=== PATIENT | male | born 1935 | race Caucasian/White ===

== ENCOUNTER → 2016-11-11 | Outpatient (CLI) | payer OTHER ==
[~2016-11-11] MED LIST: ASPEC81 PO; ATOR-26 PO; CLOP1TAB15 PO; ENAL1TAB29 PO; EZET10TA63 PO; FENO200C6 PO; HYDC25 PO; METO25TA3 PO; MULT-513 PO; PRLSRUNK PO
== END | disposition home or self-care (01) ==
LOC: C.PATHSPEC 11:12
PROVIDERS: ATTEND Dentist Endodontics
DX: K05.5 Other periodontal diseases (principal)

== ENCOUNTER → 2017-01-21 | Outpatient (CLI) | payer OTHER ==
[2017-01-21 09:37] LABS: BASO % 0.4 %; BASO ABS # 0.03 K/uL (0-0.2); COMPLETE YES; EOS % 6.8 %; HEMATOCRIT 41.4 % (42-52); IG% 0.3 %; LYMPH % 17.6 %; LYMPH ABS # 1.27 K/uL (1.2-3.4); MEAN CORPUSCULAR HEMOGLOBIN 32.2 pg (25-34); MONO % 21.5 %; NEUT % 53.4 %; PLATELET COUNT 265 K/uL (130-400); WHITE BLOOD COUNT 7.22 K/uL (4.8-10.8)
[2017-01-21 09:51] LABS: ALT/SGPT 29 U/L (12-78); AST/SGOT 21 U/L (15-37); BLOOD UREA NITROGEN 16 mg/dl (7-18); BUN/CREATININE RATIO 13.2 (10-20); CALCIUM 8.8 mg/dl (8.5-10.1); CARBON DIOXIDE 30 mmol/L (21-32); CHLORIDE 95 mmol/L (98-107); CHOLESTEROL 75 mg/dl (0-200); GLUCOSE 87 mg/dl (70-99); POTASSIUM 3.8 mmol/L (3.5-5.1); SODIUM 130 mmol/L (136-145); TRIGLYCERIDES 105 mg/dl (0-150); VERY LOW DENSITY LIPOPROT CALC 21 mg/dl
[2017-01-21 10:01] LABS: ALB/GLOB RATIO 1.2 (0.9-2); ALKALINE PHOSPHATASE 93 U/L (45-117); CHOLESTEROL/HDL RATIO 1.8; HDL CHOLESTEROL 42 mg/dl; LDL CHOLESTEROL CALCULATED 12 mg/dl; THYROID STIMULATING HORMONE 0.993 uIu/ml (0.300-4.500)
== END | disposition home or self-care (01) ==
LOC: C.LAB1850 07:47
PROVIDERS: ATTEND Nurse Practitioner Family
DX: K21.9 Gastro-esophageal reflux disease without esophagitis (principal); E78.00 Pure hypercholesterolemia, unspecified; I10 Essential (primary) hypertension; I25.10 Atherosclerotic heart disease of native coronary artery without angina pectoris; Z85.46 Personal history of malignant neoplasm of prostate

== ENCOUNTER → 2017-04-20 | Outpatient (CLI) | payer OTHER ==
[~2017-04-20] VITALS: Ht 177.8 cm; Wt 94.1 kg
[~2017-04-20] MED LIST changes: +AMLO-110 PO; +ASPI81TA21 PO; +CITA10TA4 PO; +COEN1CAP7 PO; +DTR/5 PO; +HYDR25TA4 PO; +ISOS120T5 PO; +METO50TA7 PO; +NTRGSL/4 UT; +PANT40TA PO; +RANITAB33 PO
[2017-04-20 13:37] VITALS: BP 150/80; PULSE 66; Ht 177.8 cm; Wt 94.1 kg
== END | disposition home or self-care (01) ==
LOC: C.NEUR 13:00
PROVIDERS: ATTEND Physician Assistant Medical
DX: G47.33 Obstructive sleep apnea (adult) (pediatric) (principal); R53.83 Other fatigue; I25.10 Atherosclerotic heart disease of native coronary artery without angina pectoris

== ENCOUNTER 2017-04-21 16:55 | Emergency (ER) | payer OTHER ==
[~2017-04-21] VITALS: Ht 177.8 cm; Wt 94.0 kg
[~2017-04-21 16:55] MED LIST changes: -AMLO-110 PO; -ASPI81TA21 PO; -CITA10TA4 PO; -COEN1CAP7 PO; -DTR/5 PO; -HYDR25TA4 PO; -ISOS120T5 PO; -METO50TA7 PO; -NTRGSL/4 UT; -PANT40TA PO; -RANITAB33 PO
[2017-04-21 17:02] VITALS: TEMP 37; Ht 177.8 cm; Wt 94.0 kg
[2017-04-21] MEDS ORDERED: FAMOTIDINE 20MG/5ML IV PUSH IV STA (18:55)
[2017-04-21] MEDS ORDERED: SODIUM CHLORIDE 0.9% 1000ML 1,000 ML IV STA (18:55)
--- NOTE | 2017-04-21 19:04 | EMERGENCY ROOM VISIT NOTE ---
History Report prepared by Eddi: Annmarie Espinosa Under the Supervision of: Dr. Meir Boateng M.D. First contact with patient: 18:50 Chief Complaint: OTHER COMPLAINT Stated Complaint: PAIN IN CHEST,CARDIAC HX History of Present Illness The patient is a 81 year old male who presents to the Emergency Room with complaints of constant central chest pain beginning about 3 hours ago. The patient states he sneezed several times which started his chest pain. He reports that over the past couple months when he would sneeze he would had episodes of chest pain similar to this. The patient has four [address] He has a history of heart attacks, GERD, and bypass surgery. The patient takes Plavix and an Aspirin daily. He reports his pain doesn't feel like his GERD or previous heart attacks. The patient follows up with Dr. Veronica-Cardiology. He notes shortness of breath but denies any sweating, lightheadedness, urinary symptoms, or nausea. The patient reports his bowel movements have been normal and regular. He notes taking nitroglycerin prior to arrival with no relief. The patient has a history of prostate cancer. Source of History: patient Onset: 3 hours ago Position: chest Timing: constant Modifying Factors (Relieving): other (none) Associated Symptoms: + chest pain, + SOB, No diaphoresis, No nausea, No urinary symptoms Review of Systems See HPI for pertinent positives and negatives. A total of ten systems were reviewed and were otherwise negative. Past Medical & Surgical Medical Problems: (1) GERD (gastroesophageal reflux disease) (2) Heart attack (3) Prostate cancer Family History Patient reports no known family medical history. Social History Smoking Status: Never Smoker Marital Status: Housing Status: lives with significant other Current/Historical Medications Scheduled Amlodipine (Norvasc), 5 MG PO DAILY Aspirin Enteric Coated (Ecotrin Or Generic), 81 MG PO DAILY Atorvastatin (Lipitor), 80 MG PO DAILY Citalopram Hydrobromide (Citalopram Hydrobromide), 1 TAB PO DAILY Clopidogrel (Plavix), 75 MG PO DAILY Coenzyme Q10 (Ubidecarenone) (Coq10), 400 MG PO DAILY Enalapril Maleate (Vasotec), 20 MG PO HS Ezetimibe (Zetia), 10 MG PO DAILY Hydrochlorothiazide (Hctz), 25 MG PO DAILY Isosorbide Mononitrate Ext Rel (Imdur Ext Rel), 120 MG PO QAM Metoprolol Succ (Toprol Xl) (Toprol-Xl), 50 MG PO QPM Metoprolol Succ (Toprol Xl) (Toprol-Xl), 25 MG PO QAM Multivitamins/Minerals (Mvi With Minerals), 1 TAB PO DAILY Nitroglycerin (Nitrostat), 0.4 MG UT PRN Pantoprazole (Protonix), 40 MG PO DAILY Ranitidine Hcl (Zantac), 75 MG PO DAILY Allergies Coded Allergies: No Known Allergies (Unverified , 03/21/11) Physical Exam Vital Signs Date Time Temp Pulse Resp B/P (MAP) Pulse Ox O2 Delivery O2 Flow Rate FiO2 04/21/17 23:11 79 20 157/91 93 Room Air 04/21/17 22:36 66 22 95 04/21/17 22:01 172/84 04/21/17 21:40 67 22 95 04/21/17 21:30 152/82 04/21/17 21:00 158/86 04/21/17 20:40 64 23 97 04/21/17 20:35 67 25 96 04/21/17 20:30 164/88 04/21/17 20:05 75 25 96 04/21/17 20:00 158/81 04/21/17 19:35 64 22 95 04/21/17 19:34 64 04/21/17 19:32 67 27 145/71 95 Room Air 04/21/17 19:08 95 Room Air 04/21/17 17:02 37.0 64 18 122/71 93 Room Air Physical Exam GENERAL: Awake, alert, well-appearing, in no distress HENT: Normocephalic, atraumatic. Oropharynx unremarkable. EYES: Normal conjunctiva. Sclera non-icteric. NECK: Supple. No nuchal rigidity. FROM. No JVD. RESPIRATORY: Clear to auscultation. CARDIAC: Regular rate, normal rhythm. Extremities warm and well perfused. Pulses equal. ABDOMEN: Mild epigastric discomfort, no peritoneal signs. Soft, non-distended. No rebound or guarding. No masses. RECTAL: Deferred. MUSCULOSKELETAL: Chest examination reveals no tenderness. The back is symmetrical on inspection without obvious abnormality. There is no CVA tenderness to palpation. No joint edema. LOWER EXTREMITIES: Calves are equal size bilaterally and non-tender. No edema. No discoloration. NEURO: Normal sensorium. No sensory or motor deficits noted. SKIN: No rash or jaundice noted. Medical Decision & Procedures ER Provider Diagnostic Interpretation: Radiology results as stated below per my review and radiologist interpretation: CHEST ONE VIEW PORTABLE FINDINGS: There are postsurgical changes of midline sternotomy. There is mild elevation right hemidiaphragm. The heart is at the upper limits of normal in size. There is no failure. There is no focal pulmonary consolidation. There are no pleural effusions. There is atheromatous calcification of the aortic knob.[ IMPRESSION: No active disease in the chest. Electronically signed by: Corwin Shrestha M.D. Laboratory Results 04/21/17 19:15 Red Blood Count 4.73, Mean Corpuscular Volume 96.8, Mean Corpuscular Hemoglobin 33.6, Mean Corpuscular Hemoglobin Concent 34.7, Mean Platelet Volume 10.5, Neutrophils (%) (Auto) 64.9, Lymphocytes (%) (Auto) 19.0, Monocytes (%) (Auto) 11.2, Eosinophils (%) (Auto) 4.5, Basophils (%) (Auto) 0.3, Neutrophils # (Auto ) 5.63, Lymphocytes # (Auto) 1.65, Monocytes # (Auto) 0.97, Eosinophils # (Auto ) 0.39, Basophils # (Auto) 0.03 04/21/17 19:15 Test 04/21/17 19:15 04/21/17 19:21 04/21/17 22:05 White Blood Count 8.68 K/uL (4.8-10.8) Red Blood Count 4.73 M/uL (4.7-6.1) Hemoglobin 15.9 g/dL (14.0-18.0) Hematocrit 45.8 % (42-52) Mean Corpuscular Volume 96.8 fL (80-100) Mean Corpuscular Hemoglobin 33.6 pg (25-34) Mean Corpuscular Hemoglobin Concent 34.7 g/dl (32-36) Platelet Count 242 K/uL (130-400) Mean Platelet Volume 10.5 fL (7.4-10.4) Neutrophils (%) (Auto) 64.9 % Lymphocytes (%) (Auto) 19.0 % Monocytes (%) (Auto) 11.2 % Eosinophils (%) (Auto) 4.5 % Basophils (%) (Auto) 0.3 % Neutrophils # (Auto) 5.63 K/uL (1.4-6.5) Lymphocytes # (Auto) 1.65 K/uL (1.2-3.4) Monocytes # (Auto) 0.97 K/uL (0.11-0.59) Eosinophils # (Auto) 0.39 K/uL (0-0.5) Basophils # (Auto) 0.03 K/uL (0-0.2) RDW Standard Deviation 48.2 fL (36.4-46.3) RDW Coefficient of Variation 13.5 % (11.5-14.5) Immature Granulocyte % (Auto) 0.1 % Immature Granulocyte # (Auto) 0.01 K/uL (0.00-0.02) Anion Gap 8.0 mmol/L (3-11) Est Creatinine Clear Calc Drug Dose 54.2 ml/min Estimated GFR () 63.4 Estimated GFR (Non- 54.7 BUN/Creatinine Ratio 16.5 (10-20) Calcium Level 9.3 mg/dl (8.5-10.1) Total Bilirubin 0.6 mg/dl (0.2-1) Direct Bilirubin 0.2 mg/dl (0-0.2) Aspartate Amino Transf (AST/SGOT) 29 U/L (15-37) Alanine Aminotransferase (ALT/SGPT) 38 U/L (12-78) Alkaline Phosphatase 99 U/L (45-117) Total Protein 7.5 gm/dl (6.4-8.2) Albumin 3.9 gm/dl (3.4-5.0) Lipase 259 U/L (73-393) Bedside Lactic Acid Venous 1.65 mmol/L (0.90-1.70) Troponin I < 0.015 ng/ml (0-0.045) Laboratory results reviewed by me Medications Administered Medications (Trade) Dose Ordered Sig/Samantha Route Start Time Stop Time Status Last Admin Dose Admin Famotidine (Pepcid 20mg Iv Push) 20 mg NOW STAT IV 04/21/17 18:55 04/21/17 19:00 DC 04/21/17 19:31 20 MG Sodium Chloride 1,000 ml @ 999 mls/hr Q1H1M STAT IV 04/21/17 18:55 04/21/17 19:55 DC 04/21/17 19:31 999 MLS/HR Ketorolac Tromethamine (Toradol Inj) 15 mg NOW STAT IV 04/21/17 22:40 04/21/17 22:42 DC 04/21/17 23:08 15 MG Miscellaneous Medication (Gi Cocktail) 24 ml NOW STAT PO 04/21/17 22:40 04/21/17 22:42 DC 04/21/17 23:09 24 ML ECG Indication: chest pain Rate (beats per minute): 64 Rhythm: normal sinus Findings: no acute ischemic change, other (normal axis, nonspecific intraventicular block ) Comparison ECG Date: 03/22/2011 ED Course 1853: The patient was evaluated in room A10. A complete history and physical exam was performed. 2335: I updated the patient on his test results. 2346: I reevaluated the patient. Discussed results and discharge instructions: He verbalized understanding and agreement. The patient is ready for discharge. Medical Decision I reviewed the patient's past medical history, medications, and the nursing notes as described above. Differential diagnosis: Etiologies such as cardiac ischemia, aortic dissection, pulmonary embolism, pneumonia, pneumothorax, musculoskeletal, infections, pericarditis, myocarditis , esophageal rupture, gastrointestinal, as well as others were entertained. The patient is an 81-year-old gentleman with a past medical history of CAD status post stents who presents emergency Department with chest pain in the setting of severe sneezing episodes in the setting of environmental allergies per hpi. On arrival the patient is no acute distress, afebrile stable vital signs. Patient has reproducible pain to the epigastrium and sternum suggesting likely muscular etiology versus gastritis/reflux. EKG unremarkable. Troponin negative 2 with delta troponin 6 hours from onset of symptoms. Thus cardiac etiology is unlikely. Labs otherwise unremarkable including WBC within normal limits. Patient reports improvement of his symptoms however then had repeat sneezing episode with return of his pain. Again findings most consistent with muscular strain/costochondritis. Discussed with the patient strategies to minimize sneezing episodes with antihistamine and Flonase. Findings and plan for follow-up reviewed with patient. Patient agreeable and d/c'd per discharge instructions. Medication Reconcilliation Current Medication List: was personally reviewed by vt Blood Pressure Screening Patient's blood pressure: Elevated blood pressure Blood pressure disposition: Elevated BP felt to be situational Impression Primary Impression: Substernal chest pain Scribe Attestation The scribe's documentation has been prepared under my direction and personally reviewed by me in its entirety. I confirm that the note above accurately reflects all work, treatment, procedures, and medical decision making performed by me. Departure Information Dispostion Home / Self-Care Referrals Jorge Owens III, CRNP (PCP) Forms HOME CARE DOCUMENTATION FORM, IMPORTANT VISIT INFORMATION, WORK / SCHOOL INSTRUCTIONS Patient Instructions ED Chest Pain Atypical Unkn Cause, ED Chest Pain Costochondritis, My [facility] Additional Instructions Please follow up with your primary care physician in the next 1-3 days for re- evaluation. The cause of your symptoms is not clear at this time but may be due to muscular strain in the setting of your sneezing. Otherwise, your exam, EKG, chest xray, and lab results did not show signs of an emergent condition at this time. Use your Flonase daily to help prevent sneezing episodes, which may provoke your symptoms. Additional you may use [id number] antihistamines such as Claritin or Zyrtec for additional allergy relief. Return to the emergency department for worsening symptoms as described in the accompanying instructions.
[2017-04-21 19:08] VITALS: O2SAT 95
--- NOTE | 2017-04-21 19:27 | DIAGNOSTIC IMAGING REPORT ---
CHEST ONE VIEW PORTABLE CLINICAL HISTORY: CHEST PAIN COMPARISON STUDY: 02/13/2016 FINDINGS: There are postsurgical changes of midline sternotomy. There is mild elevation right hemidiaphragm. The heart is at the upper limits of normal in size. There is no failure. There is no focal pulmonary consolidation. There are no pleural effusions. There is atheromatous calcification of the aortic knob.[ IMPRESSION: No active disease in the chest. Electronically signed by: Corwin Shrestha M.D. 04/21/2017 7:25 PM Dictated Date/Time: 04/21/2017 7:25 PM
[2017-04-21] MEDS ORDERED: NTRGSL/4 UT (19:28)
[2017-04-21] MEDS ORDERED: COEN1CAP7 PO (19:28)
[2017-04-21] MEDS ORDERED: RANITAB33 PO (19:28)
[2017-04-21] MEDS ORDERED: ASPI81TA21 PO (19:28)
[2017-04-21] MEDS ORDERED: DTR/5 PO (19:28)
[2017-04-21] MEDS ORDERED: ISOS120T5 PO (19:28)
[2017-04-21] MEDS ORDERED: HYDR25TA4 PO (19:28)
[2017-04-21] MEDS ORDERED: PANT40TA PO (19:28)
[2017-04-21] MEDS ORDERED: AMLO-110 PO (19:28)
[2017-04-21] MEDS ORDERED: CITA10TA4 PO (19:28)
[2017-04-21] MEDS ORDERED: METO50TA7 PO ×2 (19:28)
[2017-04-21 19:35] LABS: BASO % 0.3 %; BASO ABS # 0.03 K/uL (0-0.2); EOS % 4.5 %; EOS ABS # 0.39 K/uL (0-0.5); HEMATOCRIT 45.8 % (42-52); HEMOGLOBIN 15.9 g/dL (14.0-18.0); IG# 0.01 K/uL (0.00-0.02); LYMPH ABS # 1.65 K/uL (1.2-3.4); MEAN CELL VOLUME 96.8 fL (80-100); MEAN CORPUSCULAR HEMOGLOBIN 33.6 pg (25-34); MEAN CORPUSCULAR HGB CONC 34.7 g/dl (32-36); MEAN PLATELET VOLUME 10.5 fL (7.4-10.4); MONO % 11.2 %; MONO ABS # 0.97 K/uL (0.11-0.59); NEUT % 64.9 %; NEUT ABS # 5.63 K/uL (1.4-6.5); PLATELET COUNT 242 K/uL (130-400); RED CELL DISTRIBUTION WIDTH CV 13.5 % (11.5-14.5); RED CELL DISTRIBUTION WIDTH SD 48.2 fL (36.4-46.3); WHITE BLOOD COUNT 8.68 K/uL (4.8-10.8)
[2017-04-21 20:10] LABS: ALBUMIN 3.9 gm/dl (3.4-5.0); ALKALINE PHOSPHATASE 99 U/L (45-117); ALT/SGPT 38 U/L (12-78); AST/SGOT 29 U/L (15-37); BLOOD UREA NITROGEN 20 mg/dl (7-18); CALCIUM 9.3 mg/dl (8.5-10.1); CARBON DIOXIDE 27 mmol/L (21-32); CREATININE 1.23 mg/dl (0.60-1.40); GLUCOSE 115 mg/dl (70-99); LIPASE 259 U/L (73-393); POTASSIUM 3.9 mmol/L (3.5-5.1); SODIUM 138 mmol/L (136-145); TOTAL PROTEIN 7.5 gm/dl (6.4-8.2)
[2017-04-21] MEDS ORDERED: KETOROLAC TROMETHAMINE 30 MG/ML VIAL IV STA (22:40)
[2017-04-21] MEDS ORDERED: GI COCKTAIL PO STA (22:40)
[2017-04-21] MEDS ORDERED: LIDOCAINE HCL 2% VISC SOLN 20 ML UDC ONE (23:06)
[2017-04-21] MEDS ORDERED: ALUMINUM/MAGNESIUM SUSP 30 ML UDC ONE (23:06)
[2017-04-21 23:11] VITALS: BP 157/91; PULSE 79; O2SAT 93
== END 2017-04-21 23:35 | disposition home or self-care (01) ==
LOC: C.EDB 16:55 → C.EDA 23:35
DX: R07.2 Precordial pain (principal); K21.9 Gastro-esophageal reflux disease without esophagitis; I50.9 Heart failure, unspecified; Z85.46 Personal history of malignant neoplasm of prostate; Z79.82 Long term (current) use of aspirin; Z79.899 Other long term (current) drug therapy

== ENCOUNTER → 2017-06-15 | Outpatient (CLI) | payer OTHER ==
[~2017-06-15] MED LIST changes: +AMLO-110 PO; -ASPEC81 PO; +ASPI81TA21 PO; +CITA10TA4 PO; +COEN1CAP7 PO; -FENO200C6 PO; -HYDC25 PO; +HYDR25TA4 PO; +ISOS120T5 PO; -METO25TA3 PO; +METO50TA8 PO; +NTRGSL/4 UT; +PANT40TA PO; -PRLSRUNK PO; +RANITAB33 PO
== END | disposition home or self-care (01) ==
LOC: C.LAB1850 13:24
PROVIDERS: ATTEND Urology
DX: C61 Malignant neoplasm of prostate (principal); R33.9 Retention of urine, unspecified; N20.0 Calculus of kidney

== ENCOUNTER → 2017-08-23 | Outpatient (CLI) | payer OTHER ==
[~2017-08-23] MED LIST changes: +ASPI-319 PO; -ASPI81TA21 PO
[2017-08-23 12:56] LABS: BLOOD UREA NITROGEN 26 mg/dl (7-18); CALCIUM 8.9 mg/dl (8.5-10.1); CARBON DIOXIDE 29 mmol/L (21-32); CREATININE 1.37 mg/dl (0.60-1.40); GLUCOSE 76 mg/dl (70-99); POTASSIUM 4.1 mmol/L (3.5-5.1); SODIUM 137 mmol/L (136-145)
== END | disposition home or self-care (01) ==
LOC: C.LAB1850 11:04
PROVIDERS: ATTEND Internal Medicine Cardiovascular Disease
DX: I25.5 Ischemic cardiomyopathy (principal)

== ENCOUNTER → 2017-08-23 | Outpatient (CLI) | payer OTHER ==
--- NOTE | 2017-08-23 11:04 | DIAGNOSTIC IMAGING REPORT ---
(RENAL)RETROPERITON COMP HISTORY: 82 years-old Male C61 Neoplasm of prostate, [id number] Incomplete bladder empt COMPARISON: Acute abdominal series radiographs 02/13/2016 TECHNIQUE: Multiple real-time sonographic images of the kidneys and urinary bladder were obtained assessing grayscale appearance and color flow FINDINGS: The right kidney measures 13.1 x 5.5 x 5.8 cm demonstrates no shadowing renal calculi or hydronephrosis. There are several cysts noted about the right kidney, largest which measures up to 1.1 x 1.3 x 1.1 cm within the interpolar distribution. Left kidney measures 11.8 x 5.7 x 4.7 cm demonstrates no hydronephrosis. Multiple cysts are also noted on the left, largest of which measures up to 1.2 x 1.1 x 1.1 cm within the superior pole. 3 mm calculus of the interpolar left kidney also noted. Left ureteral jet not identified. Mild prominence of the prostate. Urinary bladder is otherwise unremarkable. Post void residual of 28 mL noted. Incidental note is made of mildly heterogeneous coarsened echogenicity of the liver which is nonspecific without focal mass identified. IMPRESSION: 1. 3 mm nonobstructing calculus of the interpolar left kidney. No hydronephrosis. 2. Bilateral renal cysts. 3. Urinary bladder postvoid residual of 28 mL. The above report was generated using voice recognition software. It may contain grammatical, syntax or spelling errors. Electronically signed by: Rio Banegas M.D. 08/23/2017 11:03 AM Dictated Date/Time: 08/23/2017 11:00 AM
== END | disposition home or self-care (01) ==
LOC: C.ULTR 09:55
PROVIDERS: ATTEND Urology
DX: C61 Malignant neoplasm of prostate (principal); R33.9 Retention of urine, unspecified; N20.0 Calculus of kidney; N28.1 Cyst of kidney, acquired

== ENCOUNTER 2021-09-09 08:38 | Inpatient (IN) ==
[2021-09-09] MEDS ORDERED: MECLIZINE HCL 25 MG TAB PO STA (08:53)
--- NOTE | 2021-09-09 08:55 | Emergency Department Note ---
Impression & Plan Acute hyponatremia ADMIT ED Provider Note HPI: The patient is an 86-year-old gentleman with history of coronary artery disease, presents emergency department with a chief complaint of dizziness. Patient states that the symptoms have been ongoing for about the past week, he states his symptoms worsen with certain movements as laying flat and getting up from a seated position or laying down seem to cause him to feel acutely dizzy. Patient states that when he laid down on the MRI table 1 week ago for an MRI of his lumbar spine, he started to feel the sensation after the exam was complete and he got up from laying down. Patient states he has had some nausea, 1 episode of vomiting, denies any chest pain or shortness of breath. Patient also states that on Wednesday he had a Thomas catheter removed secondary to an obstruction of the prostate area from scar tissue, states that he has only had "dribbles" of urine since the catheter was removed. On arrival to the ED the patient does not have any focal deficits, there is no ataxia on [id number] testing bilate rally or on [id number] testing bilaterally, he is otherwise hemodynamically stable and nontoxic-appearing on my initial assessment. ROS: -Neuro: Dizziness/vertigo *10 point review systems was conducted and is otherwise negative unless stated above *Outpatient medications and allergy history reviewed PE: General: Alert, NAD HEENT: Normocephalic, atraumatic Eyes: Extraocular eye movement is intact, no scleral erythema Pulmonary: Clear to auscultation bilaterally, no wheezing Cardio: Regular rate and rhythm GI: Abdomen is soft, nontender : No suprapubic tenderness MSK: No evidence of trauma or malformation of the extremities, no edema Skin: No evidence of rash Neuro: Alert, no focal deficits, equal bilateral face burler strength, symmetrical facial movements are appreciated, no ataxia on [id number] testing bilaterally, no ataxia on [id number] testing bilateral Psychiatric: Cooperative vehicle 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 technician: - An order was placed for continuous cardiac monitoring - Patient was noted to be in sinus rhythm with rate of 60 EKG: Rate: 60 Rhythm: Sinus rhythm Intervals: QRS 138 ms, otherwise within normal limits ST changes: No ST elevation Time: 0856 NIH STROKE SCALE: 1A: Level of consciousness Alert; keenly responsive 0 1B: Ask month and age Both questions right 0 1C: 'Blink eyes' & 'squeeze hands' Performs both tasks 0 2: Horizontal extraocular movements Normal 0 3: Visual car No visual loss 0 4: Facial palsy Normal symmetry 0 5A: Left arm motor drift No drift for 10 seconds 0 5B: Right arm motor drift No drift for 10 seconds 0 6A: Left leg motor drift No drift for 5 seconds 0 6B: Right leg motor drift No drift for 5 seconds 0 7: Limb Ataxia No ataxia 0 8: Sensation Normal; no sensory loss 0 9: Language/aphasia Normal; no aphasia 0 10: Dysarthria Normal 0 11: Extinction/inattention No abnormality 0 TOTAL NIH SCORE =0 Medical Decision Making: Patient presented to the emergency department with symptoms of nausea, states he has had dizziness mostly with positional changes that have been ongoing for the past week. Patient states in general he just does not feel well. On arrival here to the ED he is hemodynamically stable, he is in no acute distress on my initial assessment, he does not have any focal deficits. He has had symptoms for about 1 week, he would not be considered a candidate for any aggressive therapy such as tPA or endovascular intervention for posterior circulation stroke. Early after arrival IV was established, lab work obtained, patient was placed on engine monitor. CT imaging of the head as well as CT imaging of the abdomen and pelvis were ordered. CT imaging of the head does not show any evidence of stroke or intracranial bleeding. CT imaging of the abdomen pelvis without contrast does not show any evidence of urinary tract obstruction, no mention of significant bladder distention. Patient was given meclizine and a 500 cc bolus of normal saline. Lab work did result with evidence of hyponatremia at 119, also hypochloremia. Patient is noted to be on Lasix and he states he has been taking this for the past several days but he normally only uses it "as needed" for swelling in his legs. Suspect this may be the source of his hyponatremia. Patient is still experiencing some dizziness after getting the CT scan. I do have concern given his age and multiple risk factors that posterior circulation stroke should be ruled out, therefore MRI imaging of the brain is ordered. Given his sodium being low, he will require admission, I did discuss this with the on-call midlevel provider for the [facility] hospitalist group and the patient will be admitted for further management. Diagnosis: 1. Acute hyponatremia 2. Dizziness 3. Generalized weakness 4. Hypochloremia 5. Sensation of incomplete voiding of urine Disposition: Admission Hiren Zepeda DO Emergency Medicine Past Med/Surg History Medical History CAD (coronary artery disease) Cardiomyopathy, ischemic Depression GERD (gastroesophageal reflux disease) controlled Hiatal hernia History of adenocarcinoma of prostate History of basal cell carcinoma removed History of squamous cell carcinoma removed Hyperlipidemia Hypertension IVCD (intraventricular conduction defect) follows with Dr. Veronica Myocardial Infarction 1984: CABG 2015: stents Nephrolithiasis Neuropathy of both feet Osteoarthritis Osteoporosis Pulmonary embolism Post-op prostate surgery (1999) Sleep apnea CPAP Spinal stenosis Surgical History H/O cataract extraction bilat History of appendectomy History of colonoscopy History of coronary artery bypass graft x 6 (~1983) 1983 > follows with Dr. Veronica History of esophagogastroduodenoscopy (EGD) History of hernia repair History of lithotripsy (~2012) History of prostatectomy (~1999) hx of cancer> no radiation History of tonsillectomy and adenoidectomy History of tooth extraction Status post arterial stent 4 stents total 2005, 2014 Family History Mother , age 86 of heart issues Myocardial infarction Hypertension Father , age 88 of heart issues Myocardial infarction Prostate cancer Hypertension Brother Myocardial infarction Lung cancer Denies family history of Colon cancer Ovarian cancer Breast cancer Social History Smoking Status: Former smoker Tobacco Type: Cigarettes Age Started Using Tobacco: 18; Age Quit Using Tobacco: 27; packs per day: 0.5; Years Smoked: 9; Second Hand Exposure: No; Hx Alcohol Use: No Hx Substance Use: No Preferred Language: Maltese Communication Ability: Effective Visual Impairment: Limited Hearing Ability: Normal Adjunct Art History Instructor Required: No Beliefs That Will Affect Care: None marital status: Current Living Situation: Spouse current occupational status: retired 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) How many Children do You have: 1 Feels Safe at Home: Yes Childhood Exposure to Second-Hand Smoke: No caffeine: No during the past year weight has: remained stable Dental Care, Regularly: Yes Physical Activity Frequency: Does not Exercise Seatbelt Use: sometimes Sunscreen Use: No Assistive Devices: CPAP and Glasses Allergies Allergies Allergy/AdvReac Type Severity Reaction Status Date / Time meloxicam AdvReac Mild nausea Verified 09/09/21 10:07 Home Meds Home Medications Medication Instructions Recorded Confirmed aspirin 81 mg tablet,delayed 81 mg PO HS 12/17/18 09/09/21 release coQ10 (ubiquinol) 100 mg capsule 200 mg PO HS 12/17/18 09/09/21 multivitamin 1 tab PO HS 12/17/18 09/09/21 denosumab 60 mg/mL subcutaneous 60 mg SUBCUT .Q6M 06/05/21 09/09/21 syringe (Prolia) ezetimibe 10 mg tablet 10 mg PO QAM 07/28/21 09/09/21 spironolactone 25 mg tablet 25 mg PO QAM 07/28/21 09/09/21 (Aldactone) pantoprazole 20 mg tablet,delayed 20 mg PO QAM 08/20/21 09/09/21 release tamsulosin 0.4 mg capsule 0.4 mg PO HS 08/20/21 09/09/21 Previous Rx's Medication Instructions Recorded nitroglycerin 0.4 mg sublingual 0.4 mg SUBLINGUAL UD PRN #30 tab 05/22/20 tablet (Nitrostat) ketoconazole 2 % shampoo 1 applic TOPICAL .COMPLEX #120 ml 10/24/20 furosemide 20 mg tablet 20 mg PO DAILY PRN #30 tab 03/13/21 carvedilol 25 mg tablet 25 mg PO BID #180 tab 05/15/21 atorvastatin 80 mg tablet 80 mg PO QAM #90 tab 07/10/21 sacubitril 97 mg-valsartan 103 mg 1 tab PO BID #180 tab 08/25/21 tablet (Entresto) citalopram 20 mg tablet 20 mg PO HS #90 tab 08/26/21 Results & Data (ED) Vital Signs Vital Signs - 24 hr 09/09/21 08:42 09/09/21 09:08 09/09/21 09:30 Temperature 36.8 C Temperature Source Temporal Artery Scan Pulse Rate 64 59 L 70 Pulse Rate from SpO2 Sensor 59 L Pulse Rhythm Regular Pulse Strength Normal Respiratory Rate 20 22 20 Respiratory Effort / Characteristics Non-Labored Spontaneous Respiratory Depth Normal Respiratory Pattern Regular Blood Pressure 148/84 H Blood Pressure Mean 105 Blood Pressure Position Sitting Pulse Oximetry 98 97 Oxygen Delivery Method Room Air Sepsis Recent Fever Within 48 Hours No Sepsis New/Unexplained Change in Mental Status N/A Sepsis Action Taken by Nursing No Action Required 09/09/21 10:00 Temperature Temperature Source Pulse Rate 63 Pulse Rate from SpO2 Sensor 63 Pulse Rhythm Pulse Strength Respiratory Rate 21 Respiratory Effort / Characteristics Respiratory Depth Respiratory Pattern Blood Pressure 151/82 H Blood Pressure Mean 105 Blood Pressure Position Pulse Oximetry 98 Oxygen Delivery Method Sepsis Recent Fever Within 48 Hours Sepsis New/Unexplained Change in Mental Status Sepsis Action Taken by Nursing Laboratory Data Result diagrams: 09/09/21 09:00 09/09/21 09:00 Lab Results 09/09/21 09/09/21 09/09/21 Range/Units 08:58 09:00 09:00 WBC 7.88 (4.8-10.8) K/uL RBC 3.76 L (4.7-6.1) M/uL Hgb 12.3 L (14.0-18.0) g/dL Hct 34.3 L (42-52) % MCV 91.2 (80-100) fL MCH 32.7 (25-34) pg MCHC 35.9 (32-36) g/dL RDW Std Deviation 41.0 (36.4-46.3) fL RDW Coeff of Pito 12.2 (11.5-14.5) % Plt Count 272 (130-400) K/uL MPV 9.4 (7.4-10.4) fL Immature Gran % (Auto) 0.4 % Neut % (Auto) 67.0 % Lymph % (Auto) 22.5 % [place] % (Auto) 9.0 % Eos % (Auto) 1.0 % Baso % (Auto) 0.1 % Neut # (Auto) 5.28 (1.4-6.5) K/uL Lymph # (Auto) 1.77 (1.2-3.4) K/uL [place] # (Auto) 0.71 H (0.11-0.59) K/uL Eos # (Auto) 0.08 (0-0.5) K/uL Baso # (Auto) 0.01 (0-0.2) K/uL Immature Gran # (Auto) 0.03 H (0.00-0.02) K/uL Acanthocytes (Spur) 1+ PT 11.9 (9.0-12.0) Seconds INR 1.1 (0.9-1.1) APTT 26.3 (21.0-31.0) Seconds PTT Ratio 1.0 Sodium (136-145) mmol/L Potassium (3.5-5.1) mmol/L Chloride (98-107) mmol/L Carbon Dioxide (21-32) mmol/L Anion Gap (3-11) BUN (6-23) mg/dl Creatinine (0.6-1.4) mg/dl Est Cr Clr Drug Dosing ml/min Est GFR ( Amer) ml/min Est GFR (Non-Af Amer) ml/min BUN/Creatinine Ratio (10-20) Glucose (70-99(Fasting)) mg/dl POC Glucose 120 H (70-99) mg/dl Calcium (8.5-10.1) mg/dl Total Bilirubin (0.2-1.0) mg/dl AST (13-39) U/L ALT (7-52) U/L Alkaline Phosphatase (34-104) U/L Troponin I High Sens (0-20) pg/ml Total Protein (6.0-8.3) gm/dl Albumin (3.4-5.0) gm/dl Globulin (2.5-4.0) gm/dl Albumin/Globulin Ratio (0.9-2) 09/09/21 Range/Units 09:00 WBC (4.8-10.8) K/uL RBC (4.7-6.1) M/uL Hgb (14.0-18.0) g/dL Hct (42-52) % MCV (80-100) fL MCH (25-34) pg MCHC (32-36) g/dL RDW Std Deviation (36.4-46.3) fL RDW Coeff of Pito (11.5-14.5) % Plt Count (130-400) K/uL MPV (7.4-10.4) fL Immature Gran % (Auto) % Neut % (Auto) % Lymph % (Auto) % [place] % (Auto) % Eos % (Auto) % Baso % (Auto) % Neut # (Auto) (1.4-6.5) K/uL Lymph # (Auto) (1.2-3.4) K/uL [place] # (Auto) (0.11-0.59) K/uL Eos # (Auto) (0-0.5) K/uL Baso # (Auto) (0-0.2) K/uL Immature Gran # (Auto) (0.00-0.02) K/uL Acanthocytes (Spur) PT (9.0-12.0) Seconds INR (0.9-1.1) APTT (21.0-31.0) Seconds PTT Ratio Sodium 119 L* (136-145) mmol/L Potassium 4.3 (3.5-5.1) mmol/L Chloride 87 L (98-107) mmol/L Carbon Dioxide 23 (21-32) mmol/L Anion Gap 9 (3-11) BUN 18 (6-23) mg/dl Creatinine 1.20 (0.6-1.4) mg/dl Est Cr Clr Drug Dosing 50.6 ml/min Est GFR ( Amer) 63.1 ml/min Est GFR (Non-Af Amer) 54.4 ml/min BUN/Creatinine Ratio 15.0 (10-20) Glucose 112 H (70-99(Fasting)) mg/dl POC Glucose (70-99) mg/dl Calcium 9.3 (8.5-10.1) mg/dl Total Bilirubin 1.0 (0.2-1.0) mg/dl AST 17 (13-39) U/L ALT 17 (7-52) U/L Alkaline Phosphatase 59 (34-104) U/L Troponin I High Sens 8.3 (0-20) pg/ml Total Protein 6.6 (6.0-8.3) gm/dl Albumin 4.2 (3.4-5.0) gm/dl Globulin 2.4 L (2.5-4.0) gm/dl Albumin/Globulin Ratio 1.8 (0.9-2) Administered Medications Discontinued Medications Sodium Chloride (Nss) 500 mls @ 999 mls/hr IV .Q31M CHRIS Stop: 09/09/21 09:30 Last Admin: 09/09/21 09:22 Dose: 999 mls/hr Documented by: [id number] Meclizine HCl (Meclizine Hcl 25 Mg Tab) 25 mg PO NOW STA Stop: 09/09/21 08:54 Last Admin: 09/09/21 09:22 Dose: 25 mg Documented by: [id number] Imaging Data Radiologist's Impression: Chest X-Ray 09/09/21 08:53 XR chest 1V portable CLINICAL HISTORY: dizzy TECHNIQUE: Single frontal radiograph of the chest was obtained. Comparison: Comparison is made to chest radiograph 12/23/2020 FINDINGS: Median sternotomy wires are unchanged. Calcified aortic knob is seen. Lungs are underinflated but clear. No evidence of pleural effusion or pneumothorax. IMPRESSION: No acute chest disease. ACT 112: Negative or not required by law. Electronically signed by: Segundo Vergara M.D. 09/09/2021 9:[address] 09/09/21 08:53 CT head/brain wo con CLINICAL HISTORY: dizzy Technique: Contiguous axial CT images of the head were acquired from the base of the skull to the vertex without intravenous contrast administration. Images were viewed in brain, subdural and bone windows. Automated dose lowering techniques and/or adjustment according to patient size were utilized for this exam. Comparison: Comparison is made to CT head 12/17/2018 Findings: Areas of decreased attenuation are present in the periventricular and subcortical white matter bilaterally consistent with small vessel ischemic disease. Generalized cerebral atrophy with commensurate enlargement of the ventricles, sulci, and cisterns is also present. There is no acute intracranial hemorrhage or evidence of acute territorial infarction. No shift of the midline structures, mass effect, or extra-axial abnormalities are shown. Atherosclerotic calcifications are present in the intracranial segments of the internal carotid arteries. Imaged portions of the paranasal sinuses and mastoid air cells are clear. The orbits appear normal. There are no acute fractures of the calvaria or scalp swelling. Impression: No acute intracranial hemorrhage, no evidence of acute territorial infarction or other acute intracranial disease process. ACT 112: Negative or not required by law. Electronically signed by: Segundo Vergara M.D. 09/09/2021 9:55 AM Abdomen/Pelvis CT 09/09/21 08:59 CT abd pelvis wo con CLINICAL HISTORY: urinary straining, eval for obstruction TECHNIQUE: Helical axial images of the abdomen and pelvis were obtained. Automated dose lowering techniques and/or adjustment according to patient size were utilized for this exam. This exam was performed without intravenous contrast. CT DOSE: 1349.63 mGy.cm COMPARISON: Comparison is made to CT abdomen pelvis 07/28/2021 FINDINGS: Lower chest: Bibasilar atelectasis versus scarring is seen. Postsurgical changes of cardiac bypass surgery noted. Partial visualization of gynecomastia. Liver: We will hypodensities are seen in the liver compatible with cysts. Additional subcentimeter hypodensities are too small to characterize. Gallbladder and biliary tree: Cholelithiasis is seen without evidence of cholecystitis. No intra- or extrahepatic biliary ductal dilation. Pancreas: Unremarkable, no focal lesions. Spleen: Splenule is incidentally noted. Adrenals: Unremarkable. Kidneys and ureters: Multiple cysts are seen. In addition, there are hyperdensities in the kidneys, similar in appearance to prior exam, image may represent proteinaceous or hemorrhagic cyst. Bladder: There is a tiny focus of air in the bladder, correlation with recent instrumentation is recommended. Reproductive organs: Patient is status post prostatectomy. Bowel: Diverticulosis is seen without evidence of diverticulitis. Lymph nodes Retroperitoneal: Unremarkable. Mesenteric: Subcentimeter lymph nodes are noted. Pelvic: Unremarkable. Peritoneum: Redemonstration of mesenteric stranding is seen. Vessels: There is a tiny infrarenal aortic aneurysm measuring 24 mm in diameter. Aortic calcifications are seen. Abdominal wall: Calcifications are noted in the right iliac is musculature, unchanged from prior exam. Bones: Degenerative changes in the visualized spine. Sclerotic healing changes are seen in the right rib. IMPRESSION: 1. No evidence of hydronephrosis or obstruction. Patient status post prostatectomy. There is a tiny focus of air in the bladder, correlation for recent instrumentation is recommended. 2. Innumerable hepatic and renal cysts. 3. Continued mesenteric stranding. ACT 112: Negative or not required by law. Electronically signed by: Segundo Vergara M.D. 09/09/2021 10:10 AM Discharge Plan Visit Data Chief Complaint: Dizziness Stated Complaint: DIZZINESS, NAUSEA, WEAKNESS ED Provider: Hiren Zepeda Discharge Problem: Acute hyponatremia Forms Stand Alone Forms: My [facility] [employer] Prescriptions Prescriptions: No Action atorvastatin 80 mg tablet 80 mg PO QAM Qty: 90 RF: 3 Entresto 97-103 mg tablet 1 tab PO BID Qty: 180 RF: 3 citalopram 20 mg tablet 20 mg PO HS Qty: 90 RF: 3 nitroglycerin [Nitrostat] 0.4 mg tablet, sublingual 0.4 mg sublingual UD PRN (Reason: chest pain) Qty: 30 RF: 2 ketoconazole 2 % shampoo 1 applic topical .COMPLEX Qty: 120 RF: 2 carvedilol 25 mg tablet 25 mg PO BID Qty: 180 RF: 3 furosemide 20 mg tablet 20 mg PO DAILY PRN (Reason: edema, weight gain, SOB) Qty: 30 RF: 11 multivitamin Tablet 1 tab PO HS RF: 0 aspirin 81 mg Tablet,Delayed Release (Dr/Ec) 81 mg PO HS RF: 0 coQ10 (ubiquinol) 100 mg Capsule 200 mg PO HS RF: 0 Prolia 60 mg/mL syringe 60 mg SUBCUT .Q6M RF: 0 spironolactone [Aldactone] 25 mg tablet 25 mg PO QAM RF: 0 ezetimibe 10 mg tablet 10 mg PO QAM RF: 0 pantoprazole 20 mg tablet,delayed release (DR/EC) 20 mg PO QAM RF: 0 tamsulosin 0.4 mg capsule 0.4 mg PO HS RF: 0 Referrals Referrals: oJrge Owens III, CRNP [Primary Care Provider] -
[2021-09-09] MEDS ORDERED: SODIUM CHLORIDE 0.9% 500 ML IV SCH (09:00)
[2021-09-09 09:18] LABS: Hematocrit (blood only) 34.3 % (42-52); Hemoglobin 12.3 g/dL (14.0-18.0); Mean Corpuscular Hemoglobin 32.7 pg (25-34); Mean Corpuscular Hgb Conc 35.9 g/dL (32-36); Mean Corpuscular Volume 91.2 fL (80-100); Mean Platelet Volume 9.4 fL (7.4-10.4); Platelet Count 272 K/uL (130-400); RDW Coefficient of Variation 12.2 % (11.5-14.5); Red Blood Count 3.76 M/uL (4.7-6.1); White Blood Count 7.88 K/uL (4.8-10.8)
[2021-09-09 09:31] LABS: INR 1.1 (0.9-1.1); Partial Thromboplastin Time 26.3 Seconds (21.0-31.0); Prothrombin Time 11.9 Seconds (9.0-12.0)
--- NOTE | 2021-09-09 09:44 | XRay Report ---
XR chest 1V portable CLINICAL HISTORY: dizzy TECHNIQUE: Single frontal radiograph of the chest was obtained. Comparison: Comparison is made to chest radiograph 12/23/2020 FINDINGS: Median sternotomy wires are unchanged. Calcified aortic knob is seen. Lungs are underinflated but javier ar. No evidence of pleural effusion or pneumothorax. IMPRESSION: No acute chest disease. ACT 112: Negative or not required by law. Electronically signed by: Segundo Vergara M.D. 09/09/2021 9:42 AM
[2021-09-09 09:46] LABS: Acanthocytes 1+; Basophils # (auto) 0.01 K/uL (0-0.2); Basophils % (auto) 0.1 %; Eosinophils # (auto) 0.08 K/uL (0-0.5); Immature Granulocytes # (auto) 0.03 K/uL (0.00-0.02); Immature Granulocytes % (auto) 0.4 %; Lymphocytes # (auto) 1.77 K/uL (1.2-3.4); Lymphocytes % (auto) 22.5 %; Monocytes # (auto) 0.71 K/uL (0.11-0.59); Neutrophils # (auto) 5.28 K/uL (1.4-6.5)
[2021-09-09 09:52] LABS: Troponin I High Sensitivity 8.3 pg/ml (0-20)
--- NOTE | 2021-09-09 09:57 | CT Scan Report ---
CT head/brain wo con CLINICAL HISTORY: dizzy Technique: Contiguous axial CT images of the head were acquired from the base of the skull to the jahaira xavier without intravenous contrast administration. Images were viewed in brain, subdural and bone [facility]. Automated dose lowering techniques and/or adjustment according to patient size were utilized for this exam. Comparison: Comparison is made to CT head 12/17/2018 Findings: Areas of decreased attenuation are present in the periventricular and subcortical white matter bilate rally consistent with small vessel ischemic disease. Generalized cerebral atrophy with commensurate e nlargement of the ventricles, sulci, and cisterns is also present. There is no acute intracranial hem orrhage or evidence of acute territorial infarction. No shift of the midline structures, mass effect, or extra-axial abnormalities are shown. Atherosclerotic calcifications are present in the intracran ial segments of the internal carotid arteries. Imaged portions of the paranasal sinuses and mastoid air cells are clear. The orbits appear normal. There are no acute fractures of the calvaria or scalp swelling. Impression: No acute intracranial hemorrhage, no evidence of acute territorial infarction or other acute intracra nial disease process. ACT 112: Negative or not required by law. Electronically signed by: Segundo Vergara M.D. 09/09/2021 9:55 AM
[2021-09-09 10:12] LABS: Albumin Globulin Ratio 1.8 (0.9-2); Albumin Level 4.2 gm/dl (3.4-5.0); Calcium 9.3 mg/dl (8.5-10.1); Creatinine Clr Calc Pharmacy 50.6 ml/min; Est GFR (African American) 63.1 ml/min; Est GFR (Non-African American) 54.4 ml/min; Globulin 2.4 gm/dl (2.5-4.0); Potassium 4.3 mmol/L (3.5-5.1); Total Protein 6.6 gm/dl (6.0-8.3)
--- NOTE | 2021-09-09 10:12 | CT Scan Report ---
CT abd pelvis wo con CLINICAL HISTORY: urinary straining, eval for obstruction TECHNIQUE: Helical axial images of the abdomen and pelvis were obtained. Automated dose lowering tech niques and/or adjustment according to patient size were utilized for this exam. This exam was perfor med without intravenous contrast. CT DOSE: 1349.63 mGy.cm COMPARISON: Comparison is made to CT abdomen pelvis 07/28/2021 FINDINGS: Lower chest: Bibasilar atelectasis versus scarring is seen. Postsurgical changes of cardiac bypass s urgery noted. Partial visualization of gynecomastia. Liver: We will hypodensities are seen in the liver compatible with cysts. Additional subcentimeter hy podensities are too small to characterize. Gallbladder and biliary tree: Cholelithiasis is seen without evidence of cholecystitis. No intra- or extrahepatic biliary ductal dilation. Pancreas: Unremarkable, no focal lesions. Spleen: Splenule is incidentally noted. Adrenals: Unremarkable. Kidneys and ureters: Multiple cysts are seen. In addition, there are hyperdensities in the kidneys, s imilar in appearance to prior exam, image may represent proteinaceous or hemorrhagic cyst. Bladder: There is a tiny focus of air in the bladder, correlation with recent instrumentation is loan mmended. Reproductive organs: Patient is status post prostatectomy. Bowel: Diverticulosis is seen without evidence of diverticulitis. Lymph nodes Retroperitoneal: Unremarkable. Mesenteric: Subcentimeter lymph nodes are noted. Pelvic: Unremarkable. Peritoneum: Redemonstration of mesenteric stranding is seen. Vessels: There is a tiny infrarenal aortic aneurysm measuring 24 mm in diameter. Aortic calcification s are seen. Abdominal wall: Calcifications are noted in the right iliac is musculature, unchanged from prior exam . Bones: Degenerative changes in the visualized spine. Sclerotic healing changes are seen in the right rib. IMPRESSION: 1. No evidence of hydronephrosis or obstruction. Patient status post prostatectomy. There is a tiny focus of air in the bladder, correlation for recent instrumentation is recommended. 2. Innumerable hepatic and renal cysts. 3. Continued mesenteric stranding. ACT 112: Negative or not required by law. Electronically signed by: Segundo Vergara M.D. 09/09/2021 10:10 AM
[2021-09-09 11:01] LABS: Appearance Urine Clear (Clear); Bacteria Urine Automated 1+ (Negative); Bilirubin Urine Negative (Negative); Blood Urine Trace (Negative); Cast Urine Automated 0 /lpf (0-5); Color Urine Yellow; Epithelial Cell Urine Auto 0-5 /lpf (0-5); Glucose Urine UA Negative (Negative); Ketones Urine Negative (Negative); Leukocyte Esterase Urine 1+ (Negative); Nitrite Urine Negative (Negative); Protein Urine Negative (Negative); RBC Urine Automated 0-4 /hpf (0-4); Urobilinogen Urine Negative (Negative); pH Urine 6.5 (4.5-7.5)
--- NOTE | 2021-09-09 11:10 | History & Physical Report ---
Date of Service September 09, 2021 Assessment & Plan (1) Dizziness: Plan: DDX: CVA vs. BPPV vs. Hyponatremia - or combination of the above - this is not associated with hearing loss or change in hearing so doubt meiners disease with the hyponatremia as well - MRI with and without contrast to eval for mets/ischemia- noted old lacunar infarcts and small vessel disease - without other focal deficits, no visual field cuts, no visual skew, and without nystagmus - (+) dixHalpike maneuver with room spinning and nausea making BPPV likely- meclizine PRN (2) Acute hyponatremia: Plan: Unkown onset but likely occurring over last 2 weeks as he had normal NA level on 08/21 - Multiple etiologies with decrease solute intake, increased free water intake and continuing use of diuretics - goal NA correction would be 8mmol/24 hours (127) - Glucose mildly elevated at 120 - lipid panel in am - Serum OSMO 252 and Urine OSMO 293 - consistent with water intake > than solute intake - Provide 0.9% Saline at 115ml/hour - liberal salt diet - Free water restriction to 1.2L/day - Hold Lasix/spironolactone/Entresto - can likely restart Entresto in AM. - BMP q4 hours (3) Coronary artery disease: Plan: History of CABG x6 in 1983 with cath in 2014 had 2 BOB and cath in 2015 reported as significant disease and medically manage - He was on ASA and Plavix following the BOB and recently his Plavix was stopped - No anginal complaints at this time (4) Benign essential hypertension: Plan: Appears decently controlled with BP ranging from 120-150s - Continue Carvedilol - Hold Lasix, Spironalactone with his hyponatremia (5) Hypercholesterolemia: Plan: Continue his ezetimibe 10mg Continue his Atorvastatin 80mg (6) Cardiomyopathy, ischemic: Plan: ICM with HFrEF (mild 40-45%) - no an acute exacerbation stable as above - Hold entresto - likely be able to restart within next day or so (7) Urinary incontinence: Plan: Continue Tasulosin History of Present Illness Primary Care Provider: 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 Patient comes to the EMD today for complaints of dizziness ongoing for ~ 2 weeks. It starts when he sits up or stands ups or lies down. This is associated with room spinning and nausea with minimal vomiting. He also induces feeling cold sweats at that time. This apparently started after he received his MRI for his lumbar spine secondary to concerns of possible metastatic prostate cancer. This dizziness has caused him to lose his appetite as he has has not been eating much. This is not associated with any abdominal pain. In the EMD the patient had routine labs performed, CXR, head CT abd/pelvis CT and ECG. His sodium level was noted to be at 119. Patient also endorses that he is drinking 8-10 16oz bottle of water following re moval of his Barker catheter per instructions. He continues with his diuretics at home as well. His CT scan of his head was negative for acute process including sinuses and mastoids. CT scan of abdomen and pelvis without acute process. Will admit patient for what appears to be BPV with hyponatremia secondary to decrease solute intake and mild hypovolemic component. Will obtain MRI with and without contrast to evaluate for CVA/metastatic disease. He will be placed in PCU until NA level > 121. COVID test on admission is: Allergies Allergy/AdvReac Type Severity Reaction Status Date / Time meloxicam AdvReac Mild nausea Verified 09/09/21 10:07 Home Medications Medication Instructions Recorded Confirmed Type aspirin 81 mg tablet,delayed 81 mg PO HS 12/17/18 09/09/21 History release coQ10 (ubiquinol) 100 mg capsule 200 mg PO HS 12/17/18 09/09/21 History multivitamin 1 tab PO HS 12/17/18 09/09/21 History nitroglycerin 0.4 mg sublingual 0.4 mg SUBLINGUAL UD PRN #30 tab 05/22/20 09/09/21 Rx tablet (Nitrostat) ketoconazole 2 % shampoo 1 applic TOPICAL .COMPLEX #120 ml 10/24/20 09/09/21 Rx furosemide 20 mg tablet 20 mg PO DAILY PRN #30 tab 03/13/21 09/09/21 Rx carvedilol 25 mg tablet 25 mg PO BID #180 tab 05/15/21 09/09/21 Rx denosumab 60 mg/mL subcutaneous 60 mg SUBCUT .Q6M 06/05/21 09/09/21 History syringe (Prolia) atorvastatin 80 mg tablet 80 mg PO QAM #90 tab 07/10/21 09/09/21 Rx ezetimibe 10 mg tablet 10 mg PO QAM 07/28/21 09/09/21 History spironolactone 25 mg tablet 25 mg PO QAM 07/28/21 09/09/21 History (Aldactone) pantoprazole 20 mg tablet,delayed 20 mg PO QAM 08/20/21 09/09/21 History release tamsulosin 0.4 mg capsule 0.4 mg PO HS 08/20/21 09/09/21 History sacubitril 97 mg-valsartan 103 mg 1 tab PO BID #180 tab 08/25/21 09/09/21 Rx tablet (Entresto) citalopram 20 mg tablet 20 mg PO HS #90 tab 08/26/21 09/09/21 Rx Past Med/Surg History Medical History CAD (coronary artery disease) Cardiomyopathy, ischemic Depression GERD (gastroesophageal reflux disease) controlled Hiatal hernia History of adenocarcinoma of prostate History of basal cell carcinoma removed History of squamous cell carcinoma removed Hyperlipidemia Hypertension IVCD (intraventricular conduction defect) follows with Dr. Veronica Myocardial Infarction 1984: CABG 2015: stents Nephrolithiasis Neuropathy of both feet Osteoarthritis Osteoporosis Pulmonary embolism Post-op prostate surgery (1999) Sleep apnea CPAP Spinal stenosis Surgical History H/O cataract extraction bilat History of appendectomy History of colonoscopy History of coronary artery bypass graft x 6 (~1983) 1983 > follows with Dr. Veronica History of esophagogastroduodenoscopy (EGD) History of hernia repair History of lithotripsy (~2012) History of prostatectomy (~1999) hx of cancer> no radiation History of tonsillectomy and adenoidectomy History of tooth extraction Status post arterial stent 4 stents total 2005, 2014 Family History Mother , age 86 of heart issues Myocardial infarction Hypertension Father , age 88 of heart issues Myocardial infarction Prostate cancer Hypertension Brother Myocardial infarction Lung cancer Denies family history of Colon cancer Ovarian cancer Breast cancer Social History Smoking Status: Never smoker Tobacco Type: Cigarettes Age Started Using Tobacco: 18; Age Quit Using Tobacco: 27; packs per day: 0.5; Years Smoked: 9; Second Hand Exposure: No; Hx Alcohol Use: No Hx Substance Use: No Preferred Language: Japanese Communication Ability: Effective Visual Impairment: Limited Hearing Ability: Normal Manager Of International Required: No Beliefs That Will Affect Care: None marital status: Current Living Situation: Spouse current occupational status: retired 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) How many Children do You have: 1 Other Information That Helps Us Care for You: No Feels Safe at Home: Yes Safety Concerns: Feels Safe At This Time Childhood Exposure to Second-Hand Smoke: No caffeine: No during the past year weight has: remained stable Dental Care, Regularly: Yes Physical Activity Frequency: Does not Exercise Seatbelt Use: sometimes Sunscreen Use: No Assistive Devices: None Assistive Devices Comment: has cane/walker available Review of Systems Review of Systems: REVIEW OF SYSTEMS: Constitutional: (+) dizziness with room spinning, No fever, sweats or chills Eyes: No diplopia, no worsening or blurred vision ENT: normal hearing, no trouble swallowing Respiratory: No cough, sputum, dyspnea at rest or on exertion Cardiovascular: No chest pain, tightness or palpitations Abdomen: (+) nausea/vomiting, No pain, diarrhea or constipation Musculoskeletal: No joint pain, calf pain, swelling Neurologic: No weakness, numbness/tingling, or balance problems Psychiatric: No anxiety or depression Skin: No rash or itch Physical Exam Physical Exam: PHYSICAL EXAM: General: awake, alert, no apparent distress Head: Normocephalic, atraumatic ENT: PERRLA, EOMI, without nystagmus or visual skew, no visual field cuts, no pharyngeal exudate, mucous membranes moist Neuro: AAO x 3, speech clear and appropriate, strength intact bilaterally 5/5, sensation intact and equal all extremities and dermatomes, no pronator drift - Vertigiouness symptoms with lying patient flat, turning head rapidly to side and back to baseline- with nausea and room spinning- as above no nystagmus Chest: equal rise and fall of the chest, no accessory muscle use, no heaves or thrills, Clear to auscultation, on room air, Cardiac: Regular rate and rhythm, telemetry reviewed, skin warm dry, cap refill <3 seconds, peripheral pulses +2 no JVD, no murmur, no edema GI: NABS x 4 quadrants, soft, nontender to palpation, no rebound, guarding or tenderness : Spontaneously voiding, no pain, no CVA tenderness, Extremities: Normal inspection, no peripheral edema or erythema, calfs nontender to palpation Psych: Normal mood and affect Skin: no rash or erythema Results & Data Results & Data ([facility]) Vital Signs (Past 12 Hours) Vital Signs Temp Pulse Resp BP Pulse Ox 09/09/21 10:00 63 21 151/82 H 98 09/09/21 09:30 70 20 09/09/21 09:08 59 L 22 97 09/09/21 08:42 36.8 C 64 20 148/84 H 98 Laboratory Results Abnormal lab results 09/09/21 09/09/21 09/09/21 Range/Units 08:58 09:00 09:00 RBC 3.76 L (4.7-6.1) M/uL Hgb 12.3 L (14.0-18.0) g/dL Hct 34.3 L (42-52) % [place] # (Auto) 0.71 H (0.11-0.59) K/uL Immature Gran # (Auto) 0.03 H (0.00-0.02) K/uL Sodium 119 L* (136-145) mmol/L Chloride 87 L (98-107) mmol/L Glucose 112 H (70-99(Fasting)) mg/dl POC Glucose 120 H (70-99) mg/dl Globulin 2.4 L (2.5-4.0) gm/dl Diagnostic Findings Chest X-Ray 09/09/21 08:53 XR chest 1V portable CLINICAL HISTORY: dizzy TECHNIQUE: Single frontal radiograph of the chest was obtained. Comparison: Comparison is made to chest radiograph 12/23/2020 FINDINGS: Median sternotomy wires are unchanged. Calcified aortic knob is seen. Lungs are underinflated but clear. No evidence of pleural effusion or pneumothorax. IMPRESSION: No acute chest disease. ACT 112: Negative or not required by law. Electronically signed by: Segundo Vergara M.D. 09/09/2021 9:[address] 09/09/21 08:53 CT head/brain wo con CLINICAL HISTORY: dizzy Technique: Contiguous axial CT images of the head were acquired from the base of the skull to the vertex without intravenous contrast administration. Images were viewed in brain, subdural and bone windows. Automated dose lowering techniques and/or adjustment according to patient size were utilized for this exam. Comparison: Comparison is made to CT head 12/17/2018 Findings: Areas of decreased attenuation are present in the periventricular and subcortical white matter bilaterally consistent with small vessel ischemic disease. Generalized cerebral atrophy with commensurate enlargement of the ventricles, sulci, and cisterns is also present. There is no acute intracranial hemorrhage or evidence of acute territorial infarction. No shift of the midline structures, mass effect, or extra-axial abnormalities are shown. Atherosclerotic calcifications are present in the intracranial segments of the internal carotid arteries. Imaged portions of the paranasal sinuses and mastoid air cells are clear. The orbits appear normal. There are no acute fractures of the calvaria or scalp swelling. Impression: No acute intracranial hemorrhage, no evidence of acute territorial infarction or other acute intracranial disease process. ACT 112: Negative or not required by law. Electronically signed by: Segundo Vergara M.D. 09/09/2021 9:55 AM Abdomen/Pelvis CT 09/09/21 08:59 CT abd pelvis wo con CLINICAL HISTORY: urinary straining, eval for obstruction TECHNIQUE: Helical axial images of the abdomen and pelvis were obtained. Automated dose lowering techniques and/or adjustment according to patient size were utilized for this exam. This exam was performed without intravenous contrast. CT DOSE: 1349.63 mGy.cm COMPARISON: Comparison is made to CT abdomen pelvis 07/28/2021 FINDINGS: Lower chest: Bibasilar atelectasis versus scarring is seen. Postsurgical changes of cardiac bypass surgery noted. Partial visualization of gynecomastia. Liver: We will hypodensities are seen in the liver compatible with cysts. Additional subcentimeter hypodensities are too small to characterize. Gallbladder and biliary tree: Cholelithiasis is seen without evidence of cholecystitis. No intra- or extrahepatic biliary ductal dilation. Pancreas: Unremarkable, no focal lesions. Spleen: Splenule is incidentally noted. Adrenals: Unremarkable. Kidneys and ureters: Multiple cysts are seen. In addition, there are hyperdensities in the kidneys, similar in appearance to prior exam, image may represent proteinaceous or hemorrhagic cyst. Bladder: There is a tiny focus of air in the bladder, correlation with recent instrumentation is recommended. Reproductive organs: Patient is status post prostatectomy. Bowel: Diverticulosis is seen without evidence of diverticulitis. Lymph nodes Retroperitoneal: Unremarkable. Mesenteric: Subcentimeter lymph nodes are noted. Pelvic: Unremarkable. Peritoneum: Redemonstration of mesenteric stranding is seen. Vessels: There is a tiny infrarenal aortic aneurysm measuring 24 mm in diameter. Aortic calcifications are seen. Abdominal wall: Calcifications are noted in the right iliac is musculature, unchanged from prior exam. Bones: Degenerative changes in the visualized spine. Sclerotic healing changes are seen in the right rib. IMPRESSION: 1. No evidence of hydronephrosis or obstruction. Patient status post prostatectomy. There is a tiny focus of air in the bladder, correlation for recent instrumentation is recommended. 2. Innumerable hepatic and renal cysts. 3. Continued mesenteric stranding. ACT 112: Negative or not required by law. Electronically signed by: Segundo Vergara M.D. 09/09/2021 10:10 AM MRI OF THE BRAIN WITHOUT AND WITH IV CONTRAST CLINICAL HISTORY: dizziness, hx of cancer COMPARISON STUDY: Head CT September 09, 2021. Head CT December 17, 2018. TECHNIQUE: Utilizing a 1.5 Gena magnet and dedicated coil, multiplanar, multiecho imaging of the brain was performed pre and postcontrast administration. IV administration of 9.5 mL of Gadavist contrast was uneventful. Thin cut T1 post contrast imaging was performed. FINDINGS: There are no foci of restricted diffusion to suggest acute infarct. No acute intracranial hemorrhage, midline shift or mass effect is present. Ventricular system is unremarkable. Basal cisterns are patent. There are no extra-axial collections. Flow-voids for the major intracranial vessels are present. There is no intracranial mass or pathologic enhancement. White matter T2 hyperintense foci suggest small vessel disease. Old lacunar infarcts within left basal ganglia and centrum semiovale ovale are present. Calvarial signal is normal. No evidence for sinusitis. No mastoid fluid. No mass or abnormal enhancement is identified within the internal auditory canals. IMPRESSION: 1. No acute intracranial findings. 2. No evidence for metastatic disease. 3. White matter T2 hyperintense foci consistent with small vessel disease and several old lacunar infarcts. Medications Administered Home Medications aspirin 81 mg tablet,delayed release 81 mg PO HS 12/17/18 [History Confirmed 09/09/21] coQ10 (ubiquinol) 100 mg capsule 200 mg PO HS 12/17/18 [History Confirmed 09/09/21] multivitamin 1 tab PO HS 12/17/18 [History Confirmed 09/09/21] nitroglycerin 0.4 mg sublingual tablet (Nitrostat) 0.4 mg SUBLINGUAL UD PRN #30 tab 05/22/20 [Rx Confirmed 09/09/21] ketoconazole 2 % shampoo 1 applic TOPICAL .COMPLEX #120 ml 10/24/20 [Rx Confirmed 09/09/21] furosemide 20 mg tablet 20 mg PO DAILY PRN #30 tab 03/13/21 [Rx Confirmed 09/09/21] carvedilol 25 mg tablet 25 mg PO BID #180 tab 05/15/21 [Rx Confirmed 09/09/21] denosumab 60 mg/mL subcutaneous syringe (Prolia) 60 mg SUBCUT .Q6M 06/05/21 [History Confirmed 09/09/21] atorvastatin 80 mg tablet 80 mg PO QAM #90 tab 07/10/21 [Rx Confirmed 09/09/21] ezetimibe 10 mg tablet 10 mg PO QAM 07/28/21 [History Confirmed 09/09/21] spironolactone 25 mg tablet (Aldactone) 25 mg PO QAM 07/28/21 [History Confirmed 09/09/21] pantoprazole 20 mg tablet,delayed release 20 mg PO QAM 08/20/21 [History Confirmed 09/09/21] tamsulosin 0.4 mg capsule 0.4 mg PO HS 08/20/21 [History Confirmed 09/09/21] sacubitril 97 mg-valsartan 103 mg tablet (Entresto) 1 tab PO BID #180 tab 08/25/21 [Rx Confirmed 09/09/21] citalopram 20 mg tablet 20 mg PO HS #90 tab 08/26/21 [Rx Confirmed 09/09/21] Discontinued Medications Sodium Chloride (Nss) 500 mls @ 999 mls/hr IV .Q31M CHRIS Stop: 09/09/21 09:30 Last Infusion: 09/09/21 09:53 Dose: 0 mls/hr Documented by: [id number] Admin: 09/09/21 09:22 Dose: 999 mls/hr Documented by: [id number] Meclizine HCl (Meclizine Hcl 25 Mg Tab) 25 mg PO NOW STA Stop: 09/09/21 08:54 Last Admin: 09/09/21 09:22 Dose: 25 mg Documented by: [id number] ECG Additional Comments: Normal sinus rhythm Non-specific intra-ventricular conduction block Cannot rule out Anterior infarct , age undetermined T wave abnormality, consider inferior ischemia Abnormal ECG When compared with ECG of 21-APR-2017 19:03, Minimal criteria for Anterior infarct are now Present Code Status & VTE Plan Code Status CODE: FULL VTE: SCDs, Heparin 5000 units sub q q12 VTE Prophylaxis Plan VTE Prophylaxis will be ordered: Yes Supervising Physician Co-Signing Physician Notes I personally saw and examined the patient. I verified all villa points and agree with IMANI Lockwood with the following exceptions and/or additions: 86 year old male admission for dizziness - both light headedness but also occasional vertigo like sensation. Started after getting up from MRI. O/E HS1+2, no murmurs, Chest CTAB, abdo SNT, no focal neurological motor or sensory deficit, CN 2-> 12 intact, krys-hallpike not repeated but notably positive on PA exam above. A/P Dizziness and hyponatremia - MRI brain negative for CVA. Will correct hyponatremia and reassess dizziness after this. Meclizine PRN for vertigo-like sensation. Continue NSS overnight but if Na not increasing will switch to 3% saline. Agree with suspected increased free water intake (in addition lasix likely causing higher urine osm and Na). Continue to measure sodiums q4-6 hours. PG Care Time/CCT Total # of Minutes Spent Total Time Spent with Patient: Total time spent is greater than 50% in coordination of care (as documented) at patient's floor/unit and/or counseling patient: Coding Level of Care Code 57864 Initial Inpt Care Lvl 3 Diagnoses Dizziness R42 Acute hyponatremia E87.1 Coronary artery disease I25.810 Associated angina: without angina Coronary Disease-Associated Artery/Lesion type: bypass graft, autologous vein Benign essential hypertension I10 Hypercholesterolemia E78.00 Cardiomyopathy, ischemic I25.5 Urinary incontinence R32 (1) Coronary artery disease Associated angina: without angina Coronary Disease-Associated Artery/Lesion type: bypass graft, autologous vein Qualified Code(s): I25.810 - Atherosclerosis of coronary artery bypass graft(s) without angina pectoris
[2021-09-09] MEDS ORDERED: ACETAMINOPHEN 325 MG TAB PO PRN (11:36)
[2021-09-09] MEDS ORDERED: NITROGLYCERIN SL 0.4 MG/TAB TAB SL PRN (11:36)
[2021-09-09] MEDS ORDERED: ONDANSETRON INJ 2 MG/ML 2 ML VIAL IV PRN (11:36)
[2021-09-09] MEDS ORDERED: MECLIZINE 12.5 MG TAB PO PRN (11:36)
[2021-09-09] MEDS ORDERED: GADOBUTROL 65ML VIAL IV ONE (12:47)
--- NOTE | 2021-09-09 13:08 | Magnetic Resonance Report ---
MRI OF THE BRAIN WITHOUT AND WITH IV CONTRAST CLINICAL HISTORY: dizziness, hx of cancer COMPARISON STUDY: Head CT September 09, 2021. Head CT December 17, 2018. TECHNIQUE: Utilizing a 1.5 Gena magnet and dedicated coil, multiplanar, multiecho imaging of the br ain was performed pre and postcontrast administration. IV administration of 9.5 mL of Gadavist contr ast was uneventful. Thin cut T1 post contrast imaging was performed. FINDINGS: There are no foci of restricted diffusion to suggest acute infarct. No acute intracranial h emorrhage, midline shift or mass effect is present. Ventricular system is unremarkable. Basal cistern s are patent. There are no extra-axial collections. Flow-voids for the major intracranial vessels are present. There is no intracranial mass or pathologic enhancement. White matter T2 hyperintense foci suggest small vessel disease. Old lacunar infarcts within left basal ganglia and centrum semiovale ov jovita are present. Calvarial signal is normal. No evidence for sinusitis. No mastoid fluid. No mass or abnormal enhancement is identified within the internal auditory canals. IMPRESSION: 1. No acute intracranial findings. 2. No evidence for metastatic disease. 3. White matter T2 hyperintense foci consistent with small vessel disease and several old lacunar inf arcts. ACT 112: Negative or not required by law. Electronically signed by: Umang Smith M.D. 09/09/2021 1:07 PM
[2021-09-09] MEDS: SODIUM CHLORIDE 0.9% 1000ML 1,000 ML IV SCH (13:18)
--- NOTE | 2021-09-09 15:18 | Electrocardiogram Report ---
Test Reason : Blood Pressure : / mmHG Vent. Rate : 060 BPM Atrial Rate : 061 BPM P-R Int : 000 ms QRS Dur : 138 ms QT Int : 420 ms P-R-T Axes : 066 049 249 degrees QTc Int : 420 ms Normal sinus rhythm Non-specific intra-ventricular conduction block Possible Anterior infarct , age undetermined Diffuse Nonspecific ST and T wave abnormality Abnormal ECG When compared with ECG of 21-APR-2017 19:03, Criteria for Anterior infarct now present Confirmed by Kel Mackey ([id number]) on 09/09/2021 3:17:59 PM Referred By: REFERRED SELF Confirmed By:Kel Mackey
[2021-09-09 15:23] LABS: Potassium 4.2 mmol/L (3.5-5.1)
[2021-09-09 15:24] LABS: BUN Creatinine Ratio 14.8 (10-20); Calcium 8.8 mg/dl (8.5-10.1); Creatinine Clr Calc Pharmacy 56.2 ml/min; Est GFR (African American) 71.6 ml/min; Est GFR (Non-African American) 61.8 ml/min
[2021-09-09 18:50] LABS: BUN Creatinine Ratio 15.7 (10-20); Calcium 8.8 mg/dl (8.5-10.1); Creatinine Clr Calc Pharmacy 56.2 ml/min; Est GFR (African American) 71.6 ml/min; Est GFR (Non-African American) 61.8 ml/min; Potassium 4.2 mmol/L (3.5-5.1)
[2021-09-09] MEDS: CITALOPRAM 20 MG TAB PO SCH (21:15)
[2021-09-09] MEDS: TAMSULOSIN HCL 0.4 MG CAP PO SCH (21:15)
[2021-09-09] MEDS: ASPIRIN 81 MG ECTAB PO SCH (21:15)
[2021-09-09] MEDS: HEPARIN SOD 5,000 UNIT/0.5 ML VIAL SQ SCH (21:16)
[2021-09-09] MEDS: carvediloL 25 MG TAB PO SCH (21:22)
[2021-09-09] MEDS: MECLIZINE 12.5 MG TAB PO PRN (21:30)
[2021-09-10] MEDS: SODIUM CHLORIDE 0.9% 1000ML 1,000 ML IV SCH (00:36)
[2021-09-10 00:59] LABS: BUN Creatinine Ratio 15.1 (10-20); Calcium 8.6 mg/dl (8.5-10.1); Creatinine Clr Calc Pharmacy 48.2 ml/min; Est GFR (African American) 59.5 ml/min; Est GFR (Non-African American) 51.3 ml/min; Potassium 4.2 mmol/L (3.5-5.1)
[2021-09-10] MEDS ORDERED: Nursing to Pharmacy Communication SCH (01:15)
[2021-09-10 07:43] LABS: Basophils # (auto) 0.01 K/uL (0-0.2); Basophils % (auto) 0.2 %; Eosinophils # (auto) 0.08 K/uL (0-0.5); Eosinophils % (auto) 1.3 %; Hematocrit (blood only) 29.7 % (42-52); Hemoglobin 10.5 g/dL (14.0-18.0); Immature Granulocytes # (auto) 0.02 K/uL (0.00-0.02); Immature Granulocytes % (auto) 0.3 %; Lymphocytes # (auto) 1.03 K/uL (1.2-3.4); Lymphocytes % (auto) 17.1 %; Mean Corpuscular Hemoglobin 33.3 pg (25-34); Mean Corpuscular Hgb Conc 35.4 g/dL (32-36); Mean Corpuscular Volume 94.3 fL (80-100); Mean Platelet Volume 9.3 fL (7.4-10.4); Monocytes # (auto) 1.42 K/uL (0.11-0.59); Monocytes % (auto) 23.5 %; Neutrophils # (auto) 3.48 K/uL (1.4-6.5); Neutrophils % (auto) 57.6 %; Platelet Count 212 K/uL (130-400); RDW Coefficient of Variation 12.2 % (11.5-14.5); RDW Standard Deviation 41.6 fL (36.4-46.3); Red Blood Count 3.15 M/uL (4.7-6.1); White Blood Count 6.04 K/uL (4.8-10.8)
[2021-09-10 08:17] LABS: BUN Creatinine Ratio 16.4 (10-20); Calcium 8.5 mg/dl (8.5-10.1); Creatinine Clr Calc Pharmacy 55.1 ml/min; Est GFR (African American) 70.1 ml/min; Est GFR (Non-African American) 60.5 ml/min; Magnesium 1.3 mg/dl (1.7-2.4); Potassium 4.3 mmol/L (3.5-5.1)
[2021-09-10] MEDS: PANTOprazole 40 MG TAB PO SCH (09:02)
[2021-09-10] MEDS: MECLIZINE 12.5 MG TAB PO PRN (09:02)
[2021-09-10] MEDS: EZETIMIBE 10 MG TABLET PO SCH (09:02)
[2021-09-10] MEDS: ATORVASTATIN 40 MG TAB PO SCH (09:02)
[2021-09-10] MEDS: carvediloL 25 MG TAB PO SCH ×2 (09:03→20:18)
[2021-09-10] MEDS: HEPARIN SOD 5,000 UNIT/0.5 ML VIAL SQ SCH ×2 (09:03→20:24)
[2021-09-10] MEDS: MAGNESIUM SULFATE / D5W 1 GM/100 ML BAG IV SCH ×2 (09:44→11:44)
[2021-09-10] MEDS: SODIUM CHLORIDE 3 % 500 ML IV SCH (10:48)
--- NOTE | 2021-09-10 11:09 | Hospitalist Progress Note ---
Date of Service September 10, 2021 Assessment & Plan (1) Dizziness: Plan: DDX: CVA vs. BPPV vs. 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 and small vessel disease - without other focal deficits, no visual field cuts, no visual skew, and without nystagmus - (+) dixHalpike maneuver with room spinning and nausea making BPPV likely- meclizine PRN - will need to reassess following resolution of hyponatremia (2) Acute hyponatremia: Plan: Unkown onset but likely occurring over last 2 weeks as he had normal NA level on 08/21 - Multiple etiologies with decrease solute intake, increased free water intake and continuing use of diuretics - goal NA correction would be 8mmol/24 hours (127), given we are below this goal with NSS switch to 3% saline @ 15ml/hr, can discontinue once Na reaches 125. - Glucose mildly elevated at 120 - Serum OSMO 252 and Urine OSMO 293 - consistent with water intake > than solute intake - Suspect urine Na high from Lasix use - liberal salt diet - Free water restriction to 1L/day - Hold Lasix/spironolactone/Entresto - BMP q4 hours (3) Asymptomatic bacteriuria: Plan: Probable enterococcus growing on urine culture - will elect not to treat currently as patient having no signs or symptoms of UTI. 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 No further dizziness but also hasn't been out of bed. Discussed urine culture positive but patient (other than his chronic prostate symptoms) is having no acute urinary symptoms. Given recent instrumentation will repeat UA and culture. Updated his over the phone. Review of Systems Review of Systems: All systems reviewed & are unremarkable except as noted in Subjective Physical Exam Constitutional: WD/WN, vitals as above Eyes: PERRL, conjunctivae normal, anicteric sclerae Neck: trachea midline, no thyromegaly Respiratory: normal respiratory effort, lungs clear to auscultation Cardiovascular: RRR, no murmur, no edema Gastrointestinal (Abdomen): normal bowel sounds, soft, nontender, no hepatosplenomegaly Skin: no rashes, warm and dry Neurologic: moves all extremities and awake; not confused Psychiatric: A+Ox3, euthymic affect Genitourinary: no CVA tenderness Results & Data Results & Data ([facility]) Vital Signs (Past 12 Hours) Vital Signs Temp Pulse Resp BP Pulse Ox 09/10/21 08:00 36.7 C 56 L 20 110/58 L 96 09/10/21 04:08 36.6 C 56 L 17 116/63 96 09/09/21 23:25 36.6 C 61 20 141/69 H 95 PG Care Time/CCT Total # of Minutes Spent Total Time Spent with Patient: Total time spent is greater than 50% in coordination of care (as documented) at patient's floor/unit and/or counseling patient: Coding Level of Care Code 98889 Subseq Hosp Care Lvl 3 Diagnoses Dizziness R42 Acute hyponatremia E87.1 Coronary artery disease I25.810 Associated angina: without angina Coronary Disease-Associated Artery/Lesion type: bypass graft, autologous vein Benign essential hypertension I10 Hypercholesterolemia E78.00 Cardiomyopathy, ischemic I25.5 Urinary incontinence R32 Asymptomatic bacteriuria R82.71 (1) Coronary artery disease Associated angina: without angina Coronary Disease-Associated Artery/Lesion type: bypass graft, autologous vein Qualified Code(s): I25.810 - Atherosclerosis of coronary artery bypass graft(s) without angina pectoris
[2021-09-10 11:30] LABS: BUN Creatinine Ratio 17.8 (10-20); Calcium 8.6 mg/dl (8.5-10.1); Creatinine Clr Calc Pharmacy 56.7 ml/min; Est GFR (African American) 72.5 ml/min; Est GFR (Non-African American) 62.5 ml/min; Potassium 4.4 mmol/L (3.5-5.1)
[2021-09-10 16:16] LABS: BUN Creatinine Ratio 15.2 (10-20); Calcium 8.6 mg/dl (8.5-10.1); Creatinine Clr Calc Pharmacy 48.5 ml/min; Est GFR (Non-African American) 51.8 ml/min; Potassium 4.4 mmol/L (3.5-5.1)
[2021-09-10 20:00] LABS: BUN Creatinine Ratio 16.5 (10-20); Calcium 8.6 mg/dl (8.5-10.1); Creatinine Clr Calc Pharmacy 43.6 ml/min; Est GFR (African American) 52.8 ml/min; Est GFR (Non-African American) 45.6 ml/min; Potassium 4.8 mmol/L (3.5-5.1)
[2021-09-10] MEDS: CITALOPRAM 20 MG TAB PO SCH (20:18)
[2021-09-10] MEDS: TAMSULOSIN HCL 0.4 MG CAP PO SCH (20:23)
[2021-09-10] MEDS: ASPIRIN 81 MG ECTAB PO SCH (20:23)
[2021-09-10 21:45] LABS: Appearance Urine Clear (Clear); Bacteria Urine Automated Negative (Negative); Bilirubin Urine Negative (Negative); Blood Urine Negative (Negative); Cast Urine Automated 0 /lpf (0-5); Color Urine Yellow; Epithelial Cell Urine Auto 0-5 /lpf (0-5); Glucose Urine UA Negative (Negative); Ketones Urine Negative (Negative); Leukocyte Esterase Urine 1+ (Negative); Nitrite Urine Negative (Negative); Protein Urine Negative (Negative); RBC Urine Automated 0-4 /hpf (0-4); Specific Gravity Urine 1.011 (1.000-1.030); Urobilinogen Urine Negative (Negative)
[2021-09-10 23:43] LABS: BUN Creatinine Ratio 17.6 (10-20); Calcium 8.4 mg/dl (8.5-10.1); Creatinine Clr Calc Pharmacy 46.3 ml/min; Est GFR (African American) 56.7 ml/min; Potassium 4.6 mmol/L (3.5-5.1)
[2021-09-11 03:51] LABS: Basophils # (auto) 0.01 K/uL (0-0.2); Basophils % (auto) 0.2 %; Eosinophils # (auto) 0.12 K/uL (0-0.5); Eosinophils % (auto) 1.8 %; Hematocrit (blood only) 29.6 % (42-52); Hemoglobin 10.7 g/dL (14.0-18.0); Immature Granulocytes # (auto) 0.02 K/uL (0.00-0.02); Immature Granulocytes % (auto) 0.3 %; Lymphocytes % (auto) 18.5 %; Mean Corpuscular Hemoglobin 34.9 pg (25-34); Mean Corpuscular Hgb Conc 36.1 g/dL (32-36); Mean Corpuscular Volume 96.4 fL (80-100); Mean Platelet Volume 9.4 fL (7.4-10.4); Neutrophils # (auto) 3.85 K/uL (1.4-6.5); Neutrophils % (auto) 59.2 %; Platelet Count 208 K/uL (130-400); RDW Coefficient of Variation 12.4 % (11.5-14.5); RDW Standard Deviation 43.6 fL (36.4-46.3); Red Blood Count 3.07 M/uL (4.7-6.1)
[2021-09-11 04:05] LABS: BUN Creatinine Ratio 18.1 (10-20); Calcium 8.6 mg/dl (8.5-10.1); Creatinine Clr Calc Pharmacy 47.8 ml/min; Est GFR (African American) 58.9 ml/min; Est GFR (Non-African American) 50.8 ml/min; Magnesium 1.5 mg/dl (1.7-2.4); Potassium 4.5 mmol/L (3.5-5.1)
[2021-09-11] MEDS: MAGNESIUM SULFATE / D5W 1 GM/100 ML BAG IV SCH ×3 (08:00→11:45)
[2021-09-11] MEDS: SODIUM CHLORIDE 3 % 500 ML IV SCH (08:02)
[2021-09-11] MEDS: ATORVASTATIN 40 MG TAB PO SCH (08:08)
[2021-09-11] MEDS: EZETIMIBE 10 MG TABLET PO SCH (08:08)
[2021-09-11] MEDS: PANTOprazole 40 MG TAB PO SCH (08:08)
[2021-09-11] MEDS: HEPARIN SOD 5,000 UNIT/0.5 ML VIAL SQ SCH ×2 (08:09→20:17)
[2021-09-11] MEDS: carvediloL 25 MG TAB PO SCH ×2 (08:34→20:16)
[2021-09-11 08:35] LABS: Anion Gap 5 (3-11); BUN Creatinine Ratio 19.3 (10-20); Blood Urea Nitrogen 22 mg/dl (6-23); Calcium 8.7 mg/dl (8.5-10.1); Carbon Dioxide 24 mmol/L (21-32); Chloride 96 mmol/L (98-107); Creatinine Clr Calc Pharmacy 52.5 ml/min; Est GFR (African American) 67.1 ml/min; Est GFR (Non-African American) 57.9 ml/min; Glucose 82 mg/dl (70-99(Fasting)); Sodium 125 mmol/L (136-145)
--- NOTE | 2021-09-11 12:02 | Hospitalist Progress Note ---
Date of Service September 11, 2021 Assessment & Plan (1) Acute hyponatremia: Plan: Unkown onset but likely occurring over last 2 weeks as he had normal NA level on 08/21 of 132. - Multiple etiologies with decrease solute intake, increased free water intake, and continuing use of diuretics - goal NA correction would be 8mmol/24 hours (127), given we are below this goal with NSS switch to 3% saline @ 15ml/hr, can discontinue once Na reaches 125. - Serum OSMO 252 and Urine OSMO 293 - consistent with water intake > than solute intake - Free water restriction to 1 L/day - Hold Lasix/spironolactone/Entresto - BMP q4 hours while on hypertonic saline (2) Dizziness: Plan: DDX: CVA vs. BPPV vs. Hyponatremia - or combination of the above. 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 (4) Coronary artery disease: Plan: History of CABG x6 in 1984 with cath in 2014 had 2 BOB and cath in 2016 reported as significant disease and medically manage. - He was on ASA and Plavix following the BOB and recently his Plavix was stopped - No anginal complaints at this time (5) Benign essential hypertension: Plan: Appears decently controlled with BP ranging from 120-150s - Continue carvedilol - Hold Lasix, spironolactone with his hyponatremia (6) Hypercholesterolemia: Plan: Continue his ezetimibe 10mg Continue his Atorvastatin 80mg (7) Cardiomyopathy, ischemic: Plan: ICM with HFrEF (mild 40-45%) - no an acute exacerbation stable as above - Hold Entresto (8) Urinary incontinence: Plan: Continue Tasulosin Plan: VTE Prophylaxis - heparin 5000 units SQ BID Diet - T2DM, fluid restrict 1L Admission and Anticipated Discharge Date Admission Date: September 09, 2021 Subjective Feels fairly well today. Reports no fevers/chills, chest pain, shortness of breath, abdominal pain, nausea, or vomiting. Physical Exam Constitutional: WD/WN, vitals as above Eyes: EOM intact bilaterally; no conjunctival abnormality ENMT: external ear and nose normal, oropharynx normal Neck: trachea midline, no thyromegaly normal visual inspection Respiratory: normal respiratory effort, lungs clear to auscultation no respiratory distress Cardiovascular: RRR, no murmur, no edema Gastrointestinal (Abdomen): Inspection/Auscultation: abdomen normal to inspection; abdomen not distended Musculoskeletal: no cyanosis or clubbing, extremities motor strength 5/5 Skin: no rashes, warm and dry Neurologic: moves all extremities and awake Psychiatric: Orientation: alert, oriented to person and cooperative Results & Data Results & Data ([facility]) Vital Signs (Past 12 Hours) Vital Signs Temp Pulse Pulse Resp BP Pulse Ox 09/11/21 11:16 36.9 C 55 L 18 99/44 L 96 09/11/21 08:33 66 102/66 09/11/21 07:34 36.7 C 56 L 19 120/64 95 09/11/21 07:10 58 L 09/11/21 04:03 36.6 C 55 L 18 104/55 L 95 PG Care Time/CCT Total # of Minutes Spent Total Time Spent with Patient: Total time spent is greater than 50% in coordination of care (as documented) at patient's floor/unit and/or counseling patient: Coding Level of Care Code 78645 Subseq Hosp Care Lvl 3 Diagnoses Dizziness R42 Acute hyponatremia E87.1 Asymptomatic bacteriuria R82.71 Coronary artery disease I25.810 Coronary Disease-Associated Artery/Lesion type: bypass graft, autologous vein Associated angina: without angina Benign essential hypertension I10 Hypercholesterolemia E78.00 Cardiomyopathy, ischemic I25.5 Urinary incontinence R32 (1) Coronary artery disease Coronary Disease-Associated Artery/Lesion type: bypass graft, autologous vein Associated angina: without angina Qualified Code(s): I25.810 - Atherosclerosis of coronary artery bypass graft(s) without angina pectoris
[2021-09-11 12:53] LABS: BUN Creatinine Ratio 18.3 (10-20); Calcium 8.9 mg/dl (8.5-10.1); Creatinine Clr Calc Pharmacy 45.7 ml/min; Est GFR (African American) 56.7 ml/min; Potassium 4.6 mmol/L (3.5-5.1)
[2021-09-11 18:17] LABS: Calcium 8.8 mg/dl (8.5-10.1); Est GFR (African American) 52.8 ml/min; Est GFR (Non-African American) 45.6 ml/min; Potassium 4.6 mmol/L (3.5-5.1)
[2021-09-11] MEDS: TAMSULOSIN HCL 0.4 MG CAP PO SCH (20:16)
[2021-09-11] MEDS: ASPIRIN 81 MG ECTAB PO SCH (20:16)
[2021-09-12 01:47] LABS: BUN Creatinine Ratio 19.6 (10-20); Calcium 8.4 mg/dl (8.5-10.1); Creatinine Clr Calc Pharmacy 41.8 ml/min; Potassium 4.7 mmol/L (3.5-5.1)
[2021-09-12 06:40] LABS: Hematocrit (blood only) 30.8 % (42-52); Hemoglobin 10.5 g/dL (14.0-18.0); Mean Corpuscular Hemoglobin 32.8 pg (25-34); Mean Corpuscular Hgb Conc 34.1 g/dL (32-36); Mean Corpuscular Volume 96.3 fL (80-100); Mean Platelet Volume 9.3 fL (7.4-10.4); Platelet Count 219 K/uL (130-400); RDW Coefficient of Variation 12.8 % (11.5-14.5); RDW Standard Deviation 44.9 fL (36.4-46.3)
[2021-09-12 07:10] LABS: BUN Creatinine Ratio 22.1 (10-20); Calcium 8.6 mg/dl (8.5-10.1); Creatinine Clr Calc Pharmacy 49.3 ml/min; Est GFR (African American) 61.8 ml/min; Est GFR (Non-African American) 53.4 ml/min; Potassium 4.6 mmol/L (3.5-5.1)
[2021-09-12] MEDS: HEPARIN SOD 5,000 UNIT/0.5 ML VIAL SQ SCH (08:16)
[2021-09-12] MEDS: carvediloL 25 MG TAB PO SCH (08:16)
[2021-09-12] MEDS: ATORVASTATIN 40 MG TAB PO SCH (08:16)
[2021-09-12] MEDS: PANTOprazole 40 MG TAB PO SCH (08:17)
[2021-09-12] MEDS: EZETIMIBE 10 MG TABLET PO SCH (08:17)
[2021-09-12] MEDS ORDERED: FUROSEMIDE 20 MG TAB PO PRN (09:31)
[2021-09-12] MEDS ORDERED: SPIRONOLACTONE 25 MG TAB PO SCH (09:45)
[2021-09-12 14:55] LABS: BUN Creatinine Ratio 20.3 (10-20); Calcium 8.8 mg/dl (8.5-10.1); Creatinine Clr Calc Pharmacy 46.9 ml/min; Est GFR (African American) 58.3 ml/min; Est GFR (Non-African American) 50.3 ml/min
--- NOTE | 2021-09-12 16:17 | Discharge Summary ---
Date of Service September 12, 2021 Admission HPI Per Admitting Provider 86 YOM with medical history of: ICM, CAD with Bypass 1983 and AK in 2015, IVCD, HTN, HLD, HFrEF, Urinary retention (barker removed last ~ 1.5 weeks ago), prostate cancer- with prostatectomy, lower back pain. Patient comes to the EMD today for complaints of dizziness ongoing for ~ 2 weeks. It starts when he sits up or stands ups or lies down. This is associated with room spinning and nausea with minimal vomiting. He also induces feeling cold sweats at that time. This apparently started after he received his MRI for his lumbar spine secondary to concerns of possible metastatic prostate cancer. This dizziness has caused him to lose his appetite as he has has not been eating much. This is not associated with any abdominal pain. In the EMD the patient had routine labs performed, CXR, head CT abd/pelvis CT and ECG. His sodium level was noted to be at 119. Patient also endorses that he is drinking 8-10 16oz bottle of water following removal of his Barker catheter per instructions. He continues with his diuretics at home as well. His CT scan of his head was negative for acute process including sinuses and mastoids. CT scan of abdomen and pelvis without acute process. Will admit patient for what appears to be BPV with hyponatremia secondary to decrease solute intake and mild hypovolemic component. Will obtain MRI with and without contrast to evaluate for CVA/metastatic disease. He will be placed in PCU until NA level > 121. COVID test on admission is: Principal Diagnosis Hyponatremia Discharge Exam PHYSICAL EXAM: General: awake, alert, no apparent distress Head: Normocephalic, atraumatic ENT: PERRLA, EOMI, without nystagmus or visual skew, no visual field cuts, no pharyngeal exudate, mucous membranes moist Neuro: AAO x 3, speech clear and appropriate, strength intact bilaterally 5/5, sensation intact and equal all extremities and dermatomes, no pronator drift - Vertigiouness symptoms with lying patient flat, turning head rapidly to side and back to baseline- with nausea and room spinning- as above no nystagmus Chest: equal rise and fall of the chest, no accessory muscle use, no heaves or thrills, Clear to auscultation, on room air, Cardiac: Regular rate and rhythm, telemetry reviewed, skin warm dry, cap refill <3 seconds, peripheral pulses +2 no JVD, no murmur, no edema GI: NABS x 4 quadrants, soft, nontender to palpation, no rebound, guarding or tenderness : Spontaneously voiding, no pain, no CVA tenderness, Extremities: Normal inspection, no peripheral edema or erythema, calfs nontender to palpation Psych: Normal mood and affect Skin: no rash or erythema Constitutional WD/WN, vitals as above Eyes PERRL, conjunctivae normal, anicteric sclerae EOM intact bilaterally; no conjunctival abnormality ENMT external ear and nose normal, oropharynx normal Neck trachea midline, no thyromegaly normal visual inspection Respiratory normal respiratory effort, lungs clear to auscultation no respiratory distress Cardiovascular RRR, no murmur, no edema Gastrointestinal (Abdomen) normal bowel sounds, soft, nontender, no hepatosplenomegaly Inspection/Auscultation: abdomen normal to inspection; abdomen not distended Musculoskeletal no cyanosis or clubbing, extremities motor strength 5/5 Skin no rashes, warm and dry Neurologic moves all extremities and awake; not confused Psychiatric A+Ox3, euthymic affect Orientation: alert, oriented to person and cooperative Genitourinary no CVA tenderness Discharge Data Allergies Allergy/AdvReac Type Severity Reaction Status Date / Time meloxicam AdvReac Mild nausea Verified 09/09/21 10:07 Consultations 09/09/21 10:23 ED Decision to Admit Stat Ordered Studies 09/09/21 08:53 CT head/brain wo con Stat 09/09/21 08:59 CT abd pelvis wo con Stat 09/09/21 10:40 MR brain wo/w con Stat Hospital Course (1) Acute hyponatremia: Unkown onset but likely occurring over last 2 weeks as he had normal NA level on 08/21 of 132. - Multiple etiologies with decrease solute intake, increased free water intake, and continuing use of diuretics possible SIADH secondary to SSRI Lasix was discontinued, citalopram was discontinued Current sodium is 129 Patient was advised to follow-up with underwriting specialist in 1 week to recheck his sodium level also to inform him that Lasix was discontinued. I have left a message for his cardiology awaiting pain to call me back (2) Dizziness: DDX: CVA vs. BPPV vs. Hyponatremia - or combination of the above. 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 (4) Coronary artery disease: History of CABG x6 in 1983 with cath in 2014 had 2 BOB and cath in 2016 reported as significant disease and medically manage. - He was on ASA and Plavix following the BOB and recently his Plavix was stopped - No anginal complaints at this time (5) Benign essential hypertension: Appears decently controlled with BP ranging from 120-150s - Continue carvedilol -Spironolactone was held during this admission, was resumed. Discharged Patient was taking Lasix prior to admission 20 mg daily that was discontinued upon discharge, Entresto was discontinued upon admission was resumed upon discharge (6) Hypercholesterolemia: Continue his ezetimibe 10mg Continue his Atorvastatin 80mg (7) Cardiomyopathy, ischemic: ICM with HFrEF (mild 40-45%) - no an acute exacerbation stable as above - Hold Entresto (8) Urinary incontinence: Continue Tasulosin VTE Prophylaxis - heparin 5000 units SQ BID Diet - T2DM, fluid restrict 1L Total Time Total Time Spent Total Time Spent (In Minutes): 45 Discharge Plan Discharge Items Patient Disposition: Hospice - Home Reason For Visit: HYPONATREMIA,DIZZINESS Discharge Diagnosis: hyponatremia Condition on Discharge: Fair Health Concerns: Please check your Sodium level with primary doctor in one week. Please let your primary care doctor Knows that we stopped medication that you take for depression. Please let your underwriting specialist knows that we stopped Lasix Activity: Resume your previous activity Lifting: Gradually increase as tolerated Bathing: No limitations Sexual Activity: When tolerated Exercise/Sports: Gradually increase as tolerated Driving/Machine Use: No limitations Weightbearing: Full weightbearing Non-emergency contact: Primary Care Provider Call non-emergency contact if: you have any medication questions Follow-up/Referrals: Kel Mackey MD [Physician] - (1 week) Raulito Veronica MD [Physician] - (Lasix has stopped because of hyponatremia , not sure hyponatremia was because Lasix or SSRI ) Jorge Owens III, IMANI [Primary Care Provider] - (1-2 weeks) Diet: Heart Healthy Addtl Attending Provider Instructions: Please follow with your underwriting specialist as you instructed Pending Studies at Discharge: Yes Studies:: Sodium level in one chyna valencia Stand-Alone Forms: My [facility] Medications and DC Order Prescriptions: Continued atorvastatin 80 mg tablet 80 mg PO QAM Qty: 90 RF: 3 Entresto 97-103 mg tablet 1 tab PO BID Qty: 180 RF: 3 nitroglycerin [Nitrostat] 0.4 mg tablet, sublingual 0.4 mg sublingual UD PRN (Reason: chest pain) Qty: 30 RF: 2 ketoconazole 2 % shampoo 1 applic topical .COMPLEX Qty: 120 RF: 2 carvedilol 25 mg tablet 25 mg PO BID Qty: 180 RF: 3 multivitamin Tablet 1 tab PO HS RF: 0 aspirin 81 mg Tablet,Delayed Release (Dr/Ec) 81 mg PO HS RF: 0 coQ10 (ubiquinol) 100 mg Capsule 200 mg PO HS RF: 0 Prolia 60 mg/mL syringe 60 mg SUBCUT .Q6M RF: 0 spironolactone [Aldactone] 25 mg tablet 25 mg PO QAM RF: 0 ezetimibe 10 mg tablet 10 mg PO QAM RF: 0 pantoprazole 20 mg tablet,delayed release (DR/EC) 20 mg PO QAM RF: 0 tamsulosin 0.4 mg capsule 0.4 mg PO HS RF: 0 Discontinued citalopram 20 mg tablet 20 mg PO HS Qty: 90 RF: 3 furosemide 20 mg tablet 20 mg PO DAILY PRN (Reason: edema, weight gain, SOB) Qty: 30 RF: 11 Discharge Orders: Discharge Order (Routine); Ordered 09/12/21 Ordered By: Pablo Bell/Other Patient Handouts: Hyponatremia Dc Admission Data Admit Date/Time: 09/09/21 10:48 Attending Provider: Pablo Craig Admit Provider: Rj Don Primary Care Provider: Jorge Owens III Other Providers: Jorje Botello Other Interventions: Discharge Summary Assessment (RN) Last Done: 09/12/21 15:48 Coding Level of Care Code D/C DAY MANAGEMENT >30 MINS Diagnoses Acute hyponatremia E87.1 Dizziness R42 Asymptomatic bacteriuria R82.71 Coronary artery disease I25.810 Coronary Disease-Associated Artery/Lesion type: bypass graft, autologous vein Associated angina: without angina Benign essential hypertension I10 Hypercholesterolemia E78.00 Cardiomyopathy, ischemic I25.5 Urinary incontinence R32
[2021-09-12] MEDS ORDERED: VALSARTAN/SACUBITRIL 103/97MG TAB PO SCH (21:00)
== END 2021-09-12 17:32 | disposition hospice, home (50) | DRG 641 ==
LOC: ED 08:38 → EDINP 10:48 → SUATTDRO 10:48 → EDINP 11:30 → 2E 16:53

== ENCOUNTER 2021-11-28 08:44 | Observation (INO) ==
--- NOTE | 2021-11-28 09:09 | Emergency Department Note ---
History of Present Illness General Chief complaint: Abdominal Pain Stated complaint: ABDOMINAL PAIN Time Seen by Provider: 11/28/21 08:52 History of Present Illness Maximum Pain Intensity: 3 86-year-old male presents to the ED with a chief complaint of stomach pain. The patient states that he has had chronic bladder incontinence since having some polyps removed from his bladder several months ago. He states that he is unable to urinate normally. He states that his penis is continuously dripping urine into a diaper. He saturates this about every 4 hours or so. The patient states that overnight he developed some pain in the left lower quadrant and left flank that felt like a kidney stone. He states that he saw Dr. Eaton last week and was told he needs to follow-up with a box sealing machine catcher. He denies having any pain at the moment but feels that his bladder is not emptying. No nausea or vomiting. No fevers. Home Medications Medication Instructions Recorded Confirmed Type aspirin 81 mg tablet,delayed 81 mg PO HS 12/17/18 11/28/21 History release coQ10 (ubiquinol) 100 mg capsule 200 mg PO HS 12/17/18 11/28/21 History multivitamin 1 tab PO HS 12/17/18 11/28/21 History nitroglycerin 0.4 mg sublingual 0.4 mg sublingual UD PRN chest 05/22/20 11/28/21 Rx tablet (Nitrostat) pain #30 tabs denosumab 60 mg/mL subcutaneous 60 mg subcut .Q6M 06/05/21 11/28/21 History syringe (Prolia) atorvastatin 80 mg tablet 80 mg PO QAM #90 tabs 07/10/21 11/28/21 Rx ezetimibe 10 mg tablet 10 mg PO QAM 07/28/21 11/28/21 History pantoprazole 20 mg tablet,delayed 20 mg PO QAM 08/20/21 11/28/21 History release carvedilol 12.5 mg tablet 12.5 mg PO BID #90 tabs 09/19/21 11/28/21 Rx tamsulosin 0.4 mg capsule 0.4 mg PO HS #30 caps 11/05/21 11/28/21 Rx levomefolate Ca 3 mg-B6 35 1 cap PO BID #60 caps 11/19/21 11/28/21 Rx mg-meB12 2 mg-algal oil 90.314 mg capsule (Metanx (algal oil)) levomefolate calcium 1 tab PO 11/20/21 11/20/21 History vibegron 75 mg tablet (Gemtesa) 75 mg PO DAILY 11/20/21 11/28/21 History spironolactone 25 mg tablet 25 mg PO QAM #90 tabs 11/26/21 11/28/21 Rx (Aldactone) ketoconazole 2 % shampoo 1 applic topical WK 11/28/21 11/28/21 History sacubitril 97 mg-valsartan 103 mg 1 tab PO BID 11/28/21 11/28/21 History tablet (Entresto) Allergies Allergy/AdvReac Type Severity Reaction Status Date / Time meloxicam AdvReac Mild nausea Verified 11/20/21 14:18 Past Med/Surg History Medical History CAD (coronary artery disease) Cardiomyopathy, ischemic Depression GERD (gastroesophageal reflux disease) controlled Hiatal hernia History of adenocarcinoma of prostate History of basal cell carcinoma removed History of squamous cell carcinoma removed Hyperlipidemia Hypertension IVCD (intraventricular conduction defect) follows with Dr. Veronica Myocardial Infarction 1984: CABG 2015: stents Nephrolithiasis Neuropathy of both feet Osteoarthritis Osteoporosis Pulmonary embolism Post-op prostate surgery (1999) Sleep apnea CPAP Spinal stenosis Surgical History H/O cataract extraction bilat History of appendectomy History of colonoscopy History of coronary artery bypass graft x 6 (~1983) 1983 > follows with Dr. Veronica History of esophagogastroduodenoscopy (EGD) History of hernia repair History of lithotripsy (~2012) History of prostatectomy (~1999) hx of cancer> no radiation History of tonsillectomy and adenoidectomy History of tooth extraction Status post arterial stent 4 stents total 2005, 2014 Family History Mother , age 86 of heart issues Myocardial infarction Hypertension Father , age 88 of heart issues Myocardial infarction Prostate cancer Hypertension Brother Myocardial infarction Lung cancer Denies family history of Colon cancer Ovarian cancer Breast cancer Social History Smoking Status: Former smoker Tobacco Type: Cigarettes Age Started Using Tobacco: 18; Age Quit Using Tobacco: 27; packs per day: 0.5; Years Smoked: 9; Second Hand Exposure: No; Hx Alcohol Use: No Hx Substance Use: No Preferred Language: Montenegrin Communication Ability: Effective Visual Impairment: Limited Hearing Ability: Normal 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 Beliefs That Will Affect Care: None marital status: Current Living Situation: Spouse current occupational status: retired 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) How many Children do You have: 1 Feels Safe at Home: Yes Childhood Exposure to Second-Hand Smoke: No caffeine: No during the past year weight has: remained stable Dental Care, Regularly: Yes Physical Activity Frequency: Does not Exercise Seatbelt Use: sometimes Sunscreen Use: No Assistive Devices: None Review of Systems A total of 10 systems reviewed and were otherwise negative Physical Exam Vital Signs Vital Signs - 24 hr 11/28/21 08:47 11/28/21 10:30 11/28/21 10:34 Temperature 36.3 C L Temperature Source Temporal Artery Scan Pulse Rate 84 72 Pulse Rate [Finger] 80 Pulse Rhythm [Finger] Regular Pulse Strength [Finger] Normal Respiratory Rate 20 18 18 Respiratory Effort / Characteristics Non-Labored Non-Labored Spontaneous Respiratory Depth Normal Normal Respiratory Pattern Regular Blood Pressure 134/85 Blood Pressure [Right Arm] 122/65 Blood Pressure Mean 101 Blood Pressure Mean [Right Arm] 84 Blood Pressure Position [Right Arm] Lying Pulse Oximetry 97 98 96 Oxygen Delivery Method Room Air Room Air Room Air Sepsis Recent Fever Within 48 Hours No Sepsis New/Unexplained Change in Mental Status N/A Sepsis Action Taken by Nursing No Action Required CONSTITUTIONAL/VITAL SIGNS: Reviewed / noted above. GENERAL: Non-toxic in appearance. INTEGUMENTARY: Warm, dry, and [place]. HEAD: Normocephalic. EYES: without scleral icterus or trauma. ENT/OROPHARYNX: clear and moist. LYMPHADENOPATHY/NECK: Is supple without lymphadenopathy or meningismus. RESPIRATORY: Clear to auscultation bilaterally. No increased work of breathing. CARDIOVASCULAR: Regular rate and rhythm. GI/ABDOMEN: Soft and tender over the bladder. Bladder appears to be distended. Bladder scan shows greater than 1 L. EXTREMITIES: Warm and well perfused. BACK: No CVA tenderness. NEUROLOGICAL: Intact without focal deficits. PSYCHIATRIC: normal affect. MUSCULOSKELETAL: Normally developed with good muscle tone. TRIAGE NURSING DOCUMENTATION REVIEWED. Medical Decision Making Differential Diagnosis Differential considered: pancreatitis, hepatitis, acute cholecystitis, AAA, UTI, pyelonephritis, kidney stones, appendicitis, diverticulitis, shingles, bowel obstruction, mesenteric ischemia, intussusception,hernia, testicular torsion, urinary retention. Medical Records Attestation: I reviewed the patient's medical records. Home Medications Current Medication List: was personally reviewed by me Laboratory Data Attestation: I reviewed the patient's lab results. Result diagrams: 11/28/21 09:12 11/28/21 09:12 Lab Results 11/28/21 11/28/21 Range/Units 09:12 09:12 WBC 8.03 (4.8-10.8) K/ul RBC 3.53 L (4.63-6.08) M/uL Hgb 11.4 L (14.0-18.0) g/dl Hct 35.0 L (40.1-51.0) % MCV 99.2 (80.0-100.0) fL MCH 32.3 (25.0-34.0) pg MCHC 32.6 (32.0-36.0) g/dL RDW Std Deviation 46.9 H (36.4-46.3) fL RDW Coeff of Pito 13.1 (11.5-14.5) % Plt Count 235 (130-400) K/uL MPV 10.5 (9.4-12.4) fL Immature Gran % (Auto) 0.5 % Neut % (Auto) 74.0 % Lymph % (Auto) 10.6 % [place] % (Auto) 13.3 % Eos % (Auto) 1.2 % Baso % (Auto) 0.4 % Neut # (Auto) 5.94 (1.4-6.5) K/uL Lymph # (Auto) 0.85 L (1.2-3.4) K/uL [place] # (Auto) 1.07 H (0.24-0.82) K/uL Eos # (Auto) 0.10 (0-0.50) K/uL Baso # (Auto) 0.03 (0-0.2) K/uL Immature Gran # (Auto) 0.04 H (0.00-0.02) K/uL Sodium 135 L (136-145) mmol/L Potassium 4.5 (3.5-5.1) mmol/L Chloride 103 (98-107) mmol/L Carbon Dioxide 24 (21-32) mmol/L Anion Gap 8 (3-11) BUN 40 H (6-23) mg/dl Creatinine 2.17 H (0.6-1.4) mg/dl Est Cr Clr Drug Dosing 27.7 ml/min Est GFR ( Amer) 30.8 ml/min Est GFR (Non-Af Amer) 26.6 ml/min BUN/Creatinine Ratio 18.4 (10-20) Glucose 116 H (70-99(Fasting)) mg/dl Calcium 9.6 (8.5-10.1) mg/dl Total Bilirubin 0.8 (0.2-1.0) mg/dl AST 16 (13-39) U/L ALT 15 (7-52) U/L Alkaline Phosphatase 64 (34-104) U/L Total Protein 6.7 (6.0-8.3) gm/dl Albumin 4.0 (3.4-5.0) gm/dl Globulin 2.7 (2.5-4.0) gm/dl Albumin/Globulin Ratio 1.5 (0.9-2) Lipase 38 (11-82) U/L Imaging Data Radiologist's Impression: Abdomen/Pelvis CT 11/28/21 09:03 CT SCAN OF THE ABDOMEN AND PELVIS WITHOUT IV CONTRAST CLINICAL HISTORY: Left-sided abdominal pain. Urinary retention. COMPARISON STUDY: Abdominal CT dated 09/09/2021. TECHNIQUE: CT scan of the abdomen and pelvis is performed from the lung bases to the proximal femora. Images are reviewed in the axial, sagittal, and coronal planes. IV contrast was not administered for this examination. A dose lowering technique was utilized adhering to the principles of ALARA. The examination is degraded by motion artifact. CT DOSE: 483.31 mGy.cm FINDINGS: Lung bases: The patient is status post midline sternotomy. The heart is enlarged and without pericardial effusion. The coronary arteries are densely calcified. Gynecomastia is noted. There is a small hiatal hernia. Emphysematous change is suggested at the lung bases. There is bibasilar scarring/atelectasis. Scattered calcified granulomas are observed. There is no airspace consolidation typical for pneumonia or pleural effusion. Liver: The unenhanced liver is normal in size, contour, and attenuation. There is no intrahepatic biliary ductal dilatation. There are scattered calcified hepatic granulomas. Hepatic cysts measure up to 2.6 cm. Additional subcentimeter hepatic hypodensities also likely represent cysts but are too small for definitive characterization. Gallbladder: There are calcified gallstones with no CT evidence of acute cholecystitis. Spleen: Normal in size and attenuation. Pancreas: The unenhanced pancreas is moderately atrophic and grossly unremarkable. Adrenal glands: Unremarkable. Kidneys: The unenhanced kidneys demonstrate mild cortical atrophy. There is moderate bilateral hydroureteronephrosis. The ureters are dilated to the level of the distended bladder with no obstructing calculus seen. There are least 2 punctate nonobstructing right renal calculi. Tiny nonobstructing left renal calculi measure up to 4 mm. Simple and complex bilateral renal cysts measure up to 3.3 cm. These are similar to previous. A circumaortic left renal vein is incidentally noted. Abdominal vasculature: There is advanced atherosclerotic calcification and mild ectasia of the abdominal aorta. Bowel: There is mild colonic diverticulosis without CT evidence of acute div erticulitis. No bowel obstruction is seen. There is moderate colonic fecal retention. The appendix is not identified and reported surgically absent. Peritoneum: There is no intraperitoneal free air or abdominal ascites. There is a small fat-containing umbilical hernia. Lymphadenopathy: None. Pelvic viscera: The bladder is markedly distended. No significant bladder wall thickening is identified A surgical clip is again seen adjacent to the base of the bladder. The prostate gland is diminutive and heterogeneous. Findings suggest previous left inguinal herniorrhaphy. Skeletal structures: The skeletal structures are osteopenic there is moderate lumbosacral spondylosis.. No lytic or blastic lesions are seen. IMPRESSION: 1. Marked bladder distention suggests bladder outlet obstruction. 2. There is moderate bilateral hydroureteronephrosis, likely related to the marked bladder distention. 3. Bilateral nephrolithiasis. No ureteral stone is seen. 4. Cholelithiasis. 5. Cardiomegaly and suspect emphysema. 6. Additional findings as above. ACT 112: Negative or not required by law. Electronically signed by: James Gee M.D. 11/28/2021 10:32 AM MDM Narrative 86-year-old male presents to the ED with a chief complaint of abdominal discomfort. He reports that he is unable to urinate normally. He states that only small amounts of drops come out when he attempts to urinate. He states that he has a continuous flow of frequent drops of urine coming out saturating a depends every 4 hours or so. Exam, the patient has a significantly distended bladder with a bladder scan showing greater than 1 L of urine. The patient's BUN is 40 and the creatinine is 2.17. This is up from 1.3 at baseline. CBC and chemistry panel was otherwise unremarkable. The patient's CT scan shows significant bladder distention with moderate bilateral hydroureteronephrosis likely related to the bladder outlet obstruction. Nursing staff here attempted to place a Thomas catheter including coud catheter and were unable to place catheter. I spoke with urology who will see the patient for catheter placement in the ED. I also spoke with the hospitalist about admitting the patient for his acute kidney injury that is likely related to his bladder outlet obstruction. Impression & Plan Urinary retention, Acute kidney injury, Hydroureteronephrosis Discharge Plan Visit Data Chief Complaint: Abdominal Pain Stated Complaint: ABDOMINAL PAIN ED Provider: Antonino Franz Discharge Problem: Urinary retention, Acute kidney injury, Hydroureteronephrosis Patient Disposition: Being Evaluated by Hospitalist Forms Stand Alone Forms: My [facility] [place] [employer] Prescriptions Prescriptions: No Action atorvastatin 80 mg tablet 80 mg PO QAM Qty: 90 3RF tamsulosin 0.4 mg capsule 0.4 mg PO HS Qty: 30 2RF spironolactone [Aldactone] 25 mg tablet 25 mg PO QAM Qty: 90 3RF [id number] oil [Metanx (algal oil)] 3 mg-35 mg-2 mg -90.314 mg capsule 1 cap PO BID Qty: 60 5RF nitroglycerin [Nitrostat] 0.4 mg tablet, sublingual 0.4 mg sublingual UD PRN (Reason: chest pain) Qty: 30 2RF Gemtesa 75 mg tablet 75 mg PO DAILY levomefolate calcium 1 tab PO carvedilol 12.5 mg tablet 12.5 mg PO BID Qty: 90 3RF Rx Instructions: must administer with a meal/food multivitamin Tablet 1 tab PO HS aspirin 81 mg Tablet,Delayed Release (Dr/Ec) 81 mg PO HS coQ10 (ubiquinol) 100 mg Capsule 200 mg PO HS Prolia 60 mg/mL syringe 60 mg SUBCUT .Q6M Rx Instructions: 60 mg subcut q 6 months ezetimibe 10 mg tablet 10 mg PO QAM Rx Instructions: TAKE 1 TABLET BY MOUTH DAILY ketoconazole 2 % shampoo 1 applic topical WK Rx Instructions: Wash scalp 2-3 times weekly. Let sit for 3-5 minutes prior to rinsing.; Entresto 97-103 mg tablet 1 tab PO BID Rx Instructions: 1/2 tab in AM, 1 whole tab in evening PO; pantoprazole 20 mg tablet,delayed release (DR/EC) 20 mg PO QAM Referrals Referrals: Jorge Owens III, CRNP [Primary Care Provider] -
[2021-11-28 09:29] LABS: Basophils # (auto) 0.03 K/uL (0-0.2); Basophils % (auto) 0.4 %; Eosinophils % (auto) 1.2 %; Hemoglobin 11.4 g/dl (14.0-18.0); Immature Granulocytes # (auto) 0.04 K/uL (0.00-0.02); Immature Granulocytes % (auto) 0.5 %; Lymphocytes # (auto) 0.85 K/uL (1.2-3.4); Lymphocytes % (auto) 10.6 %; Mean Corpuscular Hemoglobin 32.3 pg (25.0-34.0); Mean Corpuscular Hgb Conc 32.6 g/dL (32.0-36.0); Mean Corpuscular Volume 99.2 fL (80.0-100.0); Mean Platelet Volume 10.5 fL (9.4-12.4); Monocytes # (auto) 1.07 K/uL (0.24-0.82); Monocytes % (auto) 13.3 %; Neutrophils # (auto) 5.94 K/uL (1.4-6.5); Platelet Count 235 K/uL (130-400); RDW Coefficient of Variation 13.1 % (11.5-14.5); RDW Standard Deviation 46.9 fL (36.4-46.3); Red Blood Count 3.53 M/uL (4.63-6.08); White Blood Count 8.03 K/ul (4.8-10.8)
[2021-11-28 09:53] LABS: Albumin Globulin Ratio 1.5 (0.9-2); BUN Creatinine Ratio 18.4 (10-20); Bilirubin,Total 0.8 mg/dl (0.2-1.0); Calcium 9.6 mg/dl (8.5-10.1); Creatinine Clr Calc Pharmacy 27.7 ml/min; Est GFR (African American) 30.8 ml/min; Est GFR (Non-African American) 26.6 ml/min; Globulin 2.7 gm/dl (2.5-4.0); Potassium 4.5 mmol/L (3.5-5.1); Total Protein 6.7 gm/dl (6.0-8.3)
--- NOTE | 2021-11-28 10:33 | CT Scan Report ---
CT SCAN OF THE ABDOMEN AND PELVIS WITHOUT IV CONTRAST CLINICAL HISTORY: Left-sided abdominal pain. Urinary retention. COMPARISON STUDY: Abdominal CT dated 09/09/2021. TECHNIQUE: CT scan of the abdomen and pelvis is performed from the lung bases to the proximal femora. Images are reviewed in the axial, sagittal, and coronal planes. IV contrast was not administered for this examination. A dose lowering technique was utilized adhering to the principles of ALARA. The ex amination is degraded by motion artifact. CT DOSE: 483.31 mGy.cm FINDINGS: Lung bases: The patient is status post midline sternotomy. The heart is enlarged and without pericard ial effusion. The coronary arteries are densely calcified. Gynecomastia is noted. There is a small hi atal hernia. Emphysematous change is suggested at the lung bases. There is bibasilar scarring/atelect asis. Scattered calcified granulomas are observed. There is no airspace consolidation typical for pne umonia or pleural effusion. Liver: The unenhanced liver is normal in size, contour, and attenuation. There is no intrahepatic tyler iary ductal dilatation. There are scattered calcified hepatic granulomas. Hepatic cysts measure up to 2.6 cm. Additional subcentimeter hepatic hypodensities also likely represent cysts but are too small for definitive characterization. Gallbladder: There are calcified gallstones with no CT evidence of acute cholecystitis. Spleen: Normal in size and attenuation. Pancreas: The unenhanced pancreas is moderately atrophic and grossly unremarkable. Adrenal glands: Unremarkable. Kidneys: The unenhanced kidneys demonstrate mild cortical atrophy. There is moderate bilateral hydrou reteronephrosis. The ureters are dilated to the level of the distended bladder with no obstructing ca lculus seen. There are least 2 punctate nonobstructing right renal calculi. Tiny nonobstructing left renal calculi measure up to 4 mm. Simple and complex bilateral renal cysts measure up to 3.3 cm. Thes e are similar to previous. A circumaortic left renal vein is incidentally noted. Abdominal vasculature: There is advanced atherosclerotic calcification and mild ectasia of the abdomi nal aorta. Bowel: There is mild colonic diverticulosis without CT evidence of acute diverticulitis. No bowel obs truction is seen. There is moderate colonic fecal retention. The appendix is not identified and repo rted surgically absent. Peritoneum: There is no intraperitoneal free air or abdominal ascites. There is a small fat-containin g umbilical hernia. Lymphadenopathy: None. Pelvic viscera: The bladder is markedly distended. No significant bladder wall thickening is identifi ed A surgical clip is again seen adjacent to the base of the bladder. The prostate gland is diminutiv e and heterogeneous. Findings suggest previous left inguinal herniorrhaphy. Skeletal structures: The skeletal structures are osteopenic there is moderate lumbosacral spondylosis .. No lytic or blastic lesions are seen. IMPRESSION: 1. Marked bladder distention suggests bladder outlet obstruction. 2. There is moderate bilateral hydroureteronephrosis, likely related to the marked bladder distention . 3. Bilateral nephrolithiasis. No ureteral stone is seen. 4. Cholelithiasis. 5. Cardiomegaly and suspect emphysema. 6. Additional findings as above. ACT 112: Negative or not required by law. Electronically signed by: James Gee M.D. 11/28/2021 10:32 AM
--- NOTE | 2021-11-28 11:28 | History & Physical Report ---
Date of Service November 28, 2021 Assessment & Plan (1) Urinary retention: Plan: - Ongoing issue for patient since polyps were several months ago, he has been seen by urology, most recently 9 days ago on 11/19. Treatment options are limited due to recent hyponatremia, dizziness. Vibegron recently started, no relief. - BUN 40, creatinine 2.7, CT evidence of bladder distention and hydronephrosis secondary to outlet obstruction. - Urology consulted, appreciate their recommendations. Urology to place catheter, several attempts were made in ED, however unsuccessful. - Continue Flomax, hold vibegron. - Monitor I&Os. (2) Coronary artery disease: Plan: - s/p CABG x6 in 1983, stents in 2014. - No CP/anginal equivalent at preset, did have CP earlier this week which resolved with SL nitro. - Continue carvedilol, atorvastatin, ASA, nutro SL prn. (3) Heart failure with mid-range ejection fraction: Plan: - EF in 2020 40-45%; b/l LE edema present today, reportedly unchanged for some time as patient was taken off Lasix 2 months ago due to severe hyponatremia. Otherwise no evidence of volume overload. - Holding Entresto and spironolactone for now due to CESAR. - Continue carvedilol, 12.5 mg BID. (4) Cardiomyopathy, ischemic: (5) Gastro-esophageal reflux disease without esophagitis: Plan: - Continue Protonix 20 g daily. (6) Obstructive sleep apnea: Plan: - CPAP at night. (7) Osteoporosis: Plan: - Schedule start Prolia injections every 6 months, has not started. (8) Idiopathic polyneuropathy: Plan: - With associated lightheadedness and dizziness, has extensive work-up for this and all cardiology neurology is ruled out. Patient still experiencing seems like orthostatic hypotension. Medication adjustments have been made, carvedilol dose recently decreased. - Recently started on vitamin B supplementation with no improvement. Plan - Admit to med telemetry. - SCDs for now, defer on chemoppx due to difficult urinary cath, CESAR. Consider starting heparin tomorrow. - Full Code. History of Present Illness Chief Complaint: left flank, abdominal pain x1 day with several days of difficulty urinating Primary Care Provider: Jorge Owens, III, IMANI Jacques Lacey is an 86-year-old male with CAD s/p CABG x6 in 1983, ischemic cardiomyopathy, echo in 2020 with EF 40-45%, hypertension, orthostatic hypotension, hyperlipidemia, KIKE, spinal stenosis, idiopathic neuropathy, depression, GERD who presents from home today with left flank/abdominal pain since last evening. Patient has a longstanding history of urinary retention with leakage, which has been worse over the past week. Last evening, he developed left-sided flank and lower abdominal pain. He is otherwise felt well, without fever/chills, diarrhea, constipation, nausea, vomiting. He had an episode of chest pain earlier this week for which he did nitroglycerin with all eviation of it, otherwise no change in chronic's BENEDICT with activities, denies orthopnea or PND, cough, palpitations, chest pain at present. No pain with urination or blood in urine. Upon ED presentation, vital signs wnl, stable. Labs significant for BUN 40, creatinine 2.7 (baseline 1.21.3), sodium of 135, Hgb 11.4 which is about patient's baseline. CT A/P shows Bladder distention suggestive of bladder outlet obstruction, moderate bilateral hydroureteronephrosis likely due to bladder distention, bilateral nephrolithiasis without obstructing stone seen. Also noted is cholelithiasis, cardiomegaly, suspected emphysema. Allergies Allergy/AdvReac Type Severity Reaction Status Date / Time meloxicam AdvReac Mild nausea Verified 11/20/21 14:18 Home Medications Medication Instructions Recorded Confirmed Type aspirin 81 mg tablet,delayed 81 mg PO HS 12/17/18 11/28/21 History release coQ10 (ubiquinol) 100 mg capsule 200 mg PO HS 12/17/18 11/28/21 History multivitamin 1 tab PO HS 12/17/18 11/28/21 History nitroglycerin 0.4 mg sublingual 0.4 mg sublingual UD PRN chest 05/22/20 11/28/21 Rx tablet (Nitrostat) pain #30 tabs denosumab 60 mg/mL subcutaneous 60 mg subcut .Q6M 06/05/21 11/28/21 History syringe (Prolia) atorvastatin 80 mg tablet 80 mg PO QAM #90 tabs 07/10/21 11/28/21 Rx ezetimibe 10 mg tablet 10 mg PO QAM 07/28/21 11/28/21 History pantoprazole 20 mg tablet,delayed 20 mg PO QAM 08/20/21 11/28/21 History release carvedilol 12.5 mg tablet 12.5 mg PO BID #90 tabs 09/19/21 11/28/21 Rx tamsulosin 0.4 mg capsule 0.4 mg PO HS #30 caps 11/05/21 11/28/21 Rx levomefolate Ca 3 mg-B6 35 1 cap PO BID #60 caps 11/19/21 11/28/21 Rx mg-meB12 2 mg-algal oil 90.314 mg capsule (Metanx (algal oil)) levomefolate calcium 1 tab PO 11/20/21 11/20/21 History vibegron 75 mg tablet (Gemtesa) 75 mg PO DAILY 11/20/21 11/28/21 History spironolactone 25 mg tablet 25 mg PO QAM #90 tabs 11/26/21 11/28/21 Rx (Aldactone) ketoconazole 2 % shampoo 1 applic topical WK 11/28/21 11/28/21 History sacubitril 97 mg-valsartan 103 mg 1 tab PO BID 11/28/21 11/28/21 History tablet (Entresto) Past Med/Surg History Medical History CAD (coronary artery disease) Cardiomyopathy, ischemic Depression GERD (gastroesophageal reflux disease) controlled Hiatal hernia History of adenocarcinoma of prostate History of basal cell carcinoma removed History of squamous cell carcinoma removed Hyperlipidemia Hypertension IVCD (intraventricular conduction defect) follows with Dr. Veronica Myocardial Infarction 1984: CABG 2015: stents Nephrolithiasis Neuropathy of both feet Osteoarthritis Osteoporosis Pulmonary embolism Post-op prostate surgery (1999) Sleep apnea CPAP Spinal stenosis Surgical History H/O cataract extraction bilat History of appendectomy History of colonoscopy History of coronary artery bypass graft x 6 (~1983) 1983 > follows with Dr. Veronica History of esophagogastroduodenoscopy (EGD) History of hernia repair History of lithotripsy (~2012) History of prostatectomy (~1999) hx of cancer> no radiation History of tonsillectomy and adenoidectomy History of tooth extraction Status post arterial stent 4 stents total 2005, 2014 Family History Mother , age 86 of heart issues Myocardial infarction Hypertension Father , age 88 of heart issues Myocardial infarction Prostate cancer Hypertension Brother Myocardial infarction Lung cancer Denies family history of Colon cancer Ovarian cancer Breast cancer Social History Smoking Status: Former smoker Tobacco Type: Cigarettes Age Started Using Tobacco: 18; Age Quit Using Tobacco: 27; packs per day: 0.5; Years Smoked: 9; Second Hand Exposure: No; Hx Alcohol Use: No Hx Substance Use: No Preferred Language: Ivorian Communication Ability: Effective Visual Impairment: Limited Hearing Ability: Normal Fiberline Supervisor Required: No Beliefs That Will Affect Care: None marital status: Current Living Situation: Spouse current occupational status: retired 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) How many Children do You have: 1 Feels Safe at Home: Yes Childhood Exposure to Second-Hand Smoke: No caffeine: No during the past year weight has: remained stable Dental Care, Regularly: Yes Physical Activity Frequency: Does not Exercise Seatbelt Use: sometimes Sunscreen Use: No Assistive Devices: None Review of Systems Review of Systems: Constitutional: No fever/chills, weakness, fatigue, myalgias, anorexia, night sweats Eyes: No diplopia, no worsening or blurred vision ENT: normal hearing, no trouble swallowing Respiratory: No cough, sputum, or change in baseline BENEDICT Cardiovascular: No chest pain, tightness or palpitations Abdomen: No pain, nausea, vomiting, diarrhea or constipation : urinary retention with leakage; Denies dysuria, hematuria Musculoskeletal: b/l leg swelling x weeks with 5lb weight gain over past month; no joint pain, calf pain Neurologic: No weakness, numbness/tingling, or balance problems Psychiatric: No anxiety or depression Skin: No rash or itch Physical Exam Physical Exam: General: awake, alert, no apparent distress Head: Normocephalic, atraumatic ENT: PERRL, EOMI, no pharyngeal exudate, mucous membranes moist Chest: Clear to auscultation, on room air, no adventitious breath sounds Cardiac: Regular rate and rhythm, no murmur, no JVD, normal peripheral pulses, good capillary refill Abdominal: TTP in LUQ, b/l LQ/suprapubic region without rebound or guarding; NABS x 4 quadrants Extremities: b/l foot edema, equal, without pain, decreased sensation at pt's baseline; calfs nontender to palpation Psych: Normal mood and affect Neuro: AAO x 3, strength intact bilaterally and rated 5/5, no motor deficits, speech is clear, no peripheral sensory deficits Skin: no rash or erythema Results & Data Results & Data ([facility]) Vital Signs (Past 12 Hours) Vital Signs Temp Pulse Pulse Resp BP BP Pulse Ox 11/28/21 10:34 80 18 122/65 96 11/28/21 10:30 72 18 98 11/28/21 08:47 36.3 C L 84 20 134/85 97 O2 Del Method 11/28/21 10:34 Room Air 11/28/21 10:30 Room Air 11/28/21 08:47 Room Air Laboratory Results Abnormal lab results 11/28/21 11/28/21 Range/Units 09:12 09:12 RBC 3.53 L (4.63-6.08) M/uL Hgb 11.4 L (14.0-18.0) g/dl Hct 35.0 L (40.1-51.0) % RDW Std Deviation 46.9 H (36.4-46.3) fL Lymph # (Auto) 0.85 L (1.2-3.4) K/uL Bledsoe # (Auto) 1.07 H (0.24-0.82) K/uL Immature Gran # (Auto) 0.04 H (0.00-0.02) K/uL Sodium 135 L (136-145) mmol/L BUN 40 H (6-23) mg/dl Creatinine 2.17 H (0.6-1.4) mg/dl Glucose 116 H (70-99(Fasting)) mg/dl Diagnostic Findings Abdomen/Pelvis CT 11/28/21 09:03 CT SCAN OF THE ABDOMEN AND PELVIS WITHOUT IV CONTRAST CLINICAL HISTORY: Left-sided abdominal pain. Urinary retention. COMPARISON STUDY: Abdominal CT dated 09/09/2021. TECHNIQUE: CT scan of the abdomen and pelvis is performed from the lung bases to the proximal femora. Images are reviewed in the axial, sagittal, and coronal planes. IV contrast was not administered for this examination. A dose lowering technique was utilized adhering to the principles of ALARA. The examination is degraded by motion artifact. CT DOSE: 483.31 mGy.cm FINDINGS: Lung bases: The patient is status post midline sternotomy. The heart is enlarged and without pericardial effusion. The coronary arteries are densely calcified. Gynecomastia is noted. There is a small hiatal hernia. Emphysematous change is suggested at the lung bases. There is bibasilar scarring/atelectasis. Scattered calcified granulomas are observed. There is no airspace consolidation typical for pneumonia or pleural effusion. Liver: The unenhanced liver is normal in size, contour, and attenuation. There is no intrahepatic biliary ductal dilatation. There are scattered calcified hepatic granulomas. Hepatic cysts measure up to 2.6 cm. Additional subcentimeter hepatic hypodensities also likely represent cysts but are too small for definitive characterization. Gallbladder: There are calcified gallstones with no CT evidence of acute cholecystitis. Spleen: Normal in size and attenuation. Pancreas: The unenhanced pancreas is moderately atrophic and grossly unremarkable. Adrenal glands: Unremarkable. Kidneys: The unenhanced kidneys demonstrate mild cortical atrophy. There is moderate bilateral hydroureteronephrosis. The ureters are dilated to the level of the distended bladder with no obstructing calculus seen. There are least 2 punctate nonobstructing right renal calculi. Tiny nonobstructing left renal calculi measure up to 4 mm. Simple and complex bilateral renal cysts measure up to 3.3 cm. These are similar to previous. A circumaortic left renal vein is incidentally noted. Abdominal vasculature: There is advanced atherosclerotic calcification and mild ectasia of the abdominal aorta. Bowel: There is mild colonic diverticulosis without CT evidence of acute diverticulitis. No bowel obstruction is seen. There is moderate colonic fecal retention. The appendix is not identified and reported surgically absent. Peritoneum: There is no intraperitoneal free air or abdominal ascites. There is a small fat-containing umbilical hernia. Lymphadenopathy: None. Pelvic viscera: The bladder is markedly distended. No significant bladder wall thickening is identified A surgical clip is again seen adjacent to the base of the bladder. The prostate gland is diminutive and heterogeneous. Findings suggest previous left inguinal herniorrhaphy. Skeletal structures: The skeletal structures are osteopenic there is moderate lumbosacral spondylosis.. No lytic or blastic lesions are seen. IMPRESSION: 1. Marked bladder distention suggests bladder outlet obstruction. 2. There is moderate bilateral hydroureteronephrosis, likely related to the marked bladder distention. 3. Bilateral nephrolithiasis. No ureteral stone is seen. 4. Cholelithiasis. 5. Cardiomegaly and suspect emphysema. 6. Additional findings as above. ACT 112: Negative or not required by law. Electronically signed by: James Gee M.D. 11/28/2021 10:32 AM Code Status & VTE Plan Code Status Full Code. Supervising Physician Co-Signing Physician Notes Patient seen and examined, chart reviewed, case discussed with Rachel Mcclure PA-C and I agree with the assessment and plan as above except as otherwise noted Labs and images reviewed Sawyer is an 86-year-old male with a history of urinary retention, hyponatremia, prostate cancer, KIKE, CAD with history of CABG x6 and heart failure with mildly reduced EF, hypertension, hyperlipidemia, GERD, idiopathic polyneuropathy, lumbosacral radiculopathy who presents to the emergency department for stomach pain. Patient has had chronic bladder incontinence since polyp removal several months ago with an inability to void normally. Has had continuous dribbling saturating a diaper every 4 hours. Last night on top of this he developed left lower quadrant and left flank pain similar to prior kidney stones. Seen at bedside. Lungs are clear to auscultation, trace pitting edema lower extremities bilaterally. Patient is being seen by urology, and is pending catheterization placement. Bladder outlet obstruction with suspected postrenal CESAR History suspicious for overflow incontinence CTA/P: Marked bladder distention distant with bladder outlet obstruction, bilateral hydroureteronephrosis, bilateral nephrolithiasis without ureteral stone, cholelithiasis, cardiomegaly with suspected emphysema in lower lung car - On admission cr is 2.17 which is acutely elevated from patient's baseline which appears to be approximately 1.31.43. No leukocytosis Hemoglobin 11.4, prior baseline 10.512.7 Sodium on admission 135 No hyperbilirubinemia or transaminitis -Urology consulted. PA to attempt cath, cath attempted in ER unsuccessful. Vibegron 75mg WARRANTY ADMINISTRATOR held Can continue Flomax 0.4 mg p.o. nightly Strict JACKELIN's Heart failure with midrange EF NYHA class IIIII On admission patient is not acutely volume overloaded and does not show evidence of pulmonary edema, however has had some leg swelling 5 pound weight gain. Will obtain chest x-ray, follow ins and outs and placed on telemetry given CESAR with underlying severe cardiac disease and upward trend in volume status. Will defer Lasix given post renal CESAR pending catheterization and follow output TTE 04/26/2021: EF 40-45%. Severe hypokinesis to akinesis of basal to mid inferior wall and basal inferolateral wall. Septal motion consistent with bundle branch block. Mildly dilated RV with moderately reduced systolic function. No change from 10/29/2020 study Hold spironolactone, hold Entresto with CESAR Lasix as needed Continue carvedilol, recently dose decreased 2 weeks ago for lightheadedness IVCD history of IVCD with left bundle branch block, if EF were ever to worsen is considered for biventricular device Continue aspirin p.o. nightly patient is high cardiac risk Continue atorvastatin 80 mg every morning Continue carvedilol 12.5 mg p.o. twice daily, hold for hypotension Entresto held for CESAR Spironolactone held for CESAR Bladder outlet obstruction, bladder incontinence History concerning for overflow incontinence Hyperlipidemia Statin as noted Continue ezetimibe 10 mg p.o. every morning Osteoporosis Pending denosumab, has not received yet May take calcium vitamin D supplement as outpatient no acute management History of dizziness with presyncope, idiopathic polyneuropathy Multiple medication adjustments, most recently has had carvedilol dose reduced Recently started on Metanx, continue PG Care Time/CCT Total # of Minutes Spent Total Time Spent with Patient: Total time spent is greater than 50% in coordination of care (as documented) at patient's floor/unit and/or counseling patient: Coding Level of Care Code 18345 Initial Inpt Care Lvl 2 Diagnoses Urinary retention R33.9 Coronary artery disease I25.810 Associated angina: without angina Coronary Disease-Associated Artery/Lesion type: bypass graft, autologous vein Heart failure with mid-range ejection fraction I50.9 Cardiomyopathy, ischemic I25.5 Gastro-esophageal reflux disease without esophagitis K21.9 Obstructive sleep apnea G47.33 Osteoporosis M81.0 Idiopathic polyneuropathy G60.9 (1) Coronary artery disease Associated angina: without angina Coronary Disease-Associated Artery/Lesion type: bypass graft, autologous vein Qualified Code(s): I25.810 - Atherosclerosis of coronary artery bypass graft(s) without angina pectoris
--- NOTE | 2021-11-28 12:55 | Urology Consultation ---
Date of Consultation November 28, 2021 Assessment & Plan (1) Urinary retention: (2) Prostate cancer: (3) Urethral stricture: Plan 86-year-old male with a history of prostate cancer who also has a history of a bulbar urethral stricture and bladder neck contraction. He presented to the hospital and urinary retention in the emergency department was unable to place a catheter. Procedure: Procedure was deemed emergent and therefore I obtained verbal consent for a possible urethral dilation and possible cystoscopy with barker catheter placement. The patient provided verbal consent. I prepped and draped the patient in sterile fashion. I attempted to advance a 5 Congolese open-ended catheter to gain access into the bladder through his presumed stricture but I met resistance. At that point, I elected to perform a cystoscopy at the bedside. I advanced a flexible cystoscope through the urethra and ran into a very dense, narrow stricture in the bulbar urethra that was likely 5-6 Congolese. I attempted to advance a Super Stiff wire through this under visualization but was unsuccessful. I then advanced a 5 Congolese open-ended catheter through the scope and parked this at the stricture. I then was able to pass a wire through the 5 Congolese and patient confirmed that he felt the wire in his bladder. I backed the cystoscope out over the wire and went back into the urethra alongside it and confirmed that the wire was not coiling in the urethra. I removed the cystoscope. I then advanced a 5 Congolese open-ended catheter over the wire and removed the wire. I got return of urine which confirmed that I was in the bladder. I then advanced the wire back into the bladder and removed the 5 Congolese. I then sequentially dilated using S dilators from 8-20 Congolese without difficulty. I then advanced a 16 Congolese ho-chunk tip catheter over the wire into the bladder. There was return of urine. I removed the Super Stiff wire and inflated the balloon with 10 cc of sterile water and set the catheter to gravity drainage. Patient tolerated the procedure well. Recommendations: Maintain Barker catheter. Recommend patient be discharged with this and we will set him up an outpatient follow-up for possible void trial and discussion of management moving forward with Dr. Eaton. Recommend one-time dose of antibiotic to cover for instrumentation. Recommend obtaining urine culture catheter prior to antibiotic Trend labs. If catheter draining and patient improving tomorrow, stable for discharge home from a urologic perspective Urology will schedule outpatient follow-up Urology to sign off History of Present Illness Reason for Consultation: Difficult Barker placement History of Present Illness 86-year-old male with a history of prostate cancer status post prostatectomy. He follows with my partner Dr. Eaton and most recently underwent a cystoscopy, TURBT, incision of bladder neck stricture and urethral dilation on 08/25/2021. He had a bulbar urethral stricture as well as a bladder neck contracture that were dilated and incised respectively. Pathology from TURBT was negative. He came back to the emergency department today with difficulty urinating in the ED was unable to place a Barker catheter. He was afebrile with stable vitals. I reviewed his labs which shows a white blood cell count of 8.03, hemoglobin 11.4, creatinine of 2.17 (most recent value was 1.41). I dependently reviewed a CT scan of the abdomen pelvis which showed an incredibly distended bladder and bilateral hydroureteronephrosis, likely due to bladder di stention. Patient reports that he has not been voiding well for several months and has been incontinent into a diaper. Allergies Allergy/AdvReac Type Severity Reaction Status Date / Time meloxicam AdvReac Mild nausea Verified 11/20/21 14:18 Home Medications Medication Instructions Recorded Confirmed Type aspirin 81 mg tablet,delayed 81 mg PO HS 12/17/18 11/28/21 History release coQ10 (ubiquinol) 100 mg capsule 200 mg PO HS 12/17/18 11/28/21 History multivitamin 1 tab PO HS 12/17/18 11/28/21 History nitroglycerin 0.4 mg sublingual 0.4 mg sublingual UD PRN chest 05/22/20 11/28/21 Rx tablet (Nitrostat) pain #30 tabs denosumab 60 mg/mL subcutaneous 60 mg subcut .Q6M 06/05/21 11/28/21 History syringe (Prolia) atorvastatin 80 mg tablet 80 mg PO QAM #90 tabs 07/10/21 11/28/21 Rx ezetimibe 10 mg tablet 10 mg PO QAM 07/28/21 11/28/21 History pantoprazole 20 mg tablet,delayed 20 mg PO QAM 08/20/21 11/28/21 History release carvedilol 12.5 mg tablet 12.5 mg PO BID #90 tabs 09/19/21 11/28/21 Rx tamsulosin 0.4 mg capsule 0.4 mg PO HS #30 caps 11/05/21 11/28/21 Rx levomefolate Ca 3 mg-B6 35 1 cap PO BID #60 caps 11/19/21 11/28/21 Rx mg-meB12 2 mg-algal oil 90.314 mg capsule (Metanx (algal oil)) levomefolate calcium 1 tab PO 11/20/21 11/20/21 History vibegron 75 mg tablet (Gemtesa) 75 mg PO DAILY 11/20/21 11/28/21 History spironolactone 25 mg tablet 25 mg PO QAM #90 tabs 11/26/21 11/28/21 Rx (Aldactone) ketoconazole 2 % shampoo 1 applic topical WK 11/28/21 11/28/21 History sacubitril 97 mg-valsartan 103 mg 1 tab PO BID 11/28/21 11/28/21 History tablet (Entresto) Patient History Medical History CAD (coronary artery disease) Cardiomyopathy, ischemic Depression GERD (gastroesophageal reflux disease) controlled Hiatal hernia History of adenocarcinoma of prostate History of basal cell carcinoma removed History of squamous cell carcinoma removed Hyperlipidemia Hypertension IVCD (intraventricular conduction defect) follows with Dr. Veronica Myocardial Infarction 1984: CABG 2015: stents Nephrolithiasis Neuropathy of both feet Osteoarthritis Osteoporosis Pulmonary embolism Post-op prostate surgery (1999) Sleep apnea CPAP Spinal stenosis Surgical History H/O cataract extraction bilat History of appendectomy History of colonoscopy History of coronary artery bypass graft x 6 (~1983) 1983 > follows with Dr. Veronica History of esophagogastroduodenoscopy (EGD) History of hernia repair History of lithotripsy (~2012) History of prostatectomy (~1999) hx of cancer> no radiation History of tonsillectomy and adenoidectomy History of tooth extraction Status post arterial stent 4 stents total 2005, 2014 Family History Mother , age 86 of heart issues Myocardial infarction Hypertension Father , age 88 of heart issues Myocardial infarction Prostate cancer Hypertension Brother Myocardial infarction Lung cancer Denies family history of Colon cancer Ovarian cancer Breast cancer Social History Smoking Status: Former smoker Tobacco Type: Cigarettes Age Started Using Tobacco: 18; Age Quit Using Tobacco: 27; packs per day: 0.5; Years Smoked: 9; Second Hand Exposure: No; Hx Alcohol Use: No Hx Substance Use: No Preferred Language: Occitan Communication Ability: Effective Visual Impairment: Limited Hearing Ability: Normal 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 General Required: No Beliefs That Will Affect Care: None marital status: Current Living Situation: Spouse current occupational status: retired 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) How many Children do You have: 1 Feels Safe at Home: Yes Childhood Exposure to Second-Hand Smoke: No caffeine: No during the past year weight has: remained stable Dental Care, Regularly: Yes Physical Activity Frequency: Does not Exercise Seatbelt Use: sometimes Sunscreen Use: No Assistive Devices: None Review of Systems Review of Systems: 14 point review of systems negative outside of what is listed above in HPI Physical Exam Physical Exam: General: Alert and oriented, no acute distress HEENT: Normocephalic, mucous membranes moist Pulmonary: Nonlabored respirations Abdomen: Nondistended : Circumcised phallus with orthotopic meatus. Extremities: Moves all 4 spontaneously Neuro: No gross deficits Skin: Warm, dry, no rashes noted Results & Data ([facility]) Vital Signs (Past 12 Hours) Vital Signs Temp Pulse Pulse Resp BP BP Pulse Ox 11/28/21 12:01 81 18 142/77 H 98 11/28/21 10:34 80 18 122/65 96 11/28/21 10:30 72 18 98 11/28/21 08:47 36.3 C L 84 20 134/85 97 O2 Del Method 11/28/21 12:01 Room Air 11/28/21 10:34 Room Air 11/28/21 10:30 Room Air 11/28/21 08:47 Room Air PG Care Time/CCT Total # of Minutes Spent Total Time Spent with Patient: Total time spent is greater than 50% in coordination of care (as documented) at patient's floor/unit and/or counseling patient: C[place] [address] Inpt Consult Level 5 Patient Type Established Diagnoses Urinary retention R33.9 Prostate cancer C61 Urethral stricture N35.919
[2021-11-28 12:59] LABS: Appearance Urine Clear (Clear); Bacteria Urine Automated Negative (Negative); Bilirubin Urine Negative (Negative); Blood Urine 3+ (Negative); Cast Urine Automated 0 /lpf (0-5); Color Urine Yellow; Epithelial Cell Urine Auto 20-30 /lpf (0-5); Glucose Urine UA Negative (Negative); Ketones Urine Negative (Negative); Leukocyte Esterase Urine Trace (Negative); Nitrite Urine Negative (Negative); Protein Urine Negative (Negative); Urobilinogen Urine Negative (Negative)
--- NOTE | 2021-11-28 13:09 | XRay Report ---
XR chest 1V portable CLINICAL HISTORY: SOB and weight gain, hx of HF TECHNIQUE: Single frontal radiograph of the chest was obtained. Comparison: Comparison is made to chest radiograph 09/09/2021 FINDINGS: Median sternotomy wires are seen. Calcified aortic knob is seen. There is elevation of the right aleksandr diaphragm. No evidence of pleural effusion or pneumothorax. IMPRESSION: No acute chest disease. ACT 112: Negative or not required by law. Electronically signed by: Segundo Vergara M.D. 11/28/2021 1:08 PM
[2021-11-28] MEDS ORDERED: POLYETHYLENE (MIRALAX) 17 GM PACK PO PRN (16:02)
[2021-11-28] MEDS ORDERED: ACETAMINOPHEN 325 MG TAB PO PRN (16:02)
[2021-11-28] MEDS ORDERED: NITROGLYCERIN SL 0.4 MG/TAB TAB SL PRN (16:02)
[2021-11-28] MEDS ORDERED: ONDANSETRON INJ 2 MG/ML 2 ML VIAL IV PRN (16:02)
[2021-11-28 16:05] LABS: Appearance Urine Clear (Clear); Bacteria Urine Automated Negative (Negative); Bilirubin Urine Negative (Negative); Blood Urine 3+ (Negative); Color Urine Yellow; Epithelial Cell Urine Auto >30 /lpf (0-5); Glucose Urine UA Negative (Negative); Ketones Urine Negative (Negative); Leukocyte Esterase Urine 1+ (Negative); Nitrite Urine Negative (Negative); Protein Urine 1+ (Negative); RBC Urine Automated >30 /hpf (0-4); Specific Gravity Urine 1.007 (1.000-1.030); Urobilinogen Urine Negative (Negative); pH Urine 5.5 (4.5-7.5)
[2021-11-28] MEDS ORDERED: cefTRIAXone SODIUM 2,000 MG in DEXTROSE 5% 50 ML IV ONE (16:30)
[2021-11-28] MEDS: carvediloL 12.5 MG TAB PO SCH (17:56)
[2021-11-28] MEDS ORDERED: TAMSULOSIN HCL 0.4 MG CAP PO SCH (21:00)
[2021-11-28] MEDS ORDERED: ASPIRIN 81 MG ECTAB PO SCH (21:00)
[2021-11-28] MEDS ORDERED: NON-FORMULARY MEDICATION (Levomefol-B6-Meb12-Algal Oil [Metanx (Algal Oil)] 3 mg-35 mg-2 m PO SCH (21:00)
[2021-11-29 06:45] LABS: Basophils # (auto) 0.02 K/uL (0-0.2); Basophils % (auto) 0.3 %; Eosinophils # (auto) 0.21 K/uL (0-0.50); Eosinophils % (auto) 3.5 %; Hematocrit (blood only) 28.9 % (40.1-51.0); Hemoglobin 9.6 g/dl (14.0-18.0); Immature Granulocytes # (auto) 0.02 K/uL (0.00-0.02); Immature Granulocytes % (auto) 0.3 %; Lymphocytes # (auto) 1.24 K/uL (1.2-3.4); Lymphocytes % (auto) 20.8 %; Mean Corpuscular Hemoglobin 32.3 pg (25.0-34.0); Mean Corpuscular Hgb Conc 33.2 g/dL (32.0-36.0); Mean Corpuscular Volume 97.3 fL (80.0-100.0); Mean Platelet Volume 10.5 fL (9.4-12.4); Monocytes % (auto) 15.1 %; Neutrophils # (auto) 3.58 K/uL (1.4-6.5); Platelet Count 184 K/uL (130-400); RDW Coefficient of Variation 12.8 % (11.5-14.5); RDW Standard Deviation 45.8 fL (36.4-46.3); Red Blood Count 2.97 M/uL (4.63-6.08); White Blood Count 5.97 K/ul (4.8-10.8)
[2021-11-29 07:10] LABS: BUN Creatinine Ratio 19.8 (10-20); Calcium 8.8 mg/dl (8.5-10.1); Creatinine Clr Calc Pharmacy 34.8 ml/min; Est GFR (African American) 40.8 ml/min; Est GFR (Non-African American) 35.2 ml/min
[2021-11-29] MEDS: carvediloL 12.5 MG TAB PO SCH (08:32)
[2021-11-29] MEDS: MAGNESIUM SULFATE / D5W 1 GM/100 ML BAG IV SCH ×3 (08:37→12:20)
[2021-11-29] MEDS ORDERED: EZETIMIBE 10 MG TABLET PO SCH (09:00)
[2021-11-29] MEDS ORDERED: ATORVASTATIN 40 MG TAB PO SCH (09:00)
[2021-11-29] MEDS ORDERED: PANTOprazole 40 MG TAB PO SCH (09:00)
--- NOTE | 2021-11-29 10:45 | Discharge Summary ---
Date of Service November 29, 2021 Admission HPI Per Admitting Provider Sawyer Rahman is an 86-year-old male with CAD s/p CABG x6 in 1983, ischemic cardiomyopathy, echo in 2020 with EF 40-45%, hypertension, orthostatic hypotension, hyperlipidemia, KIKE, spinal stenosis, idiopathic neuropathy, depression, GERD who presents from home today with left flank/abdominal pain since last evening. Patient has a longstanding history of urinary retention with leakage, which has been worse over the past week. Last evening, he developed left-sided flank and lower abdominal pain. He is otherwise felt well, without fever/chills, diarrhea, constipation, nausea, vomiting. He had an episode of chest pain earlier this week for which he did nitroglycerin with alleviation of it, otherwise no change in chronic's BENEDICT with activities, denies orthopnea or PND, cough, palpitations, chest pain at present. No pain with urination or blood in urine. Upon ED presentation, vital signs wnl, stable. Labs significant for BUN 40, creatinine 2.7 (baseline 1.21.3), sodium of 135, Hgb 11.4 which is about p atient's baseline. CT A/P shows Bladder distention suggestive of bladder outlet obstruction, moderate bilateral hydroureteronephrosis likely due to bladder distention, bilateral nephrolithiasis without obstructing stone seen. Also noted is cholelithiasis, cardiomegaly, suspected emphysema. Principal Diagnosis 1. CESAR due to obstructive uropathy 2. Urinary retention d/t urethral stricture 3. Hypomagnesemia Discharge Exam GENERAL: 86 yo Well-developed, well-nourished elderly WM. NAD. LUNGS: Clear to auscultation bilaterally. No accessory muscle use. No W/R/R. CARDIOVASCULAR: Regular rate and rhythm. No M/G/R. No JVD. ABDOMEN: Soft, non-tender and non-distended. BS normoactive x 4 quad. : barker catheter in place, urine clear yellow EXTREMITIES: No edema. Non-tender. Peripheral pulses +2/4. NEUROLOGIC: A&O x3. Nonfocal PSYCHIATRIC: Cooperative. Appropriate mood and affect. SKIN: Warm, dry, intact. No rashes or lesions. Discharge Data Allergies Allergy/AdvReac Type Severity Reaction Status Date / Time meloxicam AdvReac Mild nausea Verified 11/20/21 14:18 Consultations 11/28/21 11:33 ED Decision to Admit Stat 11/28/21 16:02 Consult Urology Routine Ordered Studies Abdomen/Pelvis CT 11/28/21 09:03 CT SCAN OF THE ABDOMEN AND PELVIS WITHOUT IV CONTRAST CLINICAL HISTORY: Left-sided abdominal pain. Urinary retention. COMPARISON STUDY: Abdominal CT dated 09/09/2021. TECHNIQUE: CT scan of the abdomen and pelvis is performed from the lung bases to the proximal femora. Images are reviewed in the axial, sagittal, and coronal planes. IV contrast was not administered for this examination. A dose lowering technique was utilized adhering to the principles of ALARA. The examination is degraded by motion artifact. CT DOSE: 483.31 mGy.cm FINDINGS: Lung bases: The patient is status post midline sternotomy. The heart is enlarged and without pericardial effusion. The coronary arteries are densely calcified. Gynecomastia is noted. There is a small hiatal hernia. Emphysematous change is suggested at the lung bases. There is bibasilar scarring/atelectasis. Scattered calcified granulomas are observed. There is no airspace consolidation typical for pneumonia or pleural effusion. Liver: The unenhanced liver is normal in size, contour, and attenuation. There is no intrahepatic biliary ductal dilatation. There are scattered calcified hepatic granulomas. Hepatic cysts measure up to 2.6 cm. Additional subcentimeter hepatic hypodensities also likely represent cysts but are too small for definitive characterization. Gallbladder: There are calcified gallstones with no CT evidence of acute cholecystitis. Spleen: Normal in size and attenuation. Pancreas: The unenhanced pancreas is moderately atrophic and grossly unremarkable. Adrenal glands: Unremarkable. Kidneys: The unenhanced kidneys demonstrate mild cortical atrophy. There is moderate bilateral hydroureteronephrosis. The ureters are dilated to the level of the distended bladder with no obstructing calculus seen. There are least 2 punctate nonobstructing right renal calculi. Tiny nonobstructing left renal calculi measure up to 4 mm. Simple and complex bilateral renal cysts measure up to 3.3 cm. These are similar to previous. A circumaortic left renal vein is incidentally noted. Abdominal vasculature: There is advanced atherosclerotic calcification and mild ectasia of the abdominal aorta. Bowel: There is mild colonic diverticulosis without CT evidence of acute diverticulitis. No bowel obstruction is seen. There is moderate colonic fecal retention. The appendix is not identified and reported surgically absent. Peritoneum: There is no intraperitoneal free air or abdominal ascites. There is a small fat-containing umbilical hernia. Lymphadenopathy: None. Pelvic viscera: The bladder is markedly distended. No significant bladder wall thickening is identified A surgical clip is again seen adjacent to the base of the bladder. The prostate gland is diminutive and heterogeneous. Findings suggest previous left inguinal herniorrhaphy. Skeletal structures: The skeletal structures are osteopenic there is moderate lumbosacral spondylosis.. No lytic or blastic lesions are seen. IMPRESSION: 1. Marked bladder distention suggests bladder outlet obstruction. 2. There is moderate bilateral hydroureteronephrosis, likely related to the marked bladder distention. 3. Bilateral nephrolithiasis. No ureteral stone is seen. 4. Cholelithiasis. 5. Cardiomegaly and suspect emphysema. 6. Additional findings as above. ACT 112: Negative or not required by law. Electronically signed by: James Gee M.D. 11/28/2021 10:32 AM Chest X-Ray 11/28/21 12:21 XR chest 1V portable CLINICAL HISTORY: SOB and weight gain, hx of HF TECHNIQUE: Single frontal radiograph of the chest was obtained. Comparison: Comparison is made to chest radiograph 09/09/2021 FINDINGS: Median sternotomy wires are seen. Calcified aortic knob is seen. There is elevation of the right hemidiaphragm. No evidence of pleural effusion or pneumothorax. IMPRESSION: No acute chest disease. ACT 112: Negative or not required by law. Electronically signed by: Segundo Vergara M.D. 11/28/2021 1:08 PM Hospital Course (1) Urinary retention: Urinary retention with CESAR d/t obstruction - Ongoing issue for patient since polyps were several months ago, he has been seen by urology, most recently 9 days ago on 11/19. Treatment options are limited due to recent hyponatremia, dizziness. Vibegron recently started, no relief. - BUN 40, creatinine 2.17, CT evidence of bladder distention and hydronephrosis secondary to outlet obstruction. - Urology consulted, appreciate their recommendations. Urology placed catheter. One dose of IV Rocephin given. - Continued Flomax, vibegron stopped. - Urology notes pt stable from their standpoint for discharge. Will contact him to schedule f/u. - Transition pt to leg back prior to discharge. - Creatinine greatly improved since placement of catheter down to 1.72- anticipate this will continue to improve (2) Hypomagnesemia: - Markedly low at 1.0 - Replacement ordered with Mag Riders 1g q1h x3 - Repeat mag level @ 1300, if WNL no further replacement, if still low additional replacement to be ordered - Will start on daily supplementation as outpatient (3) Coronary artery disease: CAD and ischemic cardiomyopathy - s/p CABG x6 in 1983, stents in 2014. - No CP/anginal equivalent at preset, did have CP earlier this week which resolved with SL nitro. - Continue carvedilol, atorvastatin, ASA, nitro SL prn. (4) Heart failure with mid-range ejection fraction: - EF in 2020 40-45%; b/l LE edema present today, reportedly unchanged for some t anupama as patient was taken off Lasix 2 months ago due to severe hyponatremia. Otherwise no evidence of volume overload. - Holding Entresto and spironolactone for now due to CESAR. - Continue carvedilol 12.5 mg BID. (5) Gastro-esophageal reflux disease without esophagitis: - Continue Protonix 20 g daily. (6) Obstructive sleep apnea: - CPAP at night. (7) Osteoporosis: - Schedule start Prolia injections every 6 months, has not started. (8) Idiopathic polyneuropathy: - With associated lightheadedness and dizziness, has extensive work-up for this and all cardiology neurology is ruled out. Patient still experiencing seems like orthostatic hypotension. Medication adjustments have been made, carvedilol dose recently decreased. - Recently started on vitamin B supplementation with no improvement. Plan Patient is medically stable for discharge today after magnesium replacement completed. Advise f/u with urology as instructed (their office will contact pt to schedule). Also advise f/u with pcp in 7-10 days. Plan has been d/w Dr. Broussard who has also seen and evaluated this pt and agrees with aforementioned. Total Time Total Time Spent Total Time Spent (In Minutes): >30 minutes Discharge Plan Discharge Items Patient Disposition: Home - Self-Care Reason For Visit: CESAR 2/2 OUTLET OBSTRUCTION Discharge Diagnosis: decreased kidney function due to urine retention Activity: Resume your previous activity Non-emergency contact: Primary Care Provider and Urologist Call non-emergency contact if: you have any medication questions Follow-up/Referrals: Jorge Owens III, CRNP [Primary Care Provider] - 12/02/21 9:20 am Diet: Regular and Heart Healthy Addtl Attending Provider Instructions: You were hospitalized due to urinary flow blockage which caused your kidneys to not work properly. With placement of a catheter, your kidney function improved. Urology has advised that you maintain your catheter until you are seen in the office by Dr. Caro for follow up. His office will contact you with an appointment. Please stop taking Gemtesa. Remaining medications can be resumed as prescribed. Follow up with your family healthcare provider within 1 week of discharge. If you have any questions after you are discharged, you may call the nonemergency number listed on your discharge paperwork. In the event of a medical emergency, call 911. Pending Studies at Discharge: No Stand-Alone Forms: My [facility], Smoking Cessation Medications and DC Order Prescriptions: New magnesium oxide 400 mg (241.3 mg magnesium) tablet 400 mg PO BID Qty: 60 0RF Continued atorvastatin 80 mg tablet 80 mg PO QAM Qty: 90 3RF tamsulosin 0.4 mg capsule 0.4 mg PO HS Qty: 30 2RF spironolactone [Aldactone] 25 mg tablet 25 mg PO QAM Qty: 90 3RF [id number] oil [Metanx (algal oil)] 3 mg-35 mg-2 mg -90.314 mg capsule 1 cap PO BID Qty: 60 5RF nitroglycerin [Nitrostat] 0.4 mg tablet, sublingual 0.4 mg sublingual UD PRN (Reason: chest pain) Qty: 30 2RF levomefolate calcium 1 tab PO carvedilol 12.5 mg tablet 12.5 mg PO BID Qty: 90 3RF Rx Instructions: must administer with a meal/food multivitamin Tablet 1 tab PO HS aspirin 81 mg Tablet,Delayed Release (Dr/Ec) 81 mg PO HS coQ10 (ubiquinol) 100 mg Capsule 200 mg PO HS Prolia 60 mg/mL syringe 60 mg SUBCUT .Q6M Rx Instructions: 60 mg subcut q 6 months ezetimibe 10 mg tablet 10 mg PO QAM Rx Instructions: TAKE 1 TABLET BY MOUTH DAILY ketoconazole 2 % shampoo 1 applic topical WK Rx Instructions: Wash scalp 2-3 times weekly. Let sit for 3-5 minutes prior to rinsing.; Entresto 97-103 mg tablet 1 tab PO BID Rx Instructions: 1/2 tab in AM, 1 whole tab in evening PO; pantoprazole 20 mg tablet,delayed release (DR/EC) 20 mg PO QAM Discontinued Gemtesa 75 mg tablet 75 mg PO DAILY Discharge Orders: Discharge Order (Routine); Ordered 11/29/21 Ordered By: Yoselyn Oliveros Admission Data Admit Date/Time: 11/28/21 12:03 Attending Provider: Nathan Broussard Admit Provider: Pavan Razo Primary Care Provider: Jorge Owens III Other Providers: Pavan Razo ; Eric Dugan Other Interventions: Discharge Summary Assessment (RN) Last Done: 11/29/21 13:57 Supervising Physician Co-Signing Physician Notes I personally examined the patient and verified all villa points of history and exam, discussed case, and agree with decision making with Liliana Oliveros PAC feeling better up to going home urology input appreciated vitals noted nad barker in place clear yellow urine CESAR (really ARF based on rise of creatinine above baseline) due to urinary retention - now remedied w barker, creat improving. safe/stable for home, outpt urology f/u otherwise as above Coding Level of Care Code 42052 OBS Care - Discharge Diagnoses Urinary retention R33.9 Hypomagnesemia E83.42 Coronary artery disease I25.810 Associated angina: without angina Coronary Disease-Associated Artery/Lesion type: bypass graft, autologous vein Heart failure with mid-range ejection fraction I50.9 Gastro-esophageal reflux disease without esophagitis K21.9 Obstructive sleep apnea G47.33 Osteoporosis M81.0 Idiopathic polyneuropathy G60.9
--- NOTE | 2021-11-29 14:06 | Communication Note ---
Date of Service: November 29, 2021 By CMS guidelines, a determination that the admission or continued stay is not medically necessary has been made by a member of the UR committee and a phy sician for this hospital stay, therefore a Code 44 will be completed and the Inpatient admission will be changed to outpatient.
--- NOTE | 2021-11-29 14:42 | Communication Note ---
Date of Service: November 29, 2021 By CMS guidelines, a determination that the admission or continued stay is not medically necessary has been made by a member of the UR committee and a ph ysician for this hospital stay, therefore a Code 44 will be completed and the Inpatient admission will be changed to outpatient. Rj Velasquez MD Member, Utilization Review Committee
== END 2021-11-29 14:55 | disposition home or self-care (01) ==
LOC: ED 08:44 → EDINP 12:03 → SUATTDRO 12:03 → INTOOBSV 12:03 → 2N 15:52

== ENCOUNTER 2022-03-25 08:51 | Inpatient (IN) ==
--- NOTE | 2022-03-25 09:19 | Emergency Department Note ---
Impression & Plan Stroke-like symptom, Urinary tract infection ED Provider Note NAME: MADDIE GIRARD AGE: 86 SEX: M : 1935 ARRIVES VIA: Walk-In INFORMANT: Patient, ED PROVIDER(S): Haseeb Arnold DO CHIEF COMPLAINT: Strokelike symptoms HPI: The patient is an 86-year-old male who presented to the emergency department for an evaluation of strokelike symptoms. The patient states that on Wednesday he started noticing difficulty ambulating. He was having trouble with weakness in his right leg he also noticed trouble with his right upper extremity being weak. The patient also notices a dark spot on the outside of his right vision. He states that the symptoms have been constant since they started on Wednesday. He does not notice them as much when he is at rest and lying down but when he tries to ambulate he notices the symptoms more. He denies having any fever. He denies having any headache. He has a history of cardiac disease. He states has been compliant with his outpatient medications. The patient is not been seen by his primary care physician for the symptoms. ROS: See above HPI for pertinent positives & negatives. A total of 10 systems reviewed and were otherwise negative. PAST MEDICAL HISTORY: See Below PAST SURGICAL HISTORY: See Below FAMILY HISTORY: See Below SOCIAL HISTORY: See Below HOME MEDICATIONS: See Below ALLERGIES: See Below VITALS: See Below PHYSICAL EXAMINATION: GENERAL: Patient is awake alert in no acute distress patient is resting comfortably and showing no signs of anxiety EYES: The conjunctivae are clear. The pupils are round and reactive. EARS, NOSE, MOUTH AND THROAT: The nose is without any evidence of any deformity. Mucous membranes are moist. Tongue is midline. NECK: The neck is nontender and supple. RESPIRATORY: Normal respiratory effort is noted there is no evidence of wheezing rhonchi or rales CARDIOVASCULAR: Regular rate and rhythm noted there no murmurs rubs or gallops normal S1 normal S2. GASTROINTESTINAL: The abdomen is soft. Abdomen is nontender. MUSCULOSKELETAL/EXTREMITIES: There is no evidence of gross deformity full range of motion is noted in the hips and shoulders. SKIN: Skin is warm and dry. There is no significant pedal edema. NEUROLOGIC: Patient is awake alert and oriented x3. There is no facial droop noted. 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 Patient's gait was shuffling. MEDICAL DECISION MAKING: Patient is an 86-year-old male who presented to the emergency department for an evaluation of right-sided weakness. The patient also had visual difficulty and difficulty ambulating. The patient's symptoms have been ongoing for greater than 24 hours. He was not made a stroke alert. I discussed the patient's laboratory and radiographic studies with him. He was treated with IV fluids and IV antibiotics for presumed urinary tract infection. At this time no acute abnormality was noted on neuroimaging. He does appear to have findings of neurologic deficit on physical exam. I discussed patient's laboratory and radiographic studies with him. I also discussed this case with the on-call [facility] hospitalist. They have agreed to evaluate the patient in the emergency department for further management and disposition. Triage Nursing notes reviewed. Prior medical records reviewed Vital Signs: reviewed and remarkable for no significant abnormalities Differential diagnosis: Infection, dehydration, metabolic abnormality, hypo/hyperglycemia, electrolyte disturbance, anemia, hypoxia, cardiac sources, intracerebral event, toxicologic, neurologic, as well as other pathologies. ER treatment provided: See below Diagnostics interpreted by me: ECG: EKG was obtained in the emergency department. My interpretation is normal sinus rhythm at 70 bpm. There is no ectopy. Left bundle-branch block pattern was noted. This was compared to a tracing from September 09, 2021. No changes were noted Cardiac Monitoring: An order was placed for continuous cardiac monitoring. The monitor shows a rate of 66 bpm with sinus rhythm. Laboratory studies: As stated above and show below. Imaging studies: See below Consultation(s): I discussed this case with Dr. Huston. He agreed to evaluate the patient in the emergency department for further management and disposition. Past Med/Surg History Medical History CAD (coronary artery disease) Cardiomyopathy, ischemic Depression GERD (gastroesophageal reflux disease) controlled Hiatal hernia History of adenocarcinoma of prostate History of basal cell carcinoma removed History of squamous cell carcinoma removed Hyperlipidemia Hypertension IVCD (intraventricular conduction defect) follows with Dr. Veronica Myocardial Infarction 1984: CABG 2015: stents Nephrolithiasis Neuropathy of both feet Osteoarthritis Osteoporosis Pulmonary embolism Post-op prostate surgery (1999) Sleep apnea CPAP Spinal stenosis Surgical History H/O cataract extraction bilat History of appendectomy History of colonoscopy History of coronary artery bypass graft x 6 (~1983) 1983 > follows with Dr. Veronica History of esophagogastroduodenoscopy (EGD) History of hernia repair History of lithotripsy (~2012) History of prostatectomy (~1999) hx of cancer> no radiation History of tonsillectomy and adenoidectomy History of tooth extraction Status post arterial stent 4 stents total 2005, 2014 Family History Mother , age 86 of heart issues Myocardial infarction Hypertension Heart disease Father , age 88 of heart issues Myocardial infarction Prostate cancer Hypertension Heart disease Brother Myocardial infarction Lung cancer Hypertension Heart disease Sister Hypertension Heart disease Other No family history of adverse response to anesthesia No family history of bleeding disorder Denies family history of Colon cancer Ovarian cancer Breast cancer Social History Smoking Status: Never smoker Tobacco Type: Cigarettes Age Started Using Tobacco: 18; Age Quit Using Tobacco: 27; packs per day: 2; Second Hand Exposure: No; Hx Alcohol Use: No Hx Substance Use: No Preferred Language: Occitan Communication Ability: Effective Visual Impairment: Limited Hearing Ability: Normal 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 Operator 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 Required: No Beliefs That Will Affect Care: None marital status: Current Living Situation: Spouse current occupational status: retired 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) How many Children do You have: 1 Feels Safe at Home: Yes Childhood Exposure to Second-Hand Smoke: No caffeine: No during the past year weight has: remained stable Dental Care, Regularly: Yes Physical Activity Frequency: Does not Exercise Seatbelt Use: never Sunscreen Use: No Assistive Devices: Cane and Walker Allergies Allergies Allergy/AdvReac Type Severity Reaction Status Date / Time meloxicam AdvReac Mild nausea Verified 03/11/22 13:22 Home Meds Home Medications Medication Instructions Recorded Confirmed aspirin 81 mg tablet,delayed 81 mg PO HS 12/17/18 03/11/22 release coQ10 (ubiquinol) 100 mg capsule 200 mg PO HS 12/17/18 03/11/22 multivitamin 1 tab PO HS 12/17/18 03/11/22 denosumab 60 mg/mL subcutaneous 60 mg subcut .Q6M 06/05/21 03/11/22 syringe (Prolia) ezetimibe 10 mg tablet 10 mg PO QAM 07/28/21 03/11/22 levomefolate calcium 1 tab PO 11/20/21 03/11/22 ketoconazole 2 % shampoo 1 applic topical WK 11/28/21 03/11/22 sacubitril 97 mg-valsartan 103 mg 1 tab PO BID 11/28/21 03/11/22 tablet (Entresto) famotidine 40 mg tablet (Pepcid) 40 mg PO BID 03/11/22 03/11/22 Previous Rx's Medication Instructions Recorded nitroglycerin 0.4 mg sublingual 0.4 mg sublingual UD PRN chest 05/22/20 tablet (Nitrostat) pain #30 tabs atorvastatin 80 mg tablet 80 mg PO QAM #90 tabs 07/10/21 carvedilol 12.5 mg tablet 12.5 mg PO BID #90 tabs 09/19/21 spironolactone 25 mg tablet 25 mg PO QAM #90 tabs 11/26/21 (Aldactone) gabapentin 300 mg capsule 300 mg PO HS #30 caps 12/22/21 magnesium oxide 400 mg (241.3 mg 400 mg PO BID #180 tabs 12/25/21 magnesium) tablet tamsulosin 0.4 mg capsule 0.4 mg PO HS #30 caps 01/22/22 lactulose 10 gram/15 mL (15 mL) 10 g (15 mL) PO DAILY PRN 01/23/22 oral solution constipation #600 mL bupropion HCl 100 mg tablet,12 hr 100 mg PO BID #180 ea 03/09/22 sustained-release (Wellbutrin SR) famotidine 40 mg tablet (Pepcid) 40 mg PO BID #180 tabs 03/09/22 Results & Data (ED) Vital Signs Vital Signs - 24 hr 03/25/22 08:53 03/25/22 09:44 03/25/22 09:45 Temperature 36.8 C Temperature Source Temporal Artery Scan Pulse Rate 88 Pulse Rate [Apical] 65 Pulse Rate from SpO2 Sensor Respiratory Rate 18 16 Blood Pressure 91/57 L Blood Pressure [Right Arm] 98/59 L Blood Pressure Mean 68 Blood Pressure Mean [Right Arm] 72 Pulse Oximetry 99 97 Oxygen Delivery Method Room Air Room Air Room Air Sepsis Recent Fever Within 48 Hours No Sepsis New/Unexplained Change in Mental Status No Sepsis Action Taken by Nursing No Action Required 03/25/22 10:00 03/25/22 10:00 03/25/22 10:30 Temperature Temperature Source Pulse Rate 63 Pulse Rate [Apical] Pulse Rate from SpO2 Sensor 64 Respiratory Rate 20 Blood Pressure 118/62 111/61 Blood Pressure [Right Arm] Blood Pressure Mean 80 77 Blood Pressure Mean [Right Arm] Pulse Oximetry 97 Oxygen Delivery Method Room Air Sepsis Recent Fever Within 48 Hours Sepsis New/Unexplained Change in Mental Status Sepsis Action Taken by Nursing 03/25/22 10:30 03/25/22 11:01 03/25/22 11:01 Temperature Temperature Source Pulse Rate 62 71 Pulse Rate [Apical] Pulse Rate from SpO2 Sensor 62 Respiratory Rate 20 23 Blood Pressure 133/63 Blood Pressure [Right Arm] Blood Pressure Mean 86 Blood Pressure Mean [Right Arm] Pulse Oximetry 96 99 Oxygen Delivery Method Room Air Room Air Sepsis Recent Fever Within 48 Hours Sepsis New/Unexplained Change in Mental Status Sepsis Action Taken by Nursing 03/25/22 11:30 03/25/22 11:30 03/25/22 12:00 Temperature Temperature Source Pulse Rate 64 Pulse Rate [Apical] Pulse Rate from SpO2 Sensor 64 Respiratory Rate 21 Blood Pressure 122/65 132/72 Blood Pressure [Right Arm] Blood Pressure Mean 84 92 Blood Pressure Mean [Right Arm] Pulse Oximetry 97 Oxygen Delivery Method Room Air Sepsis Recent Fever Within 48 Hours Sepsis New/Unexplained Change in Mental Status Sepsis Action Taken by Nursing 03/25/22 12:00 03/25/22 13:00 03/25/22 13:00 Temperature Temperature Source Pulse Rate 66 68 Pulse Rate [Apical] Pulse Rate from SpO2 Sensor 66 68 Respiratory Rate 22 22 Blood Pressure 132/75 Blood Pressure [Right Arm] Blood Pressure Mean 94 Blood Pressure Mean [Right Arm] Pulse Oximetry 97 98 Oxygen Delivery Method Room Air Room Air Sepsis Recent Fever Within 48 Hours Sepsis New/Unexplained Change in Mental Status Sepsis Action Taken by Nursing 03/25/22 13:30 03/25/22 13:30 03/25/22 14:00 Temperature Temperature Source Pulse Rate 65 Pulse Rate [Apical] Pulse Rate from SpO2 Sensor 64 Respiratory Rate 23 Blood Pressure 130/64 139/73 Blood Pressure [Right Arm] Blood Pressure Mean 86 95 Blood Pressure Mean [Right Arm] Pulse Oximetry 98 Oxygen Delivery Method Room Air Sepsis Recent Fever Within 48 Hours Sepsis New/Unexplained Change in Mental Status Sepsis Action Taken by Nursing 03/25/22 14:00 Temperature Temperature Source Pulse Rate 66 Pulse Rate [Apical] Pulse Rate from SpO2 Sensor 66 Respiratory Rate 23 Blood Pressure Blood Pressure [Right Arm] Blood Pressure Mean Blood Pressure Mean [Right Arm] Pulse Oximetry 98 Oxygen Delivery Method Room Air Sepsis Recent Fever Within 48 Hours Sepsis New/Unexplained Change in Mental Status Sepsis Action Taken by Usp Medications Current Medication List: was personally reviewed by me Laboratory Data Attestation: I reviewed the patient's lab results. Result diagrams: 03/25/22 09:35 03/25/22 09:35 Lab Results 03/25/22 03/25/22 03/25/22 Range/Units 09:35 09:35 09:35 WBC 7.92 (4.8-10.8) K/ul RBC 3.89 L (4.63-6.08) M/uL Hgb 12.9 L (14.0-18.0) g/dl Hct 37.9 L (40.1-51.0) % MCV 97.4 (80.0-100.0) fL MCH 33.2 (25.0-34.0) pg MCHC 34.0 (32.0-36.0) g/dL RDW Std Deviation 46.1 (36.4-46.3) fL RDW Coeff of Pito 12.9 (11.5-14.5) % Plt Count 265 (130-400) K/uL MPV 10.3 (9.4-12.4) fL Immature Gran % (Auto) 0.4 % Neut % (Auto) 66.8 % Lymph % (Auto) 15.0 % [place] % (Auto) 14.3 % Eos % (Auto) 2.9 % Baso % (Auto) 0.6 % Neut # (Auto) 5.29 (1.4-6.5) K/uL Lymph # (Auto) 1.19 L (1.2-3.4) K/uL [place] # (Auto) 1.13 H (0.24-0.82) K/uL Eos # (Auto) 0.23 (0-0.50) K/uL Baso # (Auto) 0.05 (0-0.2) K/uL Immature Gran # (Auto) 0.03 H (0.00-0.02) K/uL PT 11.9 (9.0-12.0) Seconds INR 1.1 (0.9-1.1) APTT 25.1 (21.0-31.0) Seconds PTT Ratio 0.9 Sodium 134 L (136-145) mmol/L Potassium 4.7 (3.5-5.1) mmol/L Chloride 100 (98-107) mmol/L Carbon Dioxide 27 (21-32) mmol/L Anion Gap 7 (3-11) BUN 24 H (6-23) mg/dl Creatinine 1.54 H (0.6-1.4) mg/dl Est Cr Clr Drug Dosing 35.6 ml/min Est GFR ( Amer) 46.7 ml/min Est GFR (Non-Af Amer) 40.3 ml/min BUN/Creatinine Ratio 15.6 (10-20) Glucose 122 H (70-99(Fasting)) mg/dl POC Glucose (70-99) mg/dl Calcium 9.5 (8.5-10.1) mg/dl Magnesium 2.0 (1.7-2.4) mg/dl Total Bilirubin 0.9 (0.2-1.0) mg/dl AST 15 (13-39) U/L ALT 18 (7-52) U/L Alkaline Phosphatase 54 (34-104) U/L Troponin I High Sens 9.2 (0-20) pg/ml Total Protein 6.4 (6.0-8.3) gm/dl Albumin 3.9 (3.4-5.0) gm/dl Globulin 2.5 (2.5-4.0) gm/dl Albumin/Globulin Ratio 1.6 (0.9-2) Urine Color Urine Appearance (Clear) Urine pH (4.5-7.5) Ur Specific [place] (1.000-1.030) Urine Protein (Negative) Urine Glucose (UA) (Negative) Urine Ketones (Negative) Urine Blood (Negative) Urine Nitrite (Negative) Urine Bilirubin (Negative) Urine Urobilinogen (Negative) Ur Leukocyte Esterase (Negative) Urine WBC (Auto) (0-5) /hpf Urine RBC (Auto) (0-4) /hpf U Hyaline Cast (Auto) (0-5) /lpf U Epithel Cells (Auto) (0-5) /lpf Urine Bacteria (Auto) (Negative) Urine Yeast SARS-CoV-2, RNA, NAAT (NEGATIVE) 03/25/22 03/25/22 03/25/22 Range/Units 09:41 10:06 13:17 WBC (4.8-10.8) K/ul RBC (4.63-6.08) M/uL Hgb (14.0-18.0) g/dl Hct (40.1-51.0) % MCV (80.0-100.0) fL MCH (25.0-34.0) pg MCHC (32.0-36.0) g/dL RDW Std Deviation (36.4-46.3) fL RDW Coeff of Pito (11.5-14.5) % Plt Count (130-400) K/uL MPV (9.4-12.4) fL Immature Gran % (Auto) % Neut % (Auto) % Lymph % (Auto) % [place] % (Auto) % Eos % (Auto) % Baso % (Auto) % Neut # (Auto) (1.4-6.5) K/uL Lymph # (Auto) (1.2-3.4) K/uL [place] # (Auto) (0.24-0.82) K/uL Eos # (Auto) (0-0.50) K/uL Baso # (Auto) (0-0.2) K/uL Immature Gran # (Auto) (0.00-0.02) K/uL PT (9.0-12.0) Seconds INR (0.9-1.1) APTT (21.0-31.0) Seconds PTT Ratio Sodium (136-145) mmol/L Potassium (3.5-5.1) mmol/L Chloride (98-107) mmol/L Carbon Dioxide (21-32) mmol/L Anion Gap (3-11) BUN (6-23) mg/dl Creatinine (0.6-1.4) mg/dl Est Cr Clr Drug Dosing ml/min Est GFR ( Amer) ml/min Est GFR (Non-Af Amer) ml/min BUN/Creatinine Ratio (10-20) Glucose (70-99(Fasting)) mg/dl POC Glucose 112 H (70-99) mg/dl Calcium (8.5-10.1) mg/dl Magnesium (1.7-2.4) mg/dl Total Bilirubin (0.2-1.0) mg/dl AST (13-39) U/L ALT (7-52) U/L Alkaline Phosphatase (34-104) U/L Troponin I High Sens (0-20) pg/ml Total Protein (6.0-8.3) gm/dl Albumin (3.4-5.0) gm/dl Globulin (2.5-4.0) gm/dl Albumin/Globulin Ratio (0.9-2) Urine Color Dark Yellow Urine Appearance Turbid A (Clear) Urine pH 6.5 (4.5-7.5) Ur Specific [place] 1.018 (1.000-1.030) Urine Protein 2+ H (Negative) Urine Glucose (UA) Negative (Negative) Urine Ketones Trace H (Negative) Urine Blood Trace H (Negative) Urine Nitrite Positive A (Negative) Urine Bilirubin Negative (Negative) Urine Urobilinogen Negative (Negative) Ur Leukocyte Esterase 3+ H (Negative) Urine WBC (Auto) >30 H (0-5) /hpf Urine RBC (Auto) 5-10 H (0-4) /hpf U Hyaline Cast (Auto) 1-5 (0-5) /lpf U Epithel Cells (Auto) 10-20 H (0-5) /lpf Urine Bacteria (Auto) 4+ H (Negative) Urine Yeast Not Reportable SARS-CoV-2, RNA, NAAT NEGATIVE (NEGATIVE) Administered Medications Discontinued Medications Sodium Chloride (Nss 1000ml) 500 mls @ 999 mls/hr IV .Q31M ONE Stop: 03/25/22 13:30 Last Infusion: 03/25/22 13:46 Dose: 0 mls/hr Documented By: Admin: 03/25/22 13:15 Dose: 999 mls/hr Documented By: JULIANA Ceftriaxone Sodium (Rocephin) 2,000 mg in 70 mls @ 140 mls/hr IV NOW STA Stop: 03/25/22 13:29 Last Infusion: 03/25/22 13:45 Dose: 0 mls/hr Documented By: Admin: 03/25/22 13:15 Dose: 140 mls/hr Documented By: JULIANA Ioversol (Optiray 320 500ml) 101 ml IV ONCE ONE Stop: 03/25/22 11:03 Last Admin: 03/25/22 11:03 Dose: 101 ml Documented By: [facility] Imaging Data Radiologist's Impression: Chest X-Ray 03/25/22 09:10 SINGLE VIEW CHEST CLINICAL HISTORY: Strokelike symptoms. FINDINGS: An AP, portable, upright chest radiograph is compared to study dated 11/28/2021. The patient is status post midline sternotomy. The cardiomediastinal silhouette is top normal for projection noting atherosclerotic calcification of the thoracic aorta. Chronic interstitial thickening is similar to previous. There is chronic elevation of the right hemidiaphragm with bibasilar scarring/atelectasis. No airspace consolidation or large pleural effusion is identified. No pneumothorax is seen. The skeletal structures are osteopenic. The bony thorax is grossly intact. IMPRESSION: No acute cardiopulmonary abnormality. ACT 112: Negative or not required by law. Electronically signed by: James Gee M.D. 03/25/2022 9:[address] 03/25/22 09:10 CT OF THE HEAD WITHOUT CONTRAST CLINICAL HISTORY: neuro deficit, acute stroke suspected. Right-sided weakness. COMPARISON STUDY: Head CT and MRI of the brain September 09, 2021. CT DOSE: 1214.02 mGy.cm TECHNIQUE: Helical axial images of the head were obtained without IV contrast. Automated exposure control was utilized for the study. A dose lowering technique was utilized adhering to the principles of ALARA. FINDINGS: No acute intracranial hemorrhage, midline shift or mass effect is present. White matter hypodensities favor small vessel disease. These are similar to prior exam. The ventricular system is unremarkable. The basal cisterns are patent. No extra-axial collections are present. There are no findings to suggest acute dural sinus thrombosis or acute territorial infarct. No significant calvarial abnormalities are present. IMPRESSION: No acute intracranial findings. ACT 112: Negative or not required by law. Electronically signed by: Umang Smith M.D. 03/25/2022 11:25 AM Head CTA 03/25/22 09:10 CT angio head w con CLINICAL HISTORY: 86 years-old Male with neuro deficit, acute stroke suspected. Acute strokelike symptoms COMPARISON STUDY: Head CT and CTA head and neck studies of same day, brain MRI 09/09/2021 TECHNIQUE: Following the IV administration of 101 cc of Optiray, CT angiogram of the brain was performed from the skull base to the vertex. Images are reviewed in the axial, sagittal, and coronal planes. 3-D MIPS images are created and assessed. IV contrast was administered without complication. All measurements were obtained according to NASCET criteria. A dose lowering technique was utilized adhering to the principles of ALARA. FINDINGS: CT ANGIOGRAM OF THE BRAIN: Atherosclerosis of the imaged distal internal carotid arteries without high- grade stenosis. The bilateral anterior and middle cerebral arteries are also patent. Dominant left vertebral artery. Atherosclerotic plaque of the V4 segment left vertebral artery without high-grade stenosis. The basilar and posterior cerebral arteries appear patent. There is origin of the left posterior cerebral artery. There is no abnormal intracranial enhancement. There is no aneurysm, high-grade stenosis, or proximal branch occlusion identified. Dural sinuses appear patent. Minimal mucosal thickening of the ethmoid air cells and maxillary sinuses. Prior bilateral lens repair. IMPRESSION: Unremarkable CTA of the head. ACT 112: Negative or not required by law. The above report was generated using voice recognition software. It may contain grammatical, syntax or spelling errors. Electronically signed by: Antoiln Banegas M.D. 03/25/2022 11:33 AM Neck CTA 03/25/22 09:10 CT ANGIOGRAM OF THE NECK CLINICAL HISTORY: Neurological deficits. Strokelike symptoms. Right-sided weakness. COMPARISON STUDY: No priors. TECHNIQUE: Following the IV administration of 101 of Optiray 320, CT angiogram of the neck was performed from the aortic arch to the skull base. Images are r eviewed in the axial, sagittal, and coronal planes. 3-D MIPS images are created and assessed. IV contrast was administered without complication. All measurements were calculated based on NASCET criteria. A dose lowering technique was utilized adhering to the principles of ALARA. FINDINGS: Thoracic aorta: There is atherosclerotic calcification of the thoracic aorta. Visualized portions of the thoracic aorta are normal in caliber. The aortic arch demonstrates standard 3-vessel anatomy. Right carotid arterial system: The right common carotid artery is widely patent, as are the right internal and external carotid arteries. Calcified plaque is noted in the carotid bulb. Left carotid arterial system: The left common carotid artery is widely patent, as are the left internal and external carotid arteries. Calcified plaque is noted in the carotid bulb. Vertebral arteries: The vertebral arteries are widely patent bilaterally noting left-sided dominance. Subclavian arteries: Widely patent bilaterally. Intracranial vasculature: The visualized intracranial vessels at the skull base appear patent. Jugular veins: Widely patent bilaterally. Brain parenchyma: The visualized brain parenchyma the skull base is within normal limits. Lung apices: Partially visualized upper lobe lung parenchyma appears clear. Soft tissues: The visualized pharyngeal soft tissues are normal in appearance noting angiographic phase technique. The oropharyngeal airway appears widely patent. The salivary and thyroid glands are normal in appearance. No cervical lymphadenopathy is seen. Skeletal structures: The skeletal structures are osteopenic. The visualized calvarium at the skull base appears intact. The imaged cervical spine is maintained noting multilevel spondylosis. No lytic or blastic lesion is seen. Midline sternotomy wires are noted. Sinuses and mastoids: There is moderate mucosal thickening in the left sphenoid sinus. The mastoid air cells are well pneumatized. IMPRESSION: Unremarkable CT angiogram of the neck. ACT 112: Negative or not required by law. Electronically signed by: James Gee M.D. 03/25/2022 11:19 AM Discharge Plan Visit Data Chief Complaint: Stroke/CVA Symptoms Stated Complaint: R SIDE WEAKNESS, CLOUDY VISION ED Provider: Haseeb Arnold Discharge Problem: Stroke-like symptom, Urinary tract infection Patient Disposition: Being Evaluated by Hospitalist Forms Stand Alone Forms: [facility] Prescriptions Prescriptions: No Action atorvastatin 80 mg tablet 80 mg PO QAM Qty: 90 3RF spironolactone [Aldactone] 25 mg tablet 25 mg PO QAM Qty: 90 3RF magnesium oxide 400 mg (241.3 mg magnesium) tablet 400 mg PO BID Qty: 180 3RF lactulose 10 gram/15 mL (15 mL) solution 10 g PO DAILY PRN (Reason: constipation) Qty: 600 0RF nitroglycerin [Nitrostat] 0.4 mg tablet, sublingual 0.4 mg sublingual UD PRN (Reason: chest pain) Qty: 30 2RF gabapentin 300 mg capsule 300 mg PO HS Qty: 30 5RF bupropion HCl [Wellbutrin SR] 100 mg tablet sustained-release 12 hr 100 mg PO BID Qty: 180 3RF famotidine [Pepcid] 40 mg tablet 40 mg PO BID Qty: 180 3RF levomefolate calcium 1 tab PO carvedilol 12.5 mg tablet 12.5 mg PO BID Qty: 90 3RF Rx Instructions: must administer with a meal/food tamsulosin 0.4 mg capsule 0.4 mg PO HS Qty: 30 5RF famotidine [Pepcid] 40 mg tablet 40 mg PO BID multivitamin Tablet 1 tab PO HS aspirin 81 mg Tablet,Delayed Release (Dr/Ec) 81 mg PO HS coQ10 (ubiquinol) 100 mg Capsule 200 mg PO HS Prolia 60 mg/mL syringe 60 mg SUBCUT .Q6M Rx Instructions: 60 mg subcut q 6 months ezetimibe 10 mg tablet 10 mg PO QAM Rx Instructions: TAKE 1 TABLET BY MOUTH DAILY ketoconazole 2 % shampoo 1 applic topical WK Rx Instructions: Wash scalp 2-3 times weekly. Let sit for 3-5 minutes prior to rinsing.; Entresto 97-103 mg tablet 1 tab PO BID Rx Instructions: 1/2 tab in AM, 1 whole tab in evening PO; Referrals Referrals: Jorge Owens III, CRNP [Primary Care Provider] -
--- NOTE | 2022-03-25 09:36 | XRay Report ---
SINGLE VIEW CHEST CLINICAL HISTORY: Strokelike symptoms. FINDINGS: An AP, portable, upright chest radiograph is compared to study dated 11/28/2021. The patient is status post midline sternotomy. The cardiomediastinal silhouette is top normal for projection not ing atherosclerotic calcification of the thoracic aorta. Chronic interstitial thickening is similar t o previous. There is chronic elevation of the right hemidiaphragm with bibasilar scarring/atelectasis . No airspace consolidation or large pleural effusion is identified. No pneumothorax is seen. The ske letal structures are osteopenic. The bony thorax is grossly intact. IMPRESSION: No acute cardiopulmonary abnormality. ACT 112: Negative or not required by law. Electronically signed by: James Gee M.D. 03/25/2022 9:35 AM
[2022-03-25 10:10] LABS: Basophils # (auto) 0.05 K/uL (0-0.2); Basophils % (auto) 0.6 %; Eosinophils # (auto) 0.23 K/uL (0-0.50); Eosinophils % (auto) 2.9 %; Hematocrit (blood only) 37.9 % (40.1-51.0); Hemoglobin 12.9 g/dl (14.0-18.0); Immature Granulocytes # (auto) 0.03 K/uL (0.00-0.02); Immature Granulocytes % (auto) 0.4 %; Lymphocytes # (auto) 1.19 K/uL (1.2-3.4); Mean Corpuscular Hemoglobin 33.2 pg (25.0-34.0); Mean Corpuscular Volume 97.4 fL (80.0-100.0); Mean Platelet Volume 10.3 fL (9.4-12.4); Monocytes # (auto) 1.13 K/uL (0.24-0.82); Monocytes % (auto) 14.3 %; Neutrophils # (auto) 5.29 K/uL (1.4-6.5); Neutrophils % (auto) 66.8 %; Platelet Count 265 K/uL (130-400); RDW Coefficient of Variation 12.9 % (11.5-14.5); RDW Standard Deviation 46.1 fL (36.4-46.3); Red Blood Count 3.89 M/uL (4.63-6.08); White Blood Count 7.92 K/ul (4.8-10.8)
[2022-03-25 10:29] LABS: Albumin Globulin Ratio 1.6 (0.9-2); Albumin Level 3.9 gm/dl (3.4-5.0); BUN Creatinine Ratio 15.6 (10-20); Bilirubin,Total 0.9 mg/dl (0.2-1.0); Calcium 9.5 mg/dl (8.5-10.1); Creatinine Clr Calc Pharmacy 35.6 ml/min; Est GFR (African American) 46.7 ml/min; Est GFR (Non-African American) 40.3 ml/min; Globulin 2.5 gm/dl (2.5-4.0); Potassium 4.7 mmol/L (3.5-5.1); Total Protein 6.4 gm/dl (6.0-8.3)
[2022-03-25 10:30] LABS: Appearance Urine Turbid (Clear); Bacteria Urine Automated 4+ (Negative); Bilirubin Urine Negative (Negative); Blood Urine Trace (Negative); Color Urine Dark Yellow; Glucose Urine UA Negative (Negative); Ketones Urine Trace (Negative); Leukocyte Esterase Urine 3+ (Negative); Nitrite Urine Positive (Negative); Protein Urine 2+ (Negative); Specific Gravity Urine 1.018 (1.000-1.030); Urobilinogen Urine Negative (Negative); WBC Urine Automated >30 /hpf (0-5); pH Urine 6.5 (4.5-7.5)
[2022-03-25 10:33] LABS: INR 1.1 (0.9-1.1); Partial Thromboplastin Ratio 0.9; Partial Thromboplastin Time 25.1 Seconds (21.0-31.0); Prothrombin Time 11.9 Seconds (9.0-12.0)
[2022-03-25 10:35] LABS: Troponin I High Sensitivity 9.2 pg/ml (0-20)
[2022-03-25] MEDS ORDERED: OPTIRAY 320 500ml IV ONE (11:02)
--- NOTE | 2022-03-25 11:20 | CT Scan Report ---
CT ANGIOGRAM OF THE NECK CLINICAL HISTORY: Neurological deficits. Strokelike symptoms. Right-sided weakness. COMPARISON STUDY: No priors. TECHNIQUE: Following the IV administration of 101 of Optiray 320, CT angiogram of the neck was perfor med from the aortic arch to the skull base. Images are reviewed in the axial, sagittal, and coronal p lanes. 3-D MIPS images are created and assessed. IV contrast was administered without complication. A ll measurements were calculated based on NASCET criteria. A dose lowering technique was utilized adh ering to the principles of ALARA. FINDINGS: Thoracic aorta: There is atherosclerotic calcification of the thoracic aorta. Visualized portions of the thoracic aorta are normal in caliber. The aortic arch demonstrates standard 3-vessel anatomy. Right carotid arterial system: The right common carotid artery is widely patent, as are the right int ernal and external carotid arteries. Calcified plaque is noted in the carotid bulb. Left carotid arterial system: The left common carotid artery is widely patent, as are the left internal affairs commander al and external carotid arteries. Calcified plaque is noted in the carotid bulb. Vertebral arteries: The vertebral arteries are widely patent bilaterally noting left-sided dominance. Subclavian arteries: Widely patent bilaterally. Intracranial vasculature: The visualized intracranial vessels at the skull base appear patent. Jugular veins: Widely patent bilaterally. Brain parenchyma: The visualized brain parenchyma the skull base is within normal limits. Lung apices: Partially visualized upper lobe lung parenchyma appears clear. Soft tissues: The visualized pharyngeal soft tissues are normal in appearance noting angiographic pha se technique. The oropharyngeal airway appears widely patent. The salivary and thyroid glands are nor mal in appearance. No cervical lymphadenopathy is seen. Skeletal structures: The skeletal structures are osteopenic. The visualized calvarium at the skull ba se appears intact. The imaged cervical spine is maintained noting multilevel spondylosis. No lytic or blastic lesion is seen. Midline sternotomy wires are noted. Sinuses and mastoids: There is moderate mucosal thickening in the left sphenoid sinus. The mastoid ai r cells are well pneumatized. IMPRESSION: Unremarkable CT angiogram of the neck. ACT 112: Negative or not required by law. Electronically signed by: James Gee M.D. 03/25/2022 11:19 AM
--- NOTE | 2022-03-25 11:26 | CT Scan Report ---
CT OF THE HEAD WITHOUT CONTRAST CLINICAL HISTORY: neuro deficit, acute stroke suspected. Right-sided weakness. COMPARISON STUDY: Head CT and MRI of the brain September 09, 2021. CT DOSE: 1214.02 mGy.cm TECHNIQUE: Helical axial images of the head were obtained without IV contrast. Automated exposure con trol was utilized for the study. A dose lowering technique was utilized adhering to the principles o f ALARA. FINDINGS: No acute intracranial hemorrhage, midline shift or mass effect is present. White matter hyp odensities favor small vessel disease. These are similar to prior exam. The ventricular system is unr emarkable. The basal cisterns are patent. No extra-axial collections are present. There are no findin gs to suggest acute dural sinus thrombosis or acute territorial infarct. No significant calvarial abn ormalities are present. IMPRESSION: No acute intracranial findings. ACT 112: Negative or not required by law. Electronically signed by: Umang Smith M.D. 03/25/2022 11:25 AM
--- NOTE | 2022-03-25 11:34 | CT Scan Report ---
CT angio head w con CLINICAL HISTORY: 86 years-old Male with neuro deficit, acute stroke suspected. Acute strokelike s ymptoms COMPARISON STUDY: Head CT and CTA head and neck studies of same day, brain MRI 09/09/2021 TECHNIQUE: Following the IV administration of 101 cc of Optiray, CT angiogram of the brain was perfor med from the skull base to the vertex. Images are reviewed in the axial, sagittal, and coronal planes . 3-D MIPS images are created and assessed. IV contrast was administered without complication. All me asurements were obtained according to NASCET criteria. A dose lowering technique was utilized adherin g to the principles of ALARA. FINDINGS: CT ANGIOGRAM OF THE BRAIN: Atherosclerosis of the imaged distal internal carotid arteries without high-grade stenosis. The bilat eral anterior and middle cerebral arteries are also patent. Dominant left vertebral artery. Atheroscl erotic plaque of the V4 segment left vertebral artery without high-grade stenosis. The basilar and po sterior cerebral arteries appear patent. There is origin of the left posterior cerebral artery. There is no abnormal intracranial enhancement. There is no aneurysm, high-grade stenosis, or proxima l branch occlusion identified. Dural sinuses appear patent. Minimal mucosal thickening of the ethmoid air cells and maxillary sinuses. Prior bilateral lens repai r. IMPRESSION: Unremarkable CTA of the head. ACT 112: Negative or not required by law. The above report was generated using voice recognition software. It may contain grammatical, syntax o r spelling errors. Electronically signed by: Antolin Banegas M.D. 03/25/2022 11:33 AM
--- NOTE | 2022-03-25 12:23 | Electrocardiogram Report ---
Test Reason : Blood Pressure : / mmHG Vent. 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
[2022-03-25] MEDS ORDERED: cefTRIAXone SODIUM 2,000 MG/70 ML BAG IV STA (13:00)
[2022-03-25] MEDS ORDERED: SODIUM CHLORIDE 0.9% 1000ML 500 ML IV ONE (13:00)
[2022-03-25] MEDS ORDERED: ACETAMINOPHEN 325 MG TAB PO PRN (14:29)
[2022-03-25] MEDS ORDERED: ONDANSETRON INJ 2 MG/ML 2 ML VIAL IV PRN (14:29)
--- NOTE | 2022-03-25 14:44 | History & Physical Report ---
Date of Service March 25, 2022 Assessment & Plan (1) Stroke-like symptom: Plan: 86 yo male with right sided weakness. Concern over a possible stroke. Obtained CTA of head and neck:negative. will check MR brain will consult neurology (2) Urinary tract infection: Plan: exchanged barker catheter. will continue IV antibiotics. (3) Hyponatremia: Plan: will monitor sodium. (4) Urinary retention: Plan: patient has chronic barker cathter, had appoitnment to try to remove cathter. (5) Hypercholesterolemia: Plan: resume home meds (6) Cardiomyopathy, ischemic: Plan: Chronic ischemic cardiomyopathy patient does not appear to be in acute CHF. History of Present Illness Chief Complaint: right sided weakness Primary Care Provider: Jorge Owens, III, TAILINGS MAN 86 yo male with history of idiopathic polyneuropathy and severe lumbar spinal stenosis reports having right sided weakness in his right upper and lower extremity. He noticed this on Wednesday, when he ambulated, this only lasted for a short period. This occurred when he was ambulatinfg in his house. Patient denies any dizziness or orthostasis. Patient reports that his symptoms returned this AM where he was having difficul ty ambulating to the kitchen and he required his walker. He states he normally does not use the walker. He reported he was going to pass out. He reports his symptoms were present today, which prompted him to come to the ER. Allergies Allergy/AdvReac Type Severity Reaction Status Date / Time meloxicam AdvReac Mild nausea Verified 03/25/22 15:07 Home Medications Medication Instructions Recorded Confirmed Type aspirin 81 mg tablet,delayed 81 mg PO HS 12/17/18 03/25/22 History release coQ10 (ubiquinol) 100 mg capsule 200 mg PO HS 12/17/18 03/25/22 History multivitamin 1 tab PO HS 12/17/18 03/25/22 History nitroglycerin 0.4 mg sublingual 0.4 mg sublingual UD PRN chest 05/22/20 03/25/22 Rx tablet (Nitrostat) pain #30 tabs denosumab 60 mg/mL subcutaneous 60 mg subcut .Q6M 06/05/21 03/25/22 History syringe (Prolia) atorvastatin 80 mg tablet 80 mg PO QAM #90 tabs 07/10/21 03/25/22 Rx ezetimibe 10 mg tablet 10 mg PO QAM 07/28/21 03/25/22 History carvedilol 12.5 mg tablet 12.5 mg PO BID #90 tabs 09/19/21 03/25/22 Rx levomefolate calcium 1 tab PO DIRECTED 11/20/21 03/25/22 History spironolactone 25 mg tablet 25 mg PO QAM #90 tabs 11/26/21 03/25/22 Rx (Aldactone) ketoconazole 2 % shampoo 1 applic topical WK 11/28/21 03/25/22 History sacubitril 97 mg-valsartan 103 mg See Rx Instructions .Route .COMPLEX 11/28/21 03/25/22 History tablet (Entresto) gabapentin 300 mg capsule 300 mg PO HS #30 caps 12/22/21 03/25/22 Rx magnesium oxide 400 mg (241.3 mg 400 mg PO BID #180 tabs 12/25/21 03/25/22 Rx magnesium) tablet tamsulosin 0.4 mg capsule 0.4 mg PO HS #30 caps 01/22/22 03/25/22 Rx lactulose 10 gram/15 mL (15 mL) 10 g (15 mL) PO DAILY PRN 01/23/22 03/25/22 Rx oral solution constipation #600 mL bupropion HCl 100 mg tablet,12 hr 100 mg PO BID #180 ea 03/09/22 03/25/22 Rx sustained-release (Wellbutrin SR) famotidine 40 mg tablet (Pepcid) 40 mg PO BID 03/11/22 03/25/22 History Past Med/Surg History Medical History CAD (coronary artery disease) Cardiomyopathy, ischemic Depression GERD (gastroesophageal reflux disease) controlled Hiatal hernia History of adenocarcinoma of prostate History of basal cell carcinoma removed History of squamous cell carcinoma removed Hyperlipidemia Hypertension IVCD (intraventricular conduction defect) follows with Dr. Veronica Myocardial Infarction 1984: CABG 2014: stents Nephrolithiasis Neuropathy of both feet Osteoarthritis Osteoporosis Pulmonary embolism Post-op prostate surgery (1999) Sleep apnea CPAP Spinal stenosis Surgical History H/O cataract extraction bilat History of appendectomy History of colonoscopy History of coronary artery bypass graft x 6 (~1983) 1984 > follows with Dr. Veronica History of esophagogastroduodenoscopy (EGD) History of hernia repair History of lithotripsy (~2012) History of prostatectomy (~1999) hx of cancer> no radiation History of tonsillectomy and adenoidectomy History of tooth extraction Status post arterial stent 4 stents total 2005, 2014 Family History Mother , age 86 of heart issues Myocardial infarction Hypertension Heart disease Father , age 88 of heart issues Myocardial infarction Prostate cancer Hypertension Heart disease Brother Myocardial infarction Lung cancer Hypertension Heart disease Sister Hypertension Heart disease Other No family history of adverse response to anesthesia No family history of bleeding disorder Denies family history of Colon cancer Ovarian cancer Breast cancer Social History Smoking Status: Former smoker Tobacco Type: Cigarettes Age Started Using Tobacco: 18; Age Quit Using Tobacco: 27; packs per day: 2; Smoking End Date: 1962; Second Hand Exposure: No; Hx Alcohol Use: No Hx Substance Use: No Preferred Language: Yakut Communication Ability: Effective Visual Impairment: Limited Hearing Ability: Normal Spa Director/Finance Required: No Beliefs That Will Affect Care: None marital status: Current Living Situation: Spouse current occupational status: retired 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) How many Children do You have: 1 Other Information That Helps Us Care for You: No Feels Safe at Home: Yes Safety Concerns: Feels Safe At This Time Childhood Exposure to Second-Hand Smoke: No caffeine: No during the past year weight has: remained stable Dental Care, Regularly: Yes Physical Activity Frequency: Does not Exercise Seatbelt Use: never Sunscreen Use: No Assistive Devices: Cane and Walker Assistive Devices Comment: Reading glasses Review of Systems Review of Systems: Constitutional: No fever/chills, fatigue, myalgias, anorexia, night sweats Eyes: No diplopia, no worsening or blurred vision ENT: normal hearing, no trouble swallowing Respiratory: No cough, sputum, or change in baseline BENEDICT Cardiovascular: No chest pain, tightness or palpitations Abdomen: No pain, nausea, vomiting, diarrhea or constipation : urinary retention with leakage; Denies dysuria, hematuria Musculoskeletal: b/l leg swelling x weeks with 5lb weight gain over past month; no joint pain, calf pain Neurologic: No weakness, numbness/tingling, or balance problems Psychiatric: No anxiety or depression Skin: No rash or itch Physical Exam Physical Exam: General: awake, alert, no apparent distress Head: Normocephalic, atraumatic ENT: PERRL, EOMI, no pharyngeal exudate, mucous membranes moist Chest: Clear to auscultation, on room air, no adventitious breath sounds Cardiac: Regular rate and rhythm, no murmur, no JVD, normal peripheral pulses, good capillary refill Abdominal: TTP in LUQ, b/l LQ/suprapubic region without rebound or guarding; NABS x 4 quadrants Extremities: decreased sensation at pt's baseline; calfs nontender to palpation Psych: Normal mood and affect Neuro: AAO x 3, strength intact bilaterally and rated 5/5, no motor deficits, speech is clear, no peripheral sensory deficits Skin: no rash or erythema Results & Data Results & Data ([facility]) Vital Signs (Past 12 Hours) Vital Signs Temp Pulse Pulse Resp BP BP Pulse Ox 03/25/22 14:00 66 23 98 03/25/22 14:00 139/73 03/25/22 13:30 65 23 98 03/25/22 13:30 130/64 03/25/22 13:00 68 22 98 03/25/22 13:00 132/75 03/25/22 12:00 66 22 97 03/25/22 12:00 132/72 03/25/22 11:30 122/65 03/25/22 11:30 64 21 97 03/25/22 11:01 71 23 99 03/25/22 11:01 133/63 03/25/22 10:30 62 20 96 03/25/22 10:30 111/61 03/25/22 10:00 63 20 97 03/25/22 10:00 118/62 03/25/22 09:45 65 16 98/59 L 97 03/25/22 09:44 03/25/22 08:53 36.8 C 88 18 91/57 L 99 O2 Del Method 03/25/22 14:00 Room Air 03/25/22 14:00 03/25/22 13:30 Room Air 03/25/22 13:30 03/25/22 13:00 Room Air 03/25/22 13:00 03/25/22 12:00 Room Air 03/25/22 12:00 03/25/22 11:30 03/25/22 11:30 Room Air 03/25/22 11:01 Room Air 03/25/22 11:01 03/25/22 10:30 Room Air 03/25/22 10:30 03/25/22 10:00 Room Air 03/25/22 10:00 03/25/22 09:45 Room Air 03/25/22 09:44 Room Air 03/25/22 08:53 Room Air PG Care Time/CCT Total # of Minutes Spent Total Time Spent with Patient: Total time spent is greater than 50% in coordination of care (as documented) at patient's floor/unit and/or counseling patient: Coding Level of Care Code 38561 Initial Inpt Care Lvl 3 Diagnoses Stroke-like symptom R29.90 Urinary tract infection N39.0 Hematuria presence: without hematuria Urinary tract infection type: site unspecified Hyponatremia E87.1 Urinary retention R33.9 Hypercholesterolemia E78.00 Cardiomyopathy, ischemic I25.5 (1) Urinary tract infection Hematuria presence: without hematuria Urinary tract infection type: site unspecified Qualified Code(s): N39.0 - Urinary tract infection, site not specified
[2022-03-25] MEDS ORDERED: NITROGLYCERIN SL 0.4 MG/TAB TAB SL PRN (14:45)
[2022-03-25] MEDS ORDERED: LACTULOSE SYRUP 20 GM/30 ML UDC PO PRN (16:49)
--- NOTE | 2022-03-25 17:58 | Magnetic Resonance Report ---
MR brain wo con HISTORY: 86 years-old Male stroke like symptoms acute strokelike symptoms COMPARISON: Head CT of same day, brain MRI 09/09/2021 TECHNIQUE: Multiplanar multisequence MRI of the brain was obtained without the use of IV contrast. FINDINGS: Bleach Tester localizer images demonstrate no gross extracranial abnormality. There is no restricted diffusio n to suggest acute or subacute infarct. The midline structures appear unremarkable with advanced dege nerative changes of the cervical spine. Involutional changes with mild ex vacuo ventricular megaly. Moderate T2/FLAIR hyperintense foci noted throughout the white matter. No acute intracranial hemorrhage, midline shift, abnormal extra axial c ollection, hydrocephalus or intracranial mass. Cerebral venous sinuses and major arterial flow voids appear patent. Prior bilateral lens repair. The skull and soft tissues are unremarkable. Mild mucosal thickening of the paranasal sinuses with leftward bowing and spurring of the nasal septum. IMPRESSION: 1. No acute intracranial abnormality. No acute or subacute infarct. 2. Involutional changes with chronic microvascular ischemic disease. ACT 112: Negative or not required by law. The above report was generated using voice recognition software. It may contain grammatical, syntax o r spelling errors. Electronically signed by: Antolin Banegas M.D. 03/25/2022 5:57 PM
[2022-03-25] MEDS: ENOXAPARIN INJ 40 MG/0.4 ML SYR SQ SCH (18:26)
[2022-03-25 19:01] LABS: Appearance Urine Clear (Clear); Bacteria Urine Automated Negative (Negative); Bilirubin Urine Negative (Negative); Blood Urine Trace (Negative); Color Urine Yellow; Epithelial Cell Urine Auto 0-5 /lpf (0-5); Glucose Urine UA Negative (Negative); Ketones Urine Negative (Negative); Leukocyte Esterase Urine 2+ (Negative); Nitrite Urine Positive (Negative); Specific Gravity Urine 1.032 (1.000-1.030); Urobilinogen Urine Negative (Negative); WBC Urine Automated >30 /hpf (0-5)
[2022-03-25 19:04] LABS: Protein Urine Trace (Negative)
[2022-03-25] MEDS: TAMSULOSIN HCL 0.4 MG CAP PO SCH (20:05)
[2022-03-25] MEDS: GABAPENTIN 300 MG CAP PO SCH (20:05)
[2022-03-25] MEDS: buPROPion SR 100 MG TABCR PO SCH (20:05)
[2022-03-25] MEDS: MULTIVITAMIN TAB PO SCH (20:05)
[2022-03-25] MEDS: carvediloL 12.5 MG TAB PO SCH (20:05)
[2022-03-25] MEDS: MAGNESIUM OXIDE 400 MG TAB PO SCH (20:05)
[2022-03-25] MEDS: VALSARTAN/SACUBITRIL 103/97MG TAB PO SCH (20:05)
[2022-03-25] MEDS ORDERED: ASPIRIN 81 MG ECTAB PO SCH (21:00)
[2022-03-26 07:43] LABS: Creatinine Clr Calc Pharmacy 35.1 ml/min; Est GFR (African American) 45.9 ml/min; Est GFR (Non-African American) 39.6 ml/min
[2022-03-26] MEDS: EZETIMIBE 10 MG TABLET PO SCH (08:40)
[2022-03-26] MEDS: VALSARTAN/SACUBITRIL 51/49 MG TAB PO SCH (08:40)
[2022-03-26] MEDS: buPROPion SR 100 MG TABCR PO SCH ×2 (08:40→21:40)
[2022-03-26] MEDS: SPIRONOLACTONE 25 MG TAB PO SCH (08:40)
[2022-03-26] MEDS: FAMOTIDINE 20 MG TAB PO SCH (08:40)
[2022-03-26] MEDS: MAGNESIUM OXIDE 400 MG TAB PO SCH ×2 (08:40→21:39)
[2022-03-26] MEDS: carvediloL 12.5 MG TAB PO SCH ×2 (08:40→21:41)
--- NOTE | 2022-03-26 08:40 | Neurology Consultation ---
Date of Consultation March 26, 2022 Assessment & Plan (1) TIA (transient ischemic attack): (2) Idiopathic polyneuropathy: (3) Spinal stenosis of lumbar region at multiple levels: Plan 86-year-old male with a history of severe multilevel lumbar spinal stenosis, idiopathic polyneuropathy, presenting with transient right-sided weakness and associated vision disturbance to the right visual field. Symptoms potentially consistent with a TIA localizing to the left cerebral hemisphere. No significant vascular lesion identified on CT angiography of the head and neck. No evidence of acute or subacute infarct on brain MRI. Patient has been taking daily low-dose aspirin and atorvastatin 80 mg/day. Stroke risk factors of this patient include hypercholesterolemia and hypertension although these issues appear to be well controlled. I would recommend adding clopidogrel 75 mg/day to patient's medication regimen for the next 3 weeks, followed by transition to clopidogrel monotherapy with discontinuation of daily low-dose aspirin at that time. Continue with atorvastatin at the current dosage. Would recommend 2 to 4-week mobile outpatient cardiac telemetry. I do not think additional evaluation for patient's spinal stenosis and idiopathic polyneuropathy are necessary at this time. No further immediate recommendations. Additional outpatient neurology follow-up does not appear to be necessary. (Has seen Dr. Nance and Didi Martel previously for polyneuropathy and lumbar spinal stenosis.) History of Present Illness Reason for Consultation: Strokelike symptoms Requesting Physician: Steven Huston Attending Physician: Steven Huston History of Present Illness The patient is an 86-year-old male with a chief complaint of intermittent right- sided weakness, arm and leg, that began this past Wednesday. He also complained of perceiving a dark spot to the right visual field. The symptoms have resolved and have not recurred. He has a history of severe lumbar spinal stenosis and idiopathic polyneuropathy for which he has previously followed with Dr. Nance and Didi Martel, [facility] neurology, last seen last year. He has chronic gait dysfunction due to these issues. He has undergone comprehensive neuro imaging in the context of this current hospitalization including CT angiography of the head and neck and brain MRI. There is no evidence of vascular lesion or acute or subacute infarct. There is aged related atrophy and microvascular ischemic disease on MRI. I independently reviewed these images. I also reviewed a lumbar spine MRI completed this past August that revealed severe degenerative changes resulting in severe central canal stenosis at L3-4, and L4- 5. An EMG completed with Dr. Nance in November 2020 was remarkable for a a sensorimotor polyneuropathy of mixed pathology as well as a very mild chronic active right S1 radiculopathy. This morning, the patient indicates that he feels like his usual self and has not had a recurrence of his right-sided weakness or vision loss. Allergies Allergy/AdvReac Type Severity Reaction Status Date / Time meloxicam AdvReac Mild nausea Verified 03/25/22 15:07 Home Medications Medication Instructions Recorded Confirmed Type aspirin 81 mg tablet,delayed 81 mg PO HS 12/17/18 03/25/22 History release coQ10 (ubiquinol) 100 mg capsule 200 mg PO HS 12/17/18 03/25/22 History multivitamin 1 tab PO HS 12/17/18 03/25/22 History nitroglycerin 0.4 mg sublingual 0.4 mg sublingual UD PRN chest 05/22/20 03/25/22 Rx tablet (Nitrostat) pain #30 tabs denosumab 60 mg/mL subcutaneous 60 mg subcut .Q6M 06/05/21 03/25/22 History syringe (Prolia) atorvastatin 80 mg tablet 80 mg PO QAM #90 tabs 07/10/21 03/25/22 Rx ezetimibe 10 mg tablet 10 mg PO QAM 07/28/21 03/25/22 History carvedilol 12.5 mg tablet 12.5 mg PO BID #90 tabs 09/19/21 03/25/22 Rx levomefolate calcium 1 tab PO DIRECTED 11/20/21 03/25/22 History spironolactone 25 mg tablet 25 mg PO QAM #90 tabs 11/26/21 03/25/22 Rx (Aldactone) ketoconazole 2 % shampoo 1 applic topical WK 11/28/21 03/25/22 History sacubitril 97 mg-valsartan 103 mg See Rx Instructions .Route .COMPLEX 11/28/21 03/25/22 History tablet (Entresto) gabapentin 300 mg capsule 300 mg PO HS #30 caps 12/22/21 03/25/22 Rx magnesium oxide 400 mg (241.3 mg 400 mg PO BID #180 tabs 12/25/21 03/25/22 Rx magnesium) tablet tamsulosin 0.4 mg capsule 0.4 mg PO HS #30 caps 01/22/22 03/25/22 Rx lactulose 10 gram/15 mL (15 mL) 10 g (15 mL) PO DAILY PRN 01/23/22 03/25/22 Rx oral solution constipation #600 mL bupropion HCl 100 mg tablet,12 hr 100 mg PO BID #180 ea 03/09/22 03/25/22 Rx sustained-release (Wellbutrin SR) famotidine 40 mg tablet (Pepcid) 40 mg PO BID 03/11/22 03/25/22 History Patient History Medical History CAD (coronary artery disease) Cardiomyopathy, ischemic Depression GERD (gastroesophageal reflux disease) controlled Hiatal hernia History of adenocarcinoma of prostate History of basal cell carcinoma removed History of squamous cell carcinoma removed Hyperlipidemia Hypertension IVCD (intraventricular conduction defect) follows with Dr. Veronica Myocardial Infarction 1984: CABG 2015: stents Nephrolithiasis Neuropathy of both feet Osteoarthritis Osteoporosis Pulmonary embolism Post-op prostate surgery (1999) Sleep apnea CPAP Spinal stenosis Surgical History H/O cataract extraction bilat History of appendectomy History of colonoscopy History of coronary artery bypass graft x 6 (~1983) 1983 > follows with Dr. Veronica History of esophagogastroduodenoscopy (EGD) History of hernia repair History of lithotripsy (~2012) History of prostatectomy (~1999) hx of cancer> no radiation History of tonsillectomy and adenoidectomy History of tooth extraction Status post arterial stent 4 stents total 2014 Family History Mother , age 86 of heart issues Myocardial infarction Hypertension Heart disease Father , age 88 of heart issues Myocardial infarction Prostate cancer Hypertension Heart disease Brother Myocardial infarction Lung cancer Hypertension Heart disease Sister Hypertension Heart disease Other No family history of adverse response to anesthesia No family history of bleeding disorder Denies family history of Colon cancer Ovarian cancer Breast cancer Social History Smoking Status: Former smoker Tobacco Type: Cigarettes Age Started Using Tobacco: 18; Age Quit Using Tobacco: 27; packs per day: 2; Smoking End Date: 1962; Second Hand Exposure: No; Hx Alcohol Use: No Hx Substance Use: No Preferred Language: Surinamese Communication Ability: Effective Visual Impairment: Limited Hearing Ability: Normal Forensic Photographer Required: No Beliefs That Will Affect Care: None marital status: Current Living Situation: Spouse current occupational status: retired 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) How many Children do You have: 1 Other Information That Helps Us Care for You: No Feels Safe at Home: Yes Safety Concerns: Feels Safe At This Time Childhood Exposure to Second-Hand Smoke: No caffeine: No during the past year weight has: remained stable Dental Care, Regularly: Yes Physical Activity Frequency: Does not Exercise Seatbelt Use: never Sunscreen Use: No Assistive Devices: Cane, Glasses and Walker Assistive Devices Comment: Reading glasses Review of Systems Constitutional: no fever and no chills Eyes: as per Subjective / HPI Ear, Nose, Mouth, Throat: no hearing loss Respiratory: no cough and no dyspnea Cardiovascular: no chest pain and no palpitations Gastrointestinal: no nausea and no vomiting Genitourinary: no urinary incontinence Musculoskeletal: + back pain; no myalgia Integumentary: no rash and no lesions Neurologic: as per Subjective / HPI Psychiatric: no depression and no anxiety Hematologic / Lymphatic: no easy bleeding and no easy bruising Exam (Neuro) Constitutional: well developed; no acute distress Eyes: normal visual car by confrontation, PERRL and EOM intact bilaterally; no fundoscopic abnormality and no papilledema Cardiovascular: Vessels: normal carotid upstroke; no carotid bruit Neurologic: Oriented to:: Person, Place and Time Memory: Short Term Intact and Remote Intact Attention: Span Intact and Concentration Intact Speech Fluency: negative Dysarthria or Dysfluency Speech Aphasia: negative Aphasia Fund of Knowledge: Current Events, Past History and Vocabulary Cranial Nerves: Normal II, III, IV, , V, VII, VIII, IX, X, XI and XII Motor Strength: Normal Lower Extremities and Normal Upper Extremities Motor Tone: Normal Lower Extremities and Normal Upper Extremities Muscle Bulk/Involuntary Movements: No Involuntary Movements; negative Muscle Atrophy Sensation: negative Light Touch Intact, Pain/Temperature Intact, Vibration Intact or Proprioception Intact Coordination: negative Finger-Nose Abnormal or Heel- Conde Abnormal Deep Tendon Reflexes: Rt Triceps: 2+, Lt Triceps: 2+, Rt B iceps: 2+, Lt Biceps: 2+, Rt Brachioradialis: 2+, Lt Brachioradialis: 2+, Rt Patellar: 2+, Lt Patellar: 2+, Rt Ankle: 1+ and Lt Ankle: 1+ Special Tests: negative Babinski Present Details: Gait cannot be tested in the context of patient's current neurological status. Results & Data ([facility]) Vital Signs (Past 12 Hours) Vital Signs Temp Pulse Pulse Resp BP Pulse Ox Pulse Ox 03/26/22 07:56 03/26/22 06:49 59 L 03/26/22 06:43 36.8 C 64 18 106/67 97 03/26/22 04:00 95 03/25/22 22:23 65 03/26/22 03:49 36.6 C 64 16 118/61 95 03/25/22 22:42 36.8 C 65 16 122/70 95 O2 Del Method O2 Del Method 03/26/22 07:56 Room Air 03/26/22 06:49 03/26/22 06:43 Room Air 03/26/22 04:00 Room Air 03/25/22 22:23 03/26/22 03:49 Room Air 03/25/22 22:42 Room Air Laboratory Results WBC 7.92, hemoglobin 12.9, hematocrit 37.9, platelet count 265, sodium 134, potassium 4.7, BUN 24, creatinine 1.56, glucose 122, AST 15, ALT 18, lipid panel from this past January reviewed, triglycerides 106, cholesterol 81, LDL 20, VLDL 21, HDL 40 Diagnostic Findings CTA of the head and neck and brain MRI are as described in the history of present illness. I independently reviewed these images. An ECG revealed a normal sinus rhythm, 70 bpm. PG Care Time/CCT Total # of Minutes Spent Total Time Spent with Patient: Total time spent is greater than 50% in coordination of care (as documented) at patient's floor/unit and/or counseling patient: Coding Level of Care Code 71742 Initial Inpt Care Lvl 3 Diagnoses TIA (transient ischemic attack) G45.9 Idiopathic polyneuropathy G60.9 Spinal stenosis of lumbar region at multiple levels M48.061
[2022-03-26] MEDS: ATORVASTATIN 40 MG TAB PO SCH (08:41)
[2022-03-26] MEDS: ASPIRIN 81 MG ECTAB PO SCH (10:18)
[2022-03-26 11:53] LABS: Hematocrit (blood only) 35.3 % (40.1-51.0); Mean Corpuscular Hemoglobin 33.2 pg (25.0-34.0); Mean Corpuscular Volume 97.8 fL (80.0-100.0); Mean Platelet Volume 10.1 fL (9.4-12.4); Platelet Count 236 K/uL (130-400); RDW Coefficient of Variation 12.8 % (11.5-14.5); Red Blood Count 3.61 M/uL (4.63-6.08); White Blood Count 8.63 K/ul (4.8-10.8)
[2022-03-26 12:19] LABS: BUN Creatinine Ratio 14.6 (10-20); Calcium 8.9 mg/dl (8.5-10.1); Creatinine Clr Calc Pharmacy 36.3 ml/min; Est GFR (African American) 47.8 ml/min; Est GFR (Non-African American) 41.2 ml/min; Potassium 4.7 mmol/L (3.5-5.1)
[2022-03-26] MEDS: cefTRIAXone SODIUM 2,000 MG in DEXTROSE 5% 50 ML IV SCH (12:25)
[2022-03-26] MEDS ORDERED: SODIUM CHLORIDE 0.9% 1000ML 1,000 ML IV SCH (14:45)
[2022-03-26] MEDS: ENOXAPARIN INJ 40 MG/0.4 ML SYR SQ SCH (17:51)
[2022-03-26] MEDS: GABAPENTIN 300 MG CAP PO SCH (21:39)
[2022-03-26] MEDS: MULTIVITAMIN TAB PO SCH (21:39)
[2022-03-26] MEDS: TAMSULOSIN HCL 0.4 MG CAP PO SCH (21:40)
[2022-03-26] MEDS: VALSARTAN/SACUBITRIL 103/97MG TAB PO SCH (21:41)
--- NOTE | 2022-03-26 22:30 | Hospitalist Progress Note ---
Date of Service March 26, 2022 Assessment & Plan (1) Stroke-like symptom: Plan: 86 yo male with right sided weakness. Concern over a possible stroke. Obtained CTA of head and neck:negative. MR brain is negative. appreciate input from Neurology. This appears to be a TIA. will monitor. (2) Urinary tract infection: Plan: exchanged barker catheter. will continue IV antibiotics. d/w Urology, will reschedule voiding trial. (3) Hyponatremia: Plan: will monitor sodium. (4) Urinary retention: Plan: patient has chronic barker cathter, had appoitnment to try to remove cathter. (5) Hypercholesterolemia: Plan: resume home meds (6) Cardiomyopathy, ischemic: Plan: Chronic ischemic cardiomyopathy patient does not appear to be in acute CHF. Admission and Anticipated Discharge Date Admission Date: March 25, 2022 Subjective Patient reports no new symptoms. Review of Systems Review of Systems: All systems reviewed & are unremarkable except as noted in HPI & below Physical Exam Physical Exam: General: awake, alert, no apparent distress Head: Normocephalic, atraumatic ENT: PERRL, EOMI, no pharyngeal exudate, mucous membranes moist Chest: Clear to auscultation, on room air, no adventitious breath sounds Cardiac: Regular rate and rhythm, no murmur, no JVD, normal peripheral pulses, good capillary refill Abdominal: TTP in LUQ, b/l LQ/suprapubic region without rebound or guarding; NABS x 4 quadrants Extremities: decreased sensation at pt's baseline; calfs nontender to palpation Psych: Normal mood and affect Neuro: AAO x 3, strength intact bilaterally and rated 5/5, no motor deficits, speech is clear, no peripheral sensory deficits Skin: no rash or erythema Results & Data Results & Data ([facility]) Vital Signs (Past 12 Hours) Vital Signs Temp Pulse Pulse Resp BP Pulse Ox O2 Del Method 03/26/22 19:14 37.0 C 62 18 113/67 96 Room Air 03/26/22 15:00 66 03/26/22 15:18 37.0 C 65 19 108/62 95 Room Air 03/26/22 10:56 36.7 C 67 18 104/60 95 Room Air PG Care Time/CCT Total # of Minutes Spent Total Time Spent with Patient: Total time spent is greater than 50% in coordination of care (as documented) at patient's floor/unit and/or counseling patient: Coding Level of Care Code 99836 Subseq Hosp Care Lvl 3 Diagnoses Stroke-like symptom R29.90 Urinary tract infection N39.0 Hematuria presence: without hematuria Urinary tract infection type: site unspecified Hyponatremia E87.1 Urinary retention R33.9 Hypercholesterolemia E78.00 Cardiomyopathy, ischemic I25.5 Time Spent (min) 35 (1) Urinary tract infection Hematuria presence: without hematuria Urinary tract infection type: site unspecified Qualified Code(s): N39.0 - Urinary tract infection, site not specified
[2022-03-27 07:18] LABS: Hematocrit (blood only) 34.8 % (40.1-51.0); Hemoglobin 11.9 g/dl (14.0-18.0); Mean Corpuscular Hemoglobin 33.4 pg (25.0-34.0); Mean Corpuscular Hgb Conc 34.2 g/dL (32.0-36.0); Mean Corpuscular Volume 97.8 fL (80.0-100.0); Platelet Count 212 K/uL (130-400); RDW Coefficient of Variation 12.7 % (11.5-14.5); Red Blood Count 3.56 M/uL (4.63-6.08); White Blood Count 8.47 K/ul (4.8-10.8)
[2022-03-27 07:50] LABS: BUN Creatinine Ratio 15.8 (10-20); Creatinine Clr Calc Pharmacy 37.5 ml/min; Est GFR (African American) 49.8 ml/min; Est GFR (Non-African American) 42.9 ml/min; Potassium 4.5 mmol/L (3.5-5.1)
[2022-03-27] MEDS: FAMOTIDINE 20 MG TAB PO SCH (08:02)
[2022-03-27] MEDS: ATORVASTATIN 40 MG TAB PO SCH (08:02)
[2022-03-27] MEDS: EZETIMIBE 10 MG TABLET PO SCH (08:02)
[2022-03-27] MEDS: SPIRONOLACTONE 25 MG TAB PO SCH (08:02)
[2022-03-27] MEDS: buPROPion SR 100 MG TABCR PO SCH ×2 (08:03→21:32)
[2022-03-27] MEDS: MAGNESIUM OXIDE 400 MG TAB PO SCH ×2 (08:03→21:33)
[2022-03-27] MEDS: ASPIRIN 81 MG ECTAB PO SCH (08:03)
[2022-03-27] MEDS: carvediloL 12.5 MG TAB PO SCH ×2 (08:03→21:33)
[2022-03-27] MEDS: VALSARTAN/SACUBITRIL 51/49 MG TAB PO SCH (08:03)
[2022-03-27] MEDS: cefTRIAXone SODIUM 2,000 MG in DEXTROSE 5% 50 ML IV SCH (14:00)
[2022-03-27] MEDS: ENOXAPARIN INJ 40 MG/0.4 ML SYR SQ SCH (18:21)
[2022-03-27] MEDS ORDERED: VALSARTAN/SACUBITRIL 51/49 MG TAB PO SCH (21:00)
[2022-03-27] MEDS: MULTIVITAMIN TAB PO SCH (21:32)
[2022-03-27] MEDS: GABAPENTIN 300 MG CAP PO SCH (21:32)
[2022-03-27] MEDS: VALSARTAN/SACUBITRIL 26/24MG TAB PO SCH (21:32)
[2022-03-27] MEDS: TAMSULOSIN HCL 0.4 MG CAP PO SCH (21:33)
--- NOTE | 2022-03-27 22:43 | Hospitalist Progress Note ---
Date of Service March 27, 2022 Assessment & Plan (1) Stroke-like symptom: Plan: 86 yo male with right sided weakness. Concern over a possible stroke. Obtained CTA of head and neck:negative. MR brain is negative. appreciate input from Neurology. This appears to be a TIA. Patient requires rehab. Hopefully placement tomorrow. (2) Urinary tract infection: Plan: exchanged barker catheter. will continue IV antibiotics. d/w Urology, will reschedule voiding trial. (3) Hyponatremia: Plan: will monitor sodium. (4) Urinary retention: Plan: patient has chronic barker cathter, had appoitnment to try to remove cathter. (5) Hypercholesterolemia: Plan: resume home meds (6) Cardiomyopathy, ischemic: Plan: Chronic ischemic cardiomyopathy patient does not appear to be in acute CHF. Admission and Anticipated Discharge Date Admission Date: March 25, 2022 Subjective 86 yo male reports feeling well. He has no new complaints. Review of Systems Review of Systems: All systems reviewed & are unremarkable except as noted in HPI & below Physical Exam Physical Exam: General: awake, alert, no apparent distress Head: Normocephalic, atraumatic ENT: PERRL, EOMI, no pharyngeal exudate, mucous membranes moist Chest: Clear to auscultation, on room air, no adventitious breath sounds Cardiac: Regular rate and rhythm, no murmur, no JVD, normal peripheral pulses, good capillary refill Abdominal: TTP in LUQ, b/l LQ/suprapubic region without rebound or guarding; NABS x 4 quadrants Extremities: decreased sensation at pt's baseline; calfs nontender to palpation Psych: Normal mood and affect Neuro: AAO x 3, strength intact bilaterally and rated 5/5, no motor deficits, speech is clear, no peripheral sensory deficits Skin: no rash or erythema Results & Data Results & Data ([facility]) Vital Signs (Past 12 Hours) Vital Signs Temp Pulse Resp BP BP Pulse Ox O2 Del Method 03/27/22 22:29 36.8 C 66 16 136/74 96 Room Air 03/27/22 20:08 36.5 C 67 18 152/76 H 99 Room Air 03/27/22 15:40 36.6 C 67 20 124/67 96 Room Air 03/27/22 11:51 36.5 C 68 18 122/75 96 Room Air PG Care Time/CCT Total # of Minutes Spent Total Time Spent with Patient: Total time spent is greater than 50% in coordination of care (as documented) at patient's floor/unit and/or counseling patient: Coding Level of Care Code 64108 Subseq Hosp Care Lvl 2 Diagnoses Stroke-like symptom R29.90 Urinary tract infection N39.0 Hematuria presence: without hematuria Urinary tract infection type: site unspecified Hyponatremia E87.1 Urinary retention R33.9 Hypercholesterolemia E78.00 Cardiomyopathy, ischemic I25.5 Time Spent (min) 25 (1) Urinary tract infection Hematuria presence: without hematuria Urinary tract infection type: site unspecified Qualified Code(s): N39.0 - Urinary tract infection, site not specified
[2022-03-28 07:41] LABS: Creatinine Clr Calc Pharmacy 41.5 ml/min; Est GFR (African American) 56.2 ml/min; Est GFR (Non-African American) 48.5 ml/min
[2022-03-28] MEDS: ASPIRIN 81 MG ECTAB PO SCH (08:18)
[2022-03-28] MEDS: VALSARTAN/SACUBITRIL 26/24MG TAB PO SCH ×2 (08:18→20:14)
[2022-03-28] MEDS: buPROPion SR 100 MG TABCR PO SCH ×2 (08:18→20:14)
[2022-03-28] MEDS: EZETIMIBE 10 MG TABLET PO SCH (08:19)
[2022-03-28] MEDS: SPIRONOLACTONE 25 MG TAB PO SCH (08:19)
[2022-03-28] MEDS: MAGNESIUM OXIDE 400 MG TAB PO SCH ×2 (08:19→20:14)
[2022-03-28] MEDS: ATORVASTATIN 40 MG TAB PO SCH (08:19)
[2022-03-28] MEDS: carvediloL 12.5 MG TAB PO SCH ×2 (08:19→20:16)
[2022-03-28] MEDS: FAMOTIDINE 20 MG TAB PO SCH (08:19)
[2022-03-28] MEDS: cefTRIAXone SODIUM 2,000 MG in DEXTROSE 5% 50 ML IV SCH (13:26)
[2022-03-28] MEDS: ENOXAPARIN INJ 40 MG/0.4 ML SYR SQ SCH (17:04)
[2022-03-28] MEDS: TAMSULOSIN HCL 0.4 MG CAP PO SCH (20:14)
[2022-03-28] MEDS: MULTIVITAMIN TAB PO SCH (20:14)
[2022-03-28] MEDS: GABAPENTIN 300 MG CAP PO SCH (20:14)
--- NOTE | 2022-03-28 22:15 | Hospitalist Progress Note ---
Date of Service March 28, 2022 Assessment & Plan (1) Stroke-like symptom: Plan: possible TIA 86 yo male with right sided weakness. Initially there was concern over a possible stroke. Obtained CTA of head and neck:negative. MR brain is negative. appreciate input from Neurology. GIven that his symptoms resolved, this appears to be a TIA. Patient is now awaiting placement for rehab. Hopefully placement om 01/27 as he does not need placement. (2) Urinary tract infection: Plan: exchanged barker catheter. will continue IV antibiotics. d/w Urology, will reschedule voiding trial as an outpatient. 03/29 will be 5th dose of IV antibiotics. (3) Hyponatremia: Plan: will monitor sodium. (4) Urinary retention: Plan: patient has chronic barker cathter, had appoitnment to try to remove cathter. (5) Hypercholesterolemia: Plan: resume home meds (6) Cardiomyopathy, ischemic: Plan: Chronic ischemic cardiomyopathy patient does not appear to be in acute CHF. Admission and Anticipated Discharge Date Admission Date: March 25, 2022 Subjective 86 yo male reports no new symptoms. Review of Systems Review of Systems: All systems reviewed & are unremarkable except as noted in HPI & below Physical Exam Physical Exam: General: awake, alert, no apparent distress Head: Normocephalic, atraumatic ENT: PERRL, EOMI, no pharyngeal exudate, mucous membranes moist Chest: Clear to auscultation, on room air, no adventitious breath sounds Cardiac: Regular rate and rhythm, no murmur, no JVD, normal peripheral pulses, good capillary refill Abdominal: TTP in LUQ, b/l LQ/suprapubic region without rebound or guarding; NABS x 4 quadrants Extremities: decreased sensation at pt's baseline; calfs nontender to palpation Psych: Normal mood and affect Neuro: AAO x 3, strength intact bilaterally and rated 5/5, no motor deficits, speech is clear, no peripheral sensory deficits Skin: no rash or erythema Results & Data Results & Data ([facility]) Vital Signs (Past 12 Hours) Vital Signs Temp Pulse Resp BP BP Pulse Ox O2 Del Method 03/28/22 20:15 66 122/75 03/28/22 18:27 37.0 C 69 17 128/67 96 Room Air 03/28/22 15:34 36.8 C 63 18 120/73 96 Room Air 03/28/22 12:13 36.7 C 61 19 119/67 95 Room Air PG Care Time/CCT Total # of Minutes Spent Total Time Spent with Patient: Total time spent is greater than 50% in coordination of care (as documented) at patient's floor/unit and/or counseling patient: Coding Level of Care Code 06997 Subseq Hosp Care Lvl 2 Diagnoses Stroke-like symptom R29.90 Urinary tract infection N39.0 Hematuria presence: without hematuria Urinary tract infection type: site unspecified Hyponatremia E87.1 Urinary retention R33.9 Hypercholesterolemia E78.00 Cardiomyopathy, ischemic I25.5 (1) Urinary tract infection Hematuria presence: without hematuria Urinary tract infection type: site unspecified Qualified Code(s): N39.0 - Urinary tract infection, site not specified
[2022-03-29] MEDS: ATORVASTATIN 40 MG TAB PO SCH (08:32)
[2022-03-29] MEDS: carvediloL 12.5 MG TAB PO SCH (08:33)
[2022-03-29] MEDS: FAMOTIDINE 20 MG TAB PO SCH (08:33)
[2022-03-29] MEDS: buPROPion SR 100 MG TABCR PO SCH ×2 (08:33→20:34)
[2022-03-29] MEDS: SPIRONOLACTONE 25 MG TAB PO SCH (08:33)
[2022-03-29] MEDS: EZETIMIBE 10 MG TABLET PO SCH (08:33)
[2022-03-29] MEDS: VALSARTAN/SACUBITRIL 26/24MG TAB PO SCH ×2 (08:33→20:35)
[2022-03-29] MEDS: ASPIRIN 81 MG ECTAB PO SCH (08:33)
[2022-03-29] MEDS: MAGNESIUM OXIDE 400 MG TAB PO SCH ×2 (08:33→20:33)
[2022-03-29] MEDS: CLOPIDOGREL BISULFATE 75 MG TAB PO SCH (10:37)
--- NOTE | 2022-03-29 12:35 | Hospitalist Progress Note ---
Date of Service March 29, 2022 Assessment & Plan (1) Orthostatic hypotension: Plan: Significant orthostasis which may be cause of his initial stroke like symptoms although these appear to be more localized he also has spinal stenosis and idiopathetic polyneuropathy Orthostasis appears to be ongoing despite significant reduction in his Entresto on 03/26 - 03/27. Unclear definitive reason he is unable to tolerate his usual BP meds but appears he has been having issues with lightheadedness as outpatient so maybe was not tolerating then +/- catheter-associated UTI contributing (although no WBC to suggestive significant infection) Orthostatics repeated today with significant symptoms - 127/71 -> 77/53, daily orthostatics ordered around 9am. TSH with AM labs, Continue on reduced dose of Entresto 1 tab BID, reduce carvedilol 12.5 -> 3.125mg BID and hold spironolactone. (2) Stroke-like symptom: Plan: CVA ruled out Possible TIA TTE not previously performed, ordered today - shows no thrombus or ASD CTA of head and neck: unremarkable MR brain is negative for acute CVA - chronic microvascular ischemic disease. LDL 20 in January - continue atorvastatin and ezetimibe Fasting glucose 83 [03/27], will get HbA1C to complete workup with AM labs Prior neurology consulted recommended clopidogrel +aspirin for 3 weeks then clopidogrel alone, ordered (3) Urinary tract infection: Plan: Catheter associated exchanged barker catheter earlier in admission Continue IV ceftriaxone for 7 days. d/w Urology, will reschedule voiding trial as an outpatient. (4) Urinary retention: Plan: Patient has chronic Barker catheter since TURP, had appointment to try to remove catheter. (5) Hypercholesterolemia: Plan: Continue atorvastatin and ezetimibe (6) Cardiomyopathy, ischemic: Plan: Chronic ischemic cardiomyopathy patient does not appear to be in acute CHF Monitor for hypervolemia while off his usual spironolactone Plan VTE Prophylaxis - Lovenox 40mg SQ daily Diet - heart healthy Disposition - stable for downgrade to med/tele, continued admission due to significant orthostasis Admission and Anticipated Discharge Date Admission Date: March 25, 2022 Subjective Patient remains significantly dizzy/lightheaded on standing up. This is much worse than his baseline lightheadedness described in previous notes. No room spinning sensation. Otherwise he feels at his baseline. Barker catheter in place since previous TURP. He reports not having any suprapubic pain, fever or chills prior to admission. Review of Systems Review of Systems: All systems reviewed & are unremarkable except as noted in Subjective Physical Exam Constitutional: WD/WN, vitals as above Respiratory: normal respiratory effort, lungs clear to auscultation Cardiovascular: RRR, no murmur, no edema Gastrointestinal (Abdomen): normal bowel sounds, soft, nontender, no hepatosplenomegaly Skin: no rashes, warm and dry Neurologic: moves all extremities and awake; no focal motor deficits and not confused Psychiatric: A+Ox3, euthymic affect Results & Data Results & Data ([facility]) Vital Signs (Past 12 Hours) Vital Signs Temp Pulse Resp BP Pulse Ox O2 Del Method 03/29/22 11:37 36.7 C 60 20 107/62 95 Room Air 03/29/22 07:48 36.3 C L 71 18 108/64 95 Room Air 03/29/22 04:46 36.4 C L 63 16 109/61 95 Room Air PG Care Time/CCT Total # of Minutes Spent Total Time Spent with Patient: Total time spent is greater than 50% in coordination of care (as documented) at patient's floor/unit and/or counseling patient: Coding Level of Care Code 21661 Subseq Hosp Care Lvl 2 Diagnoses Orthostatic hypotension I95.1 Stroke-like symptom R29.90 Urinary tract infection N39.0 Hematuria presence: without hematuria Urinary tract infection type: site unspecified Urinary retention R33.9 Hypercholesterolemia E78.00 Cardiomyopathy, ischemic I25.5 (1) Urinary tract infection Hematuria presence: without hematuria Urinary tract infection type: site unspecified Qualified Code(s): N39.0 - Urinary tract infection, site not specified
[2022-03-29] MEDS: cefTRIAXone SODIUM 2,000 MG in DEXTROSE 5% 50 ML IV SCH (14:13)
[2022-03-29] MEDS: ENOXAPARIN INJ 40 MG/0.4 ML SYR SQ SCH (17:10)
[2022-03-29] MEDS: carvediloL 3.125 MG TAB PO SCH (20:33)
[2022-03-29] MEDS: GABAPENTIN 300 MG CAP PO SCH (20:34)
[2022-03-29] MEDS: MULTIVITAMIN TAB PO SCH (20:35)
[2022-03-29] MEDS: TAMSULOSIN HCL 0.4 MG CAP PO SCH (20:35)
[2022-03-29] MEDS ORDERED: carvediloL 6.25 MG TAB PO SCH (21:00)
[2022-03-30 07:17] LABS: Basophils # (auto) 0.03 K/uL (0-0.2); Basophils % (auto) 0.4 %; Eosinophils # (auto) 0.27 K/uL (0-0.50); Eosinophils % (auto) 3.5 %; Hematocrit (blood only) 35.6 % (40.1-51.0); Hemoglobin 12.2 g/dl (14.0-18.0); Immature Granulocytes # (auto) 0.05 K/uL (0.00-0.02); Immature Granulocytes % (auto) 0.7 %; Lymphocytes # (auto) 1.53 K/uL (1.2-3.4); Mean Corpuscular Hemoglobin 33.4 pg (25.0-34.0); Mean Corpuscular Hgb Conc 34.3 g/dL (32.0-36.0); Mean Corpuscular Volume 97.5 fL (80.0-100.0); Mean Platelet Volume 10.1 fL (9.4-12.4); Monocytes # (auto) 1.09 K/uL (0.24-0.82); Monocytes % (auto) 14.2 %; Neutrophils # (auto) 4.68 K/uL (1.4-6.5); Neutrophils % (auto) 61.2 %; Platelet Count 217 K/uL (130-400); RDW Coefficient of Variation 12.6 % (11.5-14.5); RDW Standard Deviation 45.3 fL (36.4-46.3); Red Blood Count 3.65 M/uL (4.63-6.08); White Blood Count 7.65 K/ul (4.8-10.8)
[2022-03-30 07:38] LABS: Anion Gap 5 (3-11); BUN Creatinine Ratio 18.8 (10-20); Blood Urea Nitrogen 25 mg/dl (6-23); C Reactive Protein < 0.50 mg/dl (0-0.5); Calcium 8.3 mg/dl (8.5-10.1); Carbon Dioxide 27 mmol/L (21-32); Chloride 99 mmol/L (98-107); Creatinine Clr Calc Pharmacy 41.2 ml/min; Est GFR (African American) 55.7 ml/min; Est GFR (Non-African American) 48.1 ml/min; Glucose 81 mg/dl (70-99(Fasting)); Potassium 4.4 mmol/L (3.5-5.1); Sodium 131 mmol/L (136-145)
[2022-03-30] MEDS: ATORVASTATIN 40 MG TAB PO SCH (08:25)
[2022-03-30] MEDS: FAMOTIDINE 20 MG TAB PO SCH (08:25)
[2022-03-30] MEDS: CLOPIDOGREL BISULFATE 75 MG TAB PO SCH (08:25)
[2022-03-30] MEDS: carvediloL 3.125 MG TAB PO SCH (08:25)
[2022-03-30] MEDS: VALSARTAN/SACUBITRIL 26/24MG TAB PO SCH (08:25)
[2022-03-30] MEDS: buPROPion SR 100 MG TABCR PO SCH ×2 (08:25→20:51)
[2022-03-30] MEDS: EZETIMIBE 10 MG TABLET PO SCH (08:25)
[2022-03-30] MEDS: MAGNESIUM OXIDE 400 MG TAB PO SCH ×2 (08:25→20:51)
[2022-03-30] MEDS: ASPIRIN 81 MG ECTAB PO SCH (08:25)
--- NOTE | 2022-03-30 08:44 | Hospitalist Progress Note ---
Date of Service March 30, 2022 Assessment & Plan (1) Orthostatic hypotension: Plan: Significant orthostasis which may be cause of his initial stroke like symptoms although these appear to be more localized he also has spinal stenosis and idiopathetic polyneuropathy Orthostasis appears to be ongoing despite significant reduction in his Entresto on 03/26 - 03/27. Unclear definitive reason he is unable to tolerate his usual BP meds but appears he has been having issues with lightheadedness as outpatient so maybe was not tolerating then +/- catheter-associated UTI contributing (although no WBC to suggestive significant infection) Orthostatics repeated with significant symptoms -9. Interestingly he is heart does not compensate for the lower blood pressure. Therefore we will hold his beta-ree and discontinue his Entresto TSH checked and found to be normal (2) Stroke-like symptom: Plan: CVA ruled out Possible TIA TTE - shows no thrombus or ASD CTA of head and neck: unremarkable MR brain is negative for acute CVA - chronic microvascular ischemic disease. LDL 20 in January - continue atorvastatin and ezetimibe Fasting glucose 83 [03/27], will get HbA1C to complete workup with AM labs Prior neurology consulted recommended clopidogrel +aspirin for 3 weeks then clopidogrel alone, ordered (3) Urinary tract infection: Plan: Catheter associated, Klebsiella exchanged barker catheter earlier in admission Continue IV ceftriaxone for 7 days. d/w Urology, if orthostatic hypotension improves consider voiding trial before discharge (4) Urinary retention: Plan: Patient has chronic Barker catheter since TURP, had missed office appointment to try to remove catheter. Consider voiding trial here if hypotension resolves (5) Hypercholesterolemia: Plan: Continue atorvastatin and ezetimibe (6) Cardiomyopathy, ischemic: Plan: Chronic ischemic cardiomyopathy last ejection fraction from March 25 shows EF of 40 to 45% patient is not in acute CHF Monitor for hypervolemia while off his usual spironolactone Plan VTE Prophylaxis - Lovenox 40mg SQ daily Diet - heart healthy Disposition -continued monitoring due to orthostatic hypotension Admission and Anticipated Discharge Date Admission Date: March 25, 2022 Subjective Patient was still feeling dizzy says today is his worst day yet he says it is not spinning around her vertigo is definitely positional and postural Review of Systems Review of Systems: Mild distress and fatigue no headache, no visual changes feels extremely lightheaded when he stands up or sits up no speech or swallowing issues no chest pain, pressure or palpitations no shortness of breath, cough or wheezes no abdominal pain, nausea or vomiting, diarrhea or constipation no dysuria, hematuria or frequency no focal joint pain or swelling no back pain, CVA tenderness or radicular pain no bruising, bleeding or rashes no focal signs of weakness or numbness or altered sensation no complaints of anxiety or depression.. Physical Exam Physical Exam: The patient appeared well nourished and normally developed. Vital signs as documented. Orthostasis is documented. He was not provoked during my evaluation Head exam is normocephalic atraumatic Neck is without JVD, thyromegaly, or carotid bruits. Lungs are clear to auscultation, no focal loss of breath sounds Cardiac exam, Rhythm is regular.. No murmurs, rubs or gallops. Abdominal exam reveals normal bowel sounds, soft non tender, no masses Extremities are nonedematous and both pedal pulses are present Neurologic exam is alert and oriented, no focal loss of strength or sensation Skin is without bruises or rashes Psychologically is without concerns for anxiety or depression.. Results & Data Results & Data ([facility]) Vital Signs (Past 12 Hours) Vital Signs Temp Pulse Pulse Resp BP BP Pulse Ox 03/30/22 08:09 98.2 F 66 18 127/71 95 03/30/22 02:30 97.3 F L 67 18 137/77 95 03/29/22 23:22 97.9 F 62 16 131/73 96 O2 Del Method 03/30/22 08:09 Room Air 03/30/22 02:30 Room Air 03/29/22 23:22 Room Air PG Care Time/CCT Total # of Minutes Spent Total Time Spent with Patient: Total time spent is greater than 50% in coordination of care (as documented) at patient's floor/unit and/or counseling patient: Coding Level of Care Code 31065 Subseq Hosp Care Lvl 3 Diagnoses Orthostatic hypotension I95.1 Stroke-like symptom R29.90 Urinary tract infection N39.0 Hematuria presence: without hematuria Urinary tract infection type: site unspecified Urinary retention R33.9 Hypercholesterolemia E78.00 Cardiomyopathy, ischemic I25.5 (1) Urinary tract infection Hematuria presence: without hematuria Urinary tract infection type: site un specified Qualified Code(s): N39.0 - Urinary tract infection, site not specified
[2022-03-30 08:49] LABS: Estimated Average Glucose 126 mg/dl
[2022-03-30] MEDS: cefTRIAXone SODIUM 2,000 MG in DEXTROSE 5% 50 ML IV SCH (12:31)
[2022-03-30] MEDS: ENOXAPARIN INJ 40 MG/0.4 ML SYR SQ SCH (16:07)
[2022-03-30] MEDS: TAMSULOSIN HCL 0.4 MG CAP PO SCH (20:50)
[2022-03-30] MEDS: GABAPENTIN 300 MG CAP PO SCH (20:51)
[2022-03-30] MEDS: MULTIVITAMIN TAB PO SCH (20:51)
[2022-03-31 07:44] LABS: Creatinine Clr Calc Pharmacy 36.5 ml/min; Est GFR (African American) 48.2 ml/min; Est GFR (Non-African American) 41.6 ml/min
[2022-03-31] MEDS: FAMOTIDINE 20 MG TAB PO SCH (08:44)
[2022-03-31] MEDS: CLOPIDOGREL BISULFATE 75 MG TAB PO SCH (08:44)
[2022-03-31] MEDS: buPROPion SR 100 MG TABCR PO SCH ×2 (08:44→21:10)
[2022-03-31] MEDS: EZETIMIBE 10 MG TABLET PO SCH (08:44)
[2022-03-31] MEDS: MAGNESIUM OXIDE 400 MG TAB PO SCH ×2 (08:44→21:10)
[2022-03-31] MEDS: ASPIRIN 81 MG ECTAB PO SCH (08:44)
[2022-03-31] MEDS: ATORVASTATIN 40 MG TAB PO SCH (08:44)
[2022-03-31] MEDS: cefTRIAXone SODIUM 2,000 MG in DEXTROSE 5% 50 ML IV SCH (12:31)
--- NOTE | 2022-03-31 15:09 | Heart Failure Consultation ---
Date of Consultation March 31, 2022 Assessment & Plan (1) Orthostatic hypotension: (2) Heart failure with mid-range ejection fraction: (3) S/P CABG x 6: (4) HTN (hypertension): (5) IVCD (intraventricular conduction defect): Plan Heart failure with mid-range EF: NYHA Class II-III symptoms. He appears euvolemic to hypovolemic on exam. He's net negative 7L for this admission despite not being diuresed. Weight is below his typical baseline. Lasix is PRN but he has not required any in some time. Spironolactone, Entresto, Carvedilol stopped due to orthostatic hypotension.Would encourage increased fluid intake? Could consider cautious IV fluids if not improving with holding meds. Discussed low sodium diet, less than 2,000 mg daily. He has a history of hyponatremia so he may not need to be as strict. Continue to monitor. Recommend daily standing weights. Dry weight 184 lb. Strict I&Os Ischemic cardiomyopathy: Long standing. EF 40-45%. Entresto and Carvedilol doses decreased due to lightheadedness. Now they have been discontinued. Spironolactone discontinued. He does not currently qualify for ICD with his EF. He does have LBBB and wide QRS. If EF declines, would consider bi-ventricular device. Coronary disease: Lexiscan/Cardiolite study in 2020. He should remain on a statin and aspirin. Denies angina. 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 His left ventricular function has not declined significantly over the last year. AV block is a possible cause of dyspnea on exertion, could consider recording his symptoms with a monitor per Dr. Veronica. Hypotension: improved. Hypercholesterolemia: He is on goal doses of atorvastatin, he is tolerating well. Lightheadedness/orthostatic hypotension: Started immediately after his MRI in August 2021. Entresto held in the past without improvement therefore it was resumed at lower doses. Carvedilol also reduced at a previous visit. Now currently all on hold which is reasonable. If he has drastic improvement in his symptoms would avoid these in the future. Consider cautious IV fluids as above. Disposition: Will be away from the hospital 04/01. Please contact hospital lead software development engineer (Dr. Doll)or Dr. Veronica with questions. Will resume following on . History of Present Illness Attending Physician: Pablo Craig MD History of Present Illness Mr. Rahman is an 86-year-old male with a history of CAD, Ischemic Cardiomyopathy (LVEF 40% to 45%), IVCD of the Left Bundle Type, Hypertension, Hypercholesterolemia, KIKE, GERD, Lumbar Spinal Stenosis, Sensory Ataxia, Idiopathic Polyneuropathy, and a recently diagnosed Bladder Tumor. Dr. Veronica is his lead software development engineer. Patient presented 03/25/22 with stroke like symptoms. He was having right sided weakness in upper and lower extremities. CTA of head and neck negative. MRI negative. Neurology was consulted. Patient has been having significant orthostatic symptoms since admission. Systolics dropping into the 70s with PT. Entresto initially lowered and now discontinued. Carvedilol also discontinued. Spironolactone also held. Patient reports as long as he is he laying down he feels well. If he sits up he has mild symptoms. He has significant symptoms upon standing. This has been somewhat chronic and noted since August of 2021, however he reports symptoms have intensified during hospitalization. He is followed routinely with the heart failure program as an outpatient. We have done a trial of reduced Entresto and have held Entresto for several weeks without improvement in his symptoms. This was then resumed. Carvedilol also reduced as an outpatient without change in symptoms. Patient denies heart failure symptoms including- shortness of breath, edema, orthopnea, or PND. Kidney function is stable. Telemetry reviewed- sinus in the 60s-70s. Weight today is 179 lb on the standing scale. Most recent office weight was 193 lb. Home dry weight is 184 lb. ECHOCARDIOGRAM 10/29/2020: -- LV mildly dilated, LV systolic function mildly reduced, EF 40%-45% -- Abnormal septal motion consistent with LBBB -- Inferobasal akinesis. Septal hypokinesis -- Mild LVH, Grade 1 diastolic dysfunction -- RV mildly dilated -- RV systolic function mildly reduced -- Mild MR, Mild TR -- Estimated RVSP is normal 01/22/21 Mycardial perfusion study: 1. Scintigraphic evidence of a prior inferior and inferoseptal myocardial infarction. 2. No stress-induced myocardial ischemia. 2. No exercise-induced chest pain. 3. No EKG changes. 4. Reduced left ventricular systolic function with a wall motion abnormality as described. Left ventricular ejection fraction is 24%. Echo 04/17/21: - EF 45-50%. Severe hypokinesi to akinesis of the base to mid inferior wall and basal inferolateral wall. Mild concentric LVH. Septal motion with LBBB. Mildly dilated RV with moderately reduced systolic function. Normal RVSP. No change from 2020. Echo: 03/25/22: No evidence of septal defect. No interatrial shunt. Left atrium moderately dilated. Right atrium moderately to severely dilated. LV normal size. Mild concentric LVH. EF 40-45%. RV moderately dilated. RV systolic function moderately reduced. Allergies Allergy/AdvReac Type Severity Reaction Status Date / Time meloxicam AdvReac Mild nausea Verified 03/25/22 15:07 Home Medications Medication Instructions Recorded Confirmed Type aspirin 81 mg tablet,delayed 81 mg PO HS 12/17/18 03/25/22 History release coQ10 (ubiquinol) 100 mg capsule 200 mg PO HS 12/17/18 03/25/22 History multivitamin 1 tab PO HS 12/17/18 03/25/22 History nitroglycerin 0.4 mg sublingual 0.4 mg sublingual UD PRN chest 05/22/20 03/25/22 Rx tablet (Nitrostat) pain #30 tabs denosumab 60 mg/mL subcutaneous 60 mg subcut .Q6M 06/05/21 03/25/22 History syringe (Prolia) atorvastatin 80 mg tablet 80 mg PO QAM #90 tabs 07/10/21 03/25/22 Rx ezetimibe 10 mg tablet 10 mg PO QAM 07/28/21 03/25/22 History carvedilol 12.5 mg tablet 12.5 mg PO BID #90 tabs 09/19/21 03/25/22 Rx levomefolate calcium 1 tab PO DIRECTED 11/20/21 03/25/22 History spironolactone 25 mg tablet 25 mg PO QAM #90 tabs 11/26/21 03/25/22 Rx (Aldactone) ketoconazole 2 % shampoo 1 applic topical WK 11/28/21 03/25/22 History sacubitril 97 mg-valsartan 103 mg See Rx Instructions .Route .COMPLEX 11/28/21 03/25/22 History tablet (Entresto) gabapentin 300 mg capsule 300 mg PO HS #30 caps 12/22/21 03/25/22 Rx magnesium oxide 400 mg (241.3 mg 400 mg PO BID #180 tabs 12/25/21 03/25/22 Rx magnesium) tablet tamsulosin 0.4 mg capsule 0.4 mg PO HS #30 caps 01/22/22 03/25/22 Rx lactulose 10 gram/15 mL (15 mL) 10 g (15 mL) PO DAILY PRN 01/23/22 03/25/22 Rx oral solution constipation #600 mL bupropion HCl 100 mg tablet,12 hr 100 mg PO BID #180 ea 03/09/22 03/25/22 Rx sustained-release (Wellbutrin SR) famotidine 40 mg tablet (Pepcid) 40 mg PO BID 03/11/22 03/25/22 History Patient History Medical History CAD (coronary artery disease) Cardiomyopathy, ischemic Depression GERD (gastroesophageal reflux disease) controlled Hiatal hernia History of adenocarcinoma of prostate History of basal cell carcinoma removed History of squamous cell carcinoma removed Hyperlipidemia Hypertension IVCD (intraventricular conduction defect) follows with Dr. Veronica Myocardial Infarction 1984: CABG 2015: stents Nephrolithiasis Neuropathy of both feet Osteoarthritis Osteoporosis Pulmonary embolism Post-op prostate surgery (1999) Sleep apnea CPAP Spinal stenosis Surgical History H/O cataract extraction bilat History of appendectomy History of colonoscopy History of coronary artery bypass graft x 6 (~1983) 1983 > follows with Dr. Veronica History of esophagogastroduodenoscopy (EGD) History of hernia repair History of lithotripsy (~2012) History of prostatectomy (~1999) hx of cancer> no radiation History of tonsillectomy and adenoidectomy History of tooth extraction Status post arterial stent 4 stents total 2005, 2014 Family History Mother , age 86 of heart issues Myocardial infarction Hypertension Heart disease Father , age 88 of heart issues Myocardial infarction Prostate cancer Hypertension Heart disease Brother Myocardial infarction Lung cancer Hypertension Heart disease Sister Hypertension Heart disease Other No family history of adverse response to anesthesia No family history of bleeding disorder Denies family history of Colon cancer Ovarian cancer Breast cancer Social History Smoking Status: Former smoker Tobacco Type: Cigarettes Age Started Using Tobacco: 18; Age Quit Using Tobacco: 27; packs per day: 2; Smoking End Date: 1962; Second Hand Exposure: No; Hx Alcohol Use: No Hx Substance Use: No Preferred Language: Japanese Communication Ability: Effective Visual Impairment: Limited Hearing Ability: Normal Stone Layout Marker Required: No Beliefs That Will Affect Care: None marital status: Current Living Situation: Spouse current occupational status: retired 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 HEENT: Head is atraumatic, normocephalic. EOM's intact. Facies symmetric. No perioral cyanosis. Mucous membranes moist. NECK: No JVD. JVP is not elevated. Carotid upstrokes are + 2 bilaterally. No bruits are noted. CHEST/LUNGS: Mildly diminished breath sounds throughout, otherwise clear. No wheezes, rales, or crackles. CVS: S1 and S2 are regular without obvious murmurs, gallops, or rubs. PMI is nondisplaced. No lifts, heaves, or thrills. No abdominal aortic or renal bruits. ABDOMINAL EXAM: Bowel sounds are present. No masses, organomegaly, or tenderness. EXTREMITIES: No clubbing or cyanosis. No edema. Intact radial pulses bilaterally. NEUROLOGIC EXAM: Patient is awake, alert, and oriented. Pleasant and cooperative. Answers questions appropriately. Speech is clear. SKIN: Normal turgor Results & Data ([facility]) Vital Signs (Past 12 Hours) Vital Signs Temp Pulse Pulse Resp BP BP Pulse Ox 03/31/22 11:04 97.5 F L 77 18 89/57 L 97 03/31/22 08:00 65 03/31/22 06:57 97.9 F 70 17 125/71 97 O2 Del Method 03/31/22 11:04 Room Air 03/31/22 08:00 03/31/22 06:57 Room Air Coding Level of Care Code 04261 Initial Inpt Care Lvl 3 Diagnoses Orthostatic hypotension I95.1 Heart failure with mid-range ejection fraction I50.9 S/P CABG x 6 Z95.1 HTN (hypertension) I10 IVCD (intraventricular conduction defect) I45.4
[2022-03-31] MEDS: ENOXAPARIN INJ 40 MG/0.4 ML SYR SQ SCH (16:15)
--- NOTE | 2022-03-31 18:00 | Hospitalist Progress Note ---
Date of Service March 31, 2022 Assessment & Plan (1) Orthostatic hypotension: Plan: Significant orthostasis despite that Entresto has been held Significant orthostasis which may be cause of his initial stroke like symptoms although these appear to be more localized he also has spinal stenosis and idiopathetic polyneuropathy Orthostasis appears to be ongoing despite significant reduction in his Entresto on 03/26 - 03/27. Unclear definitive reason he is unable to tolerate his usual BP meds but appears he has been having issues with lightheadedness as outpatient so maybe was not tolerating then +/- catheter-associated UTI contributing (although no WBC to suggestive significant infection) Orthostatics repeated with significant symptoms -9. Interestingly he is heart does not compensate for the lower blood pressure. Therefore we will hold his beta-ree and discontinue his Entresto TSH checked and found to be normal I would hold Flomax which also could be contributing factor (2) Stroke-like symptom: Plan: CVA ruled out Possible TIA TTE - shows no thrombus or ASD CTA of head and neck: unremarkable MR brain is negative for acute CVA - chronic microvascular ischemic disease. LDL 20 in January - continue atorvastatin and ezetimibe Fasting glucose 83 [03/27], will get HbA1C to complete workup with AM labs Prior neurology consulted recommended clopidogrel +aspirin for 3 weeks then clopidogrel alone, ordered (3) Urinary tract infection: Plan: Catheter associated, Klebsiella exchanged barker catheter earlier in admission Continue IV ceftriaxone for 7 days. d/w Urology, if orthostatic hypotension improves consider voiding trial before discharge (4) Urinary retention: Plan: Patient has chronic Barker catheter since TURP, had missed office appointment to try to remove catheter. Consider voiding trial here if hypotension resolves (5) Hypercholesterolemia: Plan: Continue atorvastatin and ezetimibe (6) Cardiomyopathy, ischemic: Plan: Chronic ischemic cardiomyopathy last ejection fraction from March 25 shows EF of 40 to 45% patient is not in acute CHF Monitor for hypervolemia while off his usual spironolactone Plan VTE Prophylaxis - Lovenox 40mg SQ daily Diet - heart healthy Disposition -continued monitoring due to orthostatic hypotension Admission and Anticipated Discharge Date Admission Date: March 25, 2022 Review of Systems Review of Systems: Mild distress and fatigue no headache, no visual changes feels extremely lightheaded when he stands up or sits up no speech or swallowing issues no chest pain, pressure or palpitations no shortness of breath, cough or wheezes no abdominal pain, nausea or vomiting, diarrhea or constipation no dysuria, hematuria or frequency no focal joint pain or swelling no back pain, CVA tenderness or radicular pain no bruising, bleeding or rashes no focal signs of weakness or numbness or altered sensation no complaints of anxiety or depression.. Physical Exam Physical Exam: The patient appeared well nourished and normally developed. Vital signs as documented. Orthostasis is documented. He was not provoked during my evaluation Head exam is normocephalic atraumatic Neck is without JVD, thyromegaly, or carotid bruits. Lungs are clear to auscultation, no focal loss of breath sounds Cardiac exam, Rhythm is regular.. No murmurs, rubs or gallops. Abdominal exam reveals normal bowel sounds, soft non tender, no masses Extremities are nonedematous and both pedal pulses are present Neurologic exam is alert and oriented, no focal loss of strength or sensation Skin is without bruises or rashes Psychologically is without concerns for anxiety or depression.. Constitutional: WD/WN, vitals as above Respiratory: normal respiratory effort, lungs clear to auscultation Cardiovascular: RRR, no murmur, no edema Gastrointestinal (Abdomen): normal bowel sounds, soft, nontender, no hepato splenomegaly Skin: no rashes, warm and dry Neurologic: moves all extremities and awake; no focal motor deficits and not confused Psychiatric: A+Ox3, euthymic affect Results & Data Results & Data ([facility]) Vital Signs (Past 12 Hours) Vital Signs Temp Pulse Pulse Resp BP BP Pulse Ox 03/31/22 15:00 66 03/31/22 15:21 36.6 C 67 17 124/64 97 03/31/22 11:04 36.4 C L 77 18 89/57 L 97 03/31/22 08:00 65 03/31/22 06:57 36.6 C 70 17 125/71 97 O2 Del Method 03/31/22 15:00 03/31/22 15:21 Room Air 03/31/22 11:04 Room Air 03/31/22 08:00 03/31/22 06:57 Room Air PG Care Time/CCT Total # of Minutes Spent Total Time Spent with Patient: Total time spent is greater than 50% in coordination of care (as documented) at patient's floor/unit and/or counseling patient: Coding Level of Care Code 89610 Inpt Consult Level 3 Diagnoses Orthostatic hypotension I95.1 Stroke-like symptom R29.90 Urinary tract infection N39.0 Hematuria presence: without hematuria Urinary tract infection type: site unspecified Urinary retention R33.9 Hypercholesterolemia E78.00 Cardiomyopathy, ischemic I25.5 (1) Urinary tract infection Hematuria presence: without hematuria Urinary tract infection type: site unspecified Qualified Code(s): N39.0 - Urinary tract infection, site not specified
[2022-03-31] MEDS: GABAPENTIN 300 MG CAP PO SCH (21:10)
[2022-03-31] MEDS: MULTIVITAMIN TAB PO SCH (21:10)
[2022-04-01 07:31] LABS: Calcium 8.6 mg/dl (8.5-10.1); Creatinine Clr Calc Pharmacy 40.6 ml/min; Est GFR (African American) 54.7 ml/min; Est GFR (Non-African American) 47.2 ml/min; Potassium 4.7 mmol/L (3.5-5.1)
[2022-04-01] MEDS: FAMOTIDINE 20 MG TAB PO SCH (08:18)
[2022-04-01] MEDS: MAGNESIUM OXIDE 400 MG TAB PO SCH ×2 (08:18→20:18)
[2022-04-01] MEDS: ASPIRIN 81 MG ECTAB PO SCH (08:18)
[2022-04-01] MEDS: ATORVASTATIN 40 MG TAB PO SCH (08:18)
[2022-04-01] MEDS: buPROPion SR 100 MG TABCR PO SCH ×2 (08:18→20:18)
[2022-04-01] MEDS: CLOPIDOGREL BISULFATE 75 MG TAB PO SCH (08:19)
[2022-04-01] MEDS: EZETIMIBE 10 MG TABLET PO SCH (08:19)
[2022-04-01] MEDS: cefTRIAXone SODIUM 2,000 MG in DEXTROSE 5% 50 ML IV SCH (13:28)
[2022-04-01] MEDS: ENOXAPARIN INJ 40 MG/0.4 ML SYR SQ SCH (16:36)
--- NOTE | 2022-04-01 19:23 | Hospitalist Progress Note ---
Date of Service April 01, 2022 Assessment & Plan (1) Orthostatic hypotension: Plan: Doing better this today, so for carvedilol, Flomax, Entresto , spironolactone has been held Significant orthostasis which may be cause of his initial stroke like symptoms although these appear to be more localized he also has spinal stenosis and idiopathetic polyneuropathy Unclear definitive reason he is unable to tolerate his usual BP meds but appears he has been having issues with lightheadedness as outpatient so maybe was not tolerating then +/- catheter-associated UTI contributing (although no WBC to suggestive significant infection) TSH checked and found to be normal r (2) Stroke-like symptom: Plan: CVA ruled out Possible TIA TTE - shows no thrombus or ASD CTA of head and neck: unremarkable MR brain is negative for acute CVA - chronic microvascular ischemic disease. LDL 20 in January - continue atorvastatin and ezetimibe Fasting glucose 83 [03/27], will get HbA1C to complete workup with AM labs Prior neurology consulted recommended clopidogrel +aspirin for 3 weeks then clopidogrel alone, ordered -Orthostasis could be contributing factor (3) Urinary tract infection: Plan: Catheter associated, Klebsiella exchanged barker catheter earlier in admission Complete the course of treatment with Rocephin d/w Urology, if orthostatic hypotension improves consider voiding trial before discharge (4) Urinary retention: Plan: Patient has chronic Barker catheter since TURP, had missed office appointment to try to remove catheter. Consider voiding trial here if hypotension resolves (5) Hypercholesterolemia: Plan: Continue atorvastatin and ezetimibe (6) Cardiomyopathy, ischemic: Plan: Chronic ischemic cardiomyopathy last ejection fraction from March 25 shows EF of 40 to 45% patient is not in acute CHF Monitor for hypervolemia while off his usual spironolactone Plan VTE Prophylaxis - Lovenox 40mg SQ daily Diet - heart healthy Disposition -continued monitoring due to orthostatic hypotension Admission and Anticipated Discharge Date Admission Date: March 25, 2022 Subjective The patient is 86-year-old male with a past medical history significant for idiopathic polyneuropathy, he with history of severe lumbar stenosis presented with right-sided weakness with last for short period time. She has a history of ischemic cardiomyopathy, history of urinary retention status post chronic indwelling Barker catheter which was supposed the to be removed in the near future . He had a unremarkable MRI of the brain, consult with neurology recommend to add Plavix for the next 3 weeks. An outpatient Zio patch for 2 to 4 weeks.An EMG completed with Dr. Nance in November 2020 was remarkable for a a sensorimotor polyneuropathy of mixed pathology as well as a very mild chronic active right S1 radiculopathy. Patient feels less lightheaded today, however patient extremely weak, patient is orthostatic but less than yesterday and much less symptomatic Physical Exam Physical Exam: The patient appeared well nourished and normally developed. Vital signs as documented. Orthostasis is documented. He was not provoked during my evaluation Head exam is normocephalic atraumatic Neck is without JVD, thyromegaly, or carotid bruits. Lungs are clear to auscultation, no focal loss of breath sounds Cardiac exam, Rhythm is regular.. No murmurs, rubs or gallops. Abdominal exam reveals normal bowel sounds, soft non tender, no masses Extremities are nonedematous and both pedal pulses are present Neurologic exam is alert and oriented, no focal loss of strength or sensation Skin is without bruises or rashes Psychologically is without concerns for anxiety or depression.. Constitutional: WD/WN, vitals as above Respiratory: normal respiratory effort, lungs clear to auscultation Cardiovascular: RRR, no murmur, no edema Gastrointestinal (Abdomen): normal bowel sounds, soft, nontender, no hepatosplenomegaly Skin: no rashes, warm and dry Neurologic: moves all extremities and awake; no focal motor deficits and not confused Psychiatric: A+Ox3, euthymic affect Results & Data Results & Data ([facility]) Vital Signs (Past 12 Hours) Vital Signs Temp Pulse Pulse Resp BP Pulse Ox O2 Del Method 04/01/22 15:35 36.7 C 69 20 119/67 95 Room Air 04/01/22 15:00 72 04/01/22 11:36 36.4 C L 76 20 112/70 98 Room Air 04/01/22 08:00 75 04/01/22 07:57 36.5 C 76 18 138/69 96 Room Air PG Care Time/CCT Total # of Minutes Spent Total Time Spent with Patient: Total time spent is greater than 50% in coordination of care (as documented) at patient's floor/unit and/or counseling patient: Coding Level of Care Code 19222 Subseq Hosp Care Lvl 3 Diagnoses Orthostatic hypotension I95.1 Stroke-like symptom R29.90 Urinary tract infection N39.0 Hematuria presence: without hematuria Urinary tract infection type: site unspecified Urinary retention R33.9 Hypercholesterolemia E78.00 Cardiomyopathy, ischemic I25.5 (1) Urinary tract infection Hematuria presence: without hematuria Urinary tract infection type: site unspecified Qualified Code(s): N39.0 - Urinary tract infection, site not sp ecified
[2022-04-01] MEDS: GABAPENTIN 300 MG CAP PO SCH (20:18)
[2022-04-01] MEDS: MULTIVITAMIN TAB PO SCH (20:18)
[2022-04-02 06:42] LABS: BUN Creatinine Ratio 23.4 (10-20); Calcium 8.6 mg/dl (8.5-10.1); Creatinine Clr Calc Pharmacy 38.8 ml/min; Est GFR (African American) 51.9 ml/min; Est GFR (Non-African American) 44.8 ml/min
[2022-04-02] MEDS: MAGNESIUM OXIDE 400 MG TAB PO SCH ×2 (08:27→20:18)
[2022-04-02] MEDS: EZETIMIBE 10 MG TABLET PO SCH (08:27)
[2022-04-02] MEDS: buPROPion SR 100 MG TABCR PO SCH ×2 (08:27→20:18)
[2022-04-02] MEDS: ASPIRIN 81 MG ECTAB PO SCH (08:27)
[2022-04-02] MEDS: FAMOTIDINE 20 MG TAB PO SCH (08:28)
[2022-04-02] MEDS: ATORVASTATIN 40 MG TAB PO SCH (08:28)
[2022-04-02] MEDS: CLOPIDOGREL BISULFATE 75 MG TAB PO SCH (08:28)
--- NOTE | 2022-04-02 09:49 | Heart Failure Progress Note ---
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 He appears euvolemic on exam. He's net negative 9L for this admission despite not being diuresed. Weight is below his typical baseline. Lasix is PRN but he has not required any in some time. Spironolactone, Entresto, Carvedilol stopped due to orthostatic hypotension.Would encourage increased fluid intake. Discussed low sodium diet, less than 2,000 mg daily. He has a history of hyponatremia so he may not need to be as strict. Continue to monitor. Recommend daily standing weights. Dry weight 184 lb. Strict I&Os Ischemic cardiomyopathy: Long standing. EF 40-45%. Entresto and Carvedilol doses decreased due to lightheadedness. Now they have been discontinued. Spironolactone discontinued. Symptoms improving. He does not currently qualify for ICD with his EF. He does have LBBB and wide QRS. If EF declines, would consider bi-ventricular device. Coronary disease: Lexiscan/Cardiolite study in 2020. He should remain on a statin and aspirin. Denies angina. 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 His left ventricular function has not declined significantly over the last year. AV block is a possible cause of dyspnea on exertion, could consider recording his symptoms with a monitor per Dr. Veronica. Hypotension: improved. Hypercholesterolemia: He is on goal doses of atorvastatin, he is tolerating well. Lightheadedness/orthostatic hypotension: Started immediately after his MRI in August 2021. Entresto held in the past without improvement therefore it was resumed at lower doses. Carvedilol also reduced at a previous visit. Now currently all on hold which is reasonable. If he has drastic improvement in his symptoms would avoid these in the future. Consider cautious IV fluids as above. Disposition: Will continue to follow during hospitalization. Anticipate short term rehab stay upon discharge ([facility]?) Admission and Anticipated Discharge Date Admission Date: March 25, 2022 Subjective Patient reports feeling better today. Orthostatics were improved this am. He was able to ambulate to the restroom this am without much difficulty. He continues to have a net negative fluid balance. Encourage more oral intake. He denies chest pain, cough, palpitations. Telemetry reviewed- sinus 60s-70s. Physical Exam Physical Exam: GENERAL: Patient in no acute distress. HEENT: Head is atraumatic, normocephalic. EOM's intact. Facies symmetric. No perioral cyanosis. Mucous membranes moist. NECK: No JVD. JVP is not elevated. Carotid upstrokes are + 2 bilaterally. No bruits are noted. CHEST/LUNGS: Mildly diminished breath sounds throughout, otherwise clear. No wheezes, rales, or crackles. CVS: S1 and S2 are regular without obvious murmurs, gallops, or rubs. PMI is nondisplaced. No lifts, heaves, or thrills. No abdominal aortic or renal bruits. ABDOMINAL EXAM: Bowel sounds are present. No masses, organomegaly, or tenderness. EXTREMITIES: No clubbing or cyanosis. No edema. Intact radial pulses bilaterally. NEUROLOGIC EXAM: Patient is awake, alert, and oriented. Pleasant and cooperative. Answers questions appropriately. Speech is clear. SKIN: Normal turgor Results & Data ([facility]) Vital Signs (Past 12 Hours) Vital Signs Temp Pulse Pulse Pulse Resp BP BP 04/02/22 07:52 97.9 F 77 17 142/76 H 04/02/22 02:52 97.7 F 67 18 119/65 04/02/22 00:08 97.7 F 66 20 155/72 H 04/01/22 23:39 73 Pulse Ox O2 Del Method 04/02/22 07:52 96 Room Air 04/02/22 02:52 95 Room Air 04/02/22 00:08 97 Room Air 04/01/22 23:39 PG Care Time/CCT Total # of Minutes Spent Total Time Spent with Patient: Total time spent is greater than 50% in coordination of care (as documented) at patient's floor/unit and/or counseling patient: Coding Level of Care Code 80196 Subseq Hosp Care Lvl 3 Diagnoses Orthostatic hypotension I95.1 Heart failure with mid-range ejection fraction I50.9 S/P CABG x 6 Z95.1 HTN (hypertension) I10 IVCD (intraventricular conduction defect) I45.4
[2022-04-02] MEDS: ENOXAPARIN INJ 40 MG/0.4 ML SYR SQ SCH (16:31)
--- NOTE | 2022-04-02 18:56 | Hospitalist Progress Note ---
Date of Service April 02, 2022 Assessment & Plan (1) Orthostatic hypotension: Plan: Doing better this today, so for carvedilol, Flomax, Entresto , spironolactone has been held Significant orthostasis which may be cause of his initial stroke like symptoms although these appear to be more localized he also has spinal stenosis and idiopathetic polyneuropathy Unclear definitive reason he is unable to tolerate his usual BP meds but appears he has been having issues with lightheadedness as outpatient so maybe was not tolerating then +/- catheter-associated UTI contributing (although no WBC to suggestive significant infection) TSH checked and found to be normal r (2) Stroke-like symptom: Plan: CVA ruled out Possible TIA TTE - shows no thrombus or ASD CTA of head and neck: unremarkable MR brain is negative for acute CVA - chronic microvascular ischemic disease. LDL 20 in January - continue atorvastatin and ezetimibe Fasting glucose 83 [03/27], will get HbA1C to complete workup with AM labs Prior neurology consulted recommended clopidogrel +aspirin for 3 weeks then clopidogrel alone, ordered -Orthostasis could be contributing factor (3) Urinary tract infection: Plan: Catheter associated, Klebsiella exchanged barker catheter earlier in admission Complete the course of treatment with Rocephin d/w Urology, if orthostatic hypotension improves consider voiding trial before discharge (4) Urinary retention: Plan: Patient has chronic Barker catheter since TURP, had missed office appointment to try to remove catheter. Consider voiding trial here if hypotension resolves (5) Hypercholesterolemia: Plan: Continue atorvastatin and ezetimibe (6) Cardiomyopathy, ischemic: Plan: Chronic ischemic cardiomyopathy last ejection fraction from March 25 shows EF of 40 to 45% patient is not in acute CHF Monitor for hypervolemia while off his usual spironolactone Plan Ready to be discharged, discussed with the employment case manager, pending placement Admission and Anticipated Discharge Date Admission Date: March 25, 2022 Subjective Patient feels better today, still orthostatic, systolic blood pressure dropped from 120 to 90s, however patient has no symptoms, continue current treatment, proceed with pressure starting Physical Exam Physical Exam: The patient appeared well nourished and normally developed. Vital signs as documented. Orthostasis is documented. He was not provoked during my evaluation Head exam is normocephalic atraumatic Neck is without JVD, thyromegaly, or carotid bruits. Lungs are clear to auscultation, no focal loss of breath sounds Cardiac exam, Rhythm is regular.. No murmurs, rubs or gallops. Abdominal exam reveals normal bowel sounds, soft non tender, no masses Extremities are nonedematous and both pedal pulses are present Neurologic exam is alert and oriented, no focal loss of strength or sensation Skin is without bruises or rashes Psychologically is without concerns for anxiety or depression.. Constitutional: WD/WN, vitals as above Respiratory: normal respiratory effort, lungs clear to auscultation Cardiovascular: RRR, no murmur, no edema Gastrointestinal (Abdomen): normal bowel sounds, soft, nontender, no hepatosplenomegaly Skin: no rashes, warm and dry Neurologic: moves all extremities and awake; no focal motor deficits and not confused Psychiatric: A+Ox3, euthymic affect Results & Data Results & Data ([facility]) Vital Signs (Past 12 Hours) Vital Signs Temp Pulse Pulse Resp BP BP Pulse Ox 04/02/22 15:05 36.7 C 65 17 117/67 96 04/02/22 08:00 80 04/02/22 11:48 36.5 C 65 17 132/70 97 04/02/22 07:52 36.6 C 77 17 142/76 H 96 O2 Del Method 04/02/22 15:05 Room Air 04/02/22 08:00 04/02/22 11:48 Room Air 04/02/22 07:52 Room Air PG Care Time/CCT Total # of Minutes Spent Total Time Spent with Patient: Total time spent is greater than 50% in coordination of care (as documented) at patient's floor/unit and/or counseling patient: Coding Level of Care Code 79165 Subseq Obs Care Lvl 2 Diagnoses Orthostatic hypotension I95.1 Stroke-like symptom R29.90 Urinary tract infection N39.0 Hematuria presence: without hematuria Urinary tract infection type: site unspecified Urinary retention R33.9 Hypercholesterolemia E78.00 Cardiomyopathy, ischemic I25.5 (1) Urinary tract infection Hematuria presence: without hematuria Urinary tract infection type: site unspecified Qualified Code(s): N39.0 - Urinary tract infection, site not specified
[2022-04-02] MEDS: MULTIVITAMIN TAB PO SCH (20:18)
[2022-04-02] MEDS: GABAPENTIN 300 MG CAP PO SCH (20:18)
[2022-04-03] MEDS: ASPIRIN 81 MG ECTAB PO SCH (08:37)
[2022-04-03] MEDS: buPROPion SR 100 MG TABCR PO SCH (08:38)
[2022-04-03] MEDS: ATORVASTATIN 40 MG TAB PO SCH (08:38)
[2022-04-03] MEDS: EZETIMIBE 10 MG TABLET PO SCH (08:38)
[2022-04-03] MEDS: MAGNESIUM OXIDE 400 MG TAB PO SCH (08:38)
[2022-04-03] MEDS: CLOPIDOGREL BISULFATE 75 MG TAB PO SCH (08:38)
[2022-04-03 09:59] LABS: Creatinine Clr Calc Pharmacy 40.9 ml/min; Est GFR (African American) 55.2 ml/min; Est GFR (Non-African American) 47.6 ml/min
[2022-04-03] MEDS: FAMOTIDINE 20 MG TAB PO SCH (10:20)
--- NOTE | 2022-04-03 10:35 | Heart Failure Progress Note ---
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 He appears euvolemic on exam. He's net negative 8 L for this admission despite not being diuresed. Weight is below his typical baseline. Lasix is PRN but he has not required any in some time. Spironolactone, Entresto, Carvedilol stopped due to orthostatic hypotension.He is feeling better since stopping his meds. Would encourage increased fluid intake. Discussed low sodium diet, less than 2,000 mg daily. He has a history of hyponatremia so he may not need to be as strict. Continue to monitor. Recommend daily standing weights. Dry weight 184 lb. Strict I&Os Ischemic cardiomyopathy: Long standing. EF 40-45%. Entresto and Carvedilol doses decreased due to lightheadedness. Now they have been discontinued. Spironolactone discontinued. Symptoms improving. He does not currently qualify for ICD with his EF. He does have LBBB and wide QRS. If EF declines, would consider bi-ventricular device. Coronary disease: Lexiscan/Cardiolite study in 2020. He should remain on a statin and aspirin. Denies angina. 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 His left ventricular function has not declined significantly over the last year. AV block is a possible cause of dyspnea on exertion, could consider recording his symptoms with a monitor per Dr. Veronica. Hypotension: improved. Hypercholesterolemia: He is on goal doses of atorvastatin, he is tolerating well. Lightheadedness/orthostatic hypotension: Started immediately after his MRI in August 2021. Entresto held in the past without improvement therefore it was resumed at lower doses. Carvedilol also reduced at a previous visit. Now currently all on hold which is reasonable. If he has drastic improvement in his symptoms would avoid these in the future. Disposition: Will continue to follow during hospitalization. Anticipate short term rehab stay upon discharge ([facility]?). Admission and Anticipated Discharge Date Admission Date: March 25, 2022 Subjective Patient resting comfortably in bed. Reports he's feeling somewhat better each day. He was able to ambulate the room yesterday without symptoms. He denies chest pain, shortness of breath, edema, orthopnea. Weight 187 lb. Fluid balance more neutral yesterday. Physical Exam Physical Exam: GENERAL: Patient in no acute distress. HEENT: Head is atraumatic, normocephalic. EOM's intact. Facies symmetric. No perioral cyanosis. Mucous membranes moist. NECK: No JVD. JVP is not elevated. Carotid upstrokes are + 2 bilaterally. No bruits are noted. CHEST/LUNGS: Mildly diminished breath sounds throughout, otherwise clear. No wheezes, rales, or crackles. CVS: S1 and S2 are regular without obvious murmurs, gallops, or rubs. PMI is nondisplaced. No lifts, heaves, or thrills. No abdominal aortic or renal bruits. ABDOMINAL EXAM: Bowel sounds are present. No masses, organomegaly, or tenderness. EXTREMITIES: No clubbing or cyanosis. No edema. Intact radial pulses bilaterally. NEUROLOGIC EXAM: Patient is awake, alert, and oriented. Pleasant and cooperative. Answers questions appropriately. Speech is clear. SKIN: Normal turgor Results & Data ([facility]) Vital Signs (Past 12 Hours) Vital Signs Temp Pulse Pulse Resp BP Pulse Ox O2 Del Method 04/03/22 06:10 68 04/03/22 08:36 97.9 F 73 18 153/74 H 96 Room Air 04/03/22 03:48 97.5 F L 71 18 124/75 95 Room Air 04/02/22 23:51 98.4 F 67 18 131/71 95 Room Air PG Care Time/CCT Total # of Minutes Spent Total Time Spent with Patient: Total time spent is greater than 50% in coordination of care (as documented) at patient's floor/unit and/or counseling patient: Coding Level of Care Code 70934 Subseq Hosp Care Lvl 3 Diagnoses Orthostatic hypotension I95.1 Heart failure with mid-range ejection fraction I50.9 S/P CABG x 6 Z95.1 HTN (hypertension) I10 IVCD (intraventricular conduction defect) I45.4
--- NOTE | 2022-04-03 14:39 | Discharge Summary ---
Date of Service April 03, 2022 Admission HPI Per Admitting Provider 86 yo male with history of idiopathic polyneuropathy and severe lumbar spinal stenosis reports having right sided weakness in his right upper and lower extremity. He noticed this on Wednesday, when he ambulated, this only lasted for a short period. This occurred when he was ambulatinfg in his house. Patient denies any dizziness or orthostasis. Patient reports that his symptoms returned this AM where he was having di fficulty ambulating to the kitchen and he required his walker. He states he normally does not use the walker. He reported he was going to pass out. He reports his symptoms were present today, which prompted him to come to the ER. Principal Diagnosis 1. Orthostatic hypotension 2. Catheter associated UTI with Klebsiella 3. Strokelike symptom possibly secondary to orthostatic hypotension versus TIA 4. hyponatremia Discharge Exam The patient appeared well nourished and normally developed. Vital signs as documented. Orthostasis is documented. He was not provoked during my evaluation Head exam is normocephalic atraumatic Neck is without JVD, thyromegaly, or carotid bruits. Lungs are clear to auscultation, no focal loss of breath sounds Cardiac exam, Rhythm is regular.. No murmurs, rubs or gallops. Abdominal exam reveals normal bowel sounds, soft non tender, no masses Extremities are nonedematous and both pedal pulses are present Neurologic exam is alert and oriented, no focal loss of strength or sensation Skin is without bruises or rashes Psychologically is without concerns for anxiety or depression.. Constitutional WD/WN, vitals as above well developed; no acute distress Eyes normal visual car by confrontation, PERRL and EOM intact bilaterally; no fundoscopic abnormality and no papilledema Respiratory normal respiratory effort, lungs clear to auscultation Cardiovascular RRR, no murmur, no edema Vessels: normal carotid upstroke; no carotid bruit Gastrointestinal (Abdomen) normal bowel sounds, soft, nontender, no hepatosplenomegaly Skin no rashes, warm and dry Neurologic moves all extremities and awake; no focal motor deficits and not confused Psychiatric A+Ox3, euthymic affect Discharge Data Allergies Allergy/AdvReac Type Severity Reaction Status Date / Time meloxicam AdvReac Mild nausea Verified 03/25/22 15:07 Consultations 03/25/22 13:30 ED Decision to Admit Stat 03/25/22 14:29 Consult Neurology Routine 03/29/22 09:34 Consult DMITRI unit control worker Routine 03/30/22 14:46 [facility] CH[facility] Program Referral Routine Ordered Studies 03/25/22 09:10 CT angio head w con Stat CT angio neck with con Stat CT head/brain wo con Stat 03/25/22 14:48 MR brain wo con Urgent Hospital Course (1) Orthostatic hypotension: Doing better this today, so for carvedilol, Flomax, Entresto , spironolactone has been held Significant orthostasis which may be cause of his initial stroke like symptoms although these appear to be more localized he also has spinal stenosis and idiopathetic polyneuropathy Unclear definitive reason he is unable to tolerate his usual BP meds but appears he has been having issues with lightheadedness as outpatient so maybe was not tolerating then +/- catheter-associated UTI contributing (although no WBC to suggestive significant infection) TSH checked and found to be normal r (2) Stroke-like symptom: CVA ruled out Possible TIA TTE - shows no thrombus or ASD CTA of head and neck: unremarkable MR brain is negative for acute CVA - chronic microvascular ischemic disease. LDL 20 in January - continue atorvastatin and ezetimibe Fasting glucose 83 [03/27], will get HbA1C to complete workup with AM labs Prior neurology consulted recommended clopidogrel +aspirin for 3 weeks then clopidogrel alone, ordered -Orthostasis could be contributing factor (3) Urinary tract infection: Catheter associated, Klebsiella exchanged barker catheter earlier in admission Complete the course of treatment with Rocephin d/w Urology, if orthostatic hypotension improves consider voiding trial before discharge (4) Urinary retention: Patient has chronic Barker catheter since TURP, had missed office appointment to try to remove catheter. Consider voiding trial here if hypotension resolves (5) Hypercholesterolemia: Continue atorvastatin and ezetimibe (6) Cardiomyopathy, ischemic: Chronic ischemic cardiomyopathy last ejection fraction from March 25 shows EF of 40 to 45% patient is not in acute CHF Monitor for hypervolemia while off his usual spironolactone Plan Ready to be discharged, discussed with the rifle case repairer, pending placement Total Time Total Time Spent Total Time Spent (In Minutes): 45 Discharge Plan Discharge Items Patient Disposition: Transfer Inpatient Rehab Fac Reason For Visit: STROKE LIKE SYMPTOMS Discharge Diagnosis: 1. Catheter associated UTI with Klebsiella 2. Orthostatic hypotension 3. Mild diarrhea Condition on Discharge: Fair Activity: Resume your previous activity Lifting: Gradually increase as tolerated Bathing: No limitations Sexual Activity: When tolerated Exercise/Sports: Gradually increase as tolerated Driving/Machine Use: No limitations Weightbearing: Full weightbearing Non-emergency contact: Primary Care Provider Call non-emergency contact if: you have any medication questions Follow-up/Referrals: Jorge Owens III, IMANI [Primary Care Provider] - Leonard Eaton DO [Physician] - Claudia Sosa PA-C [Physician Chief Business Development Officer] - 04/10/22 10:30 am Diet: Heart Healthy and Low Sodium (2gm) Addtl Attending Provider Instructions: He appears euvolemic on exam. He's net negative 8 L for this admission despite not being diuresed. Weight is below his typical baseline. Lasix is PRN but he has not required any in some time. Spironolactone, Entresto, Carvedilol and Flomax stopped due to orthostatic hypotension.He is feeling better since stopping his meds. Would encourage increased fluid intake. Discussed low sodium diet, less than 2,000 mg daily. He has a history of hyponatremia so he may not need to be as strict. Continue to monitor. Recommend daily standing weights. Dry weight 184 lb. He is a still orthostatic his systolic blood pressure dropped from 140s to [id number] from supine to standing positions but has no symptoms, her medication needs to be gradually reintroduced that include spironolactone Entresto carvedilo and Flomax. Patient has chronic Barker catheter since TURP, had missed office appointment to try to remove catheter. Consider voiding trialwhen the patient is ambulatory in 2 to 3 days especially given the patient has catheter associated UTI Patient was seen by neurologist recommend to proceed with dual antiplatelet agent for 3 weeks and then only aspirin Pending Studies at Discharge: No Stand-Alone Forms: My [employer] Skilled Items Patient informed of condition?: Yes DNR: No Discharge Level of Care: Skilled Communicable Disease: No Discharge Prognosis: Improving Lines: None Urinary Catheter: Yes Medications and DC Order Prescriptions: New diphenoxylate-atropine [Lomotil] 2.5-0.025 mg tablet 1 tab PO Q6H PRN (Reason: diarrhea) Qty: 14 0RF clopidogrel 75 mg Tablet 75 mg PO QAM Qty: 30 0RF Continued atorvastatin 80 mg tablet 80 mg PO QAM Qty: 90 3RF lactulose 10 gram/15 mL (15 mL) solution 10 g PO DAILY PRN (Reason: constipation) Qty: 600 0RF nitroglycerin [Nitrostat] 0.4 mg tablet, sublingual 0.4 mg sublingual UD PRN (Reason: chest pain) Qty: 30 2RF gabapentin 300 mg capsule 300 mg PO HS Qty: 30 5RF bupropion HCl [Wellbutrin SR] 100 mg tablet sustained-release 12 hr 100 mg PO BID Qty: 180 3RF levomefolate calcium 1 tab PO DIRECTED multivitamin Tablet 1 tab PO HS aspirin 81 mg Tablet,Delayed Release (Dr/Ec) 81 mg PO HS coQ10 (ubiquinol) 100 mg Capsule 200 mg PO HS Prolia 60 mg/mL syringe 60 mg SUBCUT .Q6M Rx Instructions: 60 mg subcut q 6 months ezetimibe 10 mg tablet 10 mg PO QAM Rx Instructions: TAKE 1 TABLET BY MOUTH DAILY ketoconazole 2 % shampoo 1 applic topical WK Rx Instructions: Wash scalp 2-3 times weekly. Let sit for 3-5 minutes prior to rinsing.; Changed famotidine [Pepcid] 40 mg tablet 20 mg PO QAM Qty: 20 0RF Discontinued spironolactone [Aldactone] 25 mg tablet 25 mg PO QAM Qty: 90 3RF magnesium oxide 400 mg (241.3 mg magnesium) tablet 400 mg PO BID Qty: 180 3RF carvedilol 12.5 mg tablet 12.5 mg PO BID Qty: 90 3RF Rx Instructions: must administer with a meal/food tamsulosin 0.4 mg capsule 0.4 mg PO HS Qty: 30 5RF Entresto 97-103 mg tablet See Rx Instructions .ROUTE .COMPLEX Rx Instructions: 1 tab orally ;1/2 tab in AM, 1 whole tab in evening PO; Discharge Orders: Discharge Order (Routine); Ordered 04/03/22 Ordered By: Pablo Craig Admission Data Admit Date/Time: 03/25/22 14:30 Attending Provider: Pablo Craig Admit Provider: Steven Huston Primary Care Provider: Jorge Owens III Other Providers: [facility] ; Steven Huston ; Jose Hilliard ; Claudia Sosa ; Darrell Love Other Interventions: Discharge Summary Assessment (RN) Last Done: 04/03/22 13:36 Coding Level of Care Code D/C DAY MANAGEMENT >30 MINS Diagnoses Orthostatic hypotension I95.1 Stroke-like symptom R29.90 Urinary tract infection N39.0 Hematuria presence: without hematuria Urinary tract infection type: site unspecified Urinary retention R33.9 Hypercholesterolemia E78.00 Cardiomyopathy, ischemic I25.5
== END 2022-04-03 14:41 | DRG 69 ==
LOC: ED 08:51 → 2S 14:30 → SUATTDRO 14:30 → 2S 15:47 → 2W 04-02 20:41

== ENCOUNTER 2024-04-04 12:17 | Inpatient (IN) ==
--- NOTE | 2024-04-04 12:29 | Emergency Department Note ---
Impression & Plan Acute UTI (urinary tract infection), Generalized weakness, Hypomagnesemia ED Provider Note HISTORY OF PRESENT ILLNESS: Patient is an 88-year-old male presenting with generalized weakness and ambulatory dysfunction. Patient presents from nephrology clinic where he was seen for a follow-up appointment. Patient states that he was slightly late to the appointment secondary to his weakness that has gotten progressively worse in the last week. Patient is normally ambulatory with a walker. He lives at [place] and states that it has been difficult for him to get around recently. He states that he has had some generalized head pressure. Denies any nausea or vomiting or abdominal pain. Denies any chest pain or shortness of breath. Denies any recent fevers. Unsure of sick contacts. Of note, the patient's did pass away last [place]. Patient denies any numbness or tingling in his extremities. Denies any dysuria or hematuria. ROS: as above PHYSICAL EXAM: Constitutional: Patient appears in no acute distress. HENT: Head: Normocephalic and atraumatic. Eyes: EOMI, PERRL Mouth/Throat: Mucous membranes moist. Neck: Trachea midline. Neck supple. Cardiovascular: RRR, No murmurs, rubs or gallops. Intact distal pulses. Pulmonary/Chest: No respiratory distress. Breath sounds clear and equal bilaterally. No wheezes or rales. Abdominal: Abdomen soft, no tenderness, rebound or guarding. Musculoskeletal: No edema, tenderness or deformity noted. Skin: Warm and dry. No rash, erythema, pallor or cyanosis Psychiatric: Appropriate mood and affect for situation. Neurological: Alert and keenly responsive. CN II-XII grossly intact, moving all extremities equally and fully. MDM: - Vitals signs showed hypertension - History obtained via patient. History as above. - Chronic conditions affecting care: CAD (s/p CABG); PE; GERD; ischemic cardiomyopathy; HTN; HLD - Differential diagnoses include, but are not limited to: UTI; pneumonia; viral syndrome; ACS; CVA; intracranial hemorrhage; electrolyte abnormality - Order placed for continuous cardiac monitoring. At this time, monitor showed rate of 86 bpm with normal sinus rhythm, per my interpretation. - External medical records reviewed. Nephrology office visit from today was reviewed. Patient was having progressive weakness and ambulatory function further documentation. They recommended evaluation in the emergency department to which the patient was agreeable - EKG interpreted by myself showed normal sinus rhythm. Rate 87 bpm. QT 376. No acute ischemic changes. Noted to have a left bundle branch block, which has been noted on previous EKGs. - Laboratory workup interpreted by myself showed normal WBC; normal PT/INR; stable electrolytes other than hypomagnesemia (Mg 1.6); normal troponin; elevated BNP (163); normal TSH - UA shows evidence of infection. Given 2g IV rocephin. - Viral respiratory panel negative - CXR negative for pneumonia, per my interpretation - CT head wo contrast negative for acute pathology - Given 1g IV magnesium for electrolyte abnormality - Discussion was had with telephonic case manager about patient's case and need for admission - Hospitalist consulted for admission - [facility] for further evaluation and management. ASSESSMENT AND PLAN: Diagnosis: Acute UTI; generalized weakness; hypomagnesemia Plan: admit Past Med/Surg History Problem List (Updated 04/04/24 @ 14:18 by Shelly Pereira MD) Hypomagnesemia (Acute) Generalized weakness (Acute) Acute UTI (urinary tract infection) (Acute) Weakness Skin tear of right upper extremity (Acute) Chronic venous insufficiency Abnormal ankle brachial index (JOE) (Acute) Venous ulcer of left leg (Acute) Depression (Chronic) Obstructive sleep apnea (Chronic) Osteoporosis (Chronic) Coronary artery disease (Chronic) Benign essential hypertension (Chronic) Hypercholesterolemia (Chronic) Gastro-esophageal reflux disease without esophagitis (Chronic) Cardiomyopathy, ischemic (Chronic) Liver lesion Kidney lesion, [place], bilateral Lower extremity weakness (Chronic) Idiopathic polyneuropathy (Chronic) Lumbar radicular pain Spinal stenosis of lumbar region at multiple levels (Chronic) Sensory ataxia Incomplete bladder emptying Lumbosacral radiculopathy at S1 CAD, multiple vessel S/P CABG x 6 Heart failure with mid-range ejection fraction Urinary incontinence Acute hyponatremia (Acute) Urethral stricture Hypomagnesemia Anemia Bladder neck contracture Sensorineural hearing loss (SNHL) of both ears Orthostatic hypotension IVCD (intraventricular conduction defect) History of prostate cancer Lumbosacral radiculopathy due to degenerative joint disease of spine Medical History Cataracts, bilateral Poor balance recently fell at home, no injuries Stroke-like symptom 03/2022, "had a mini-stroke", went to [facility] ER, admitted for 8 days, transferred to [facility]>no residual effects Urinary retention Hyponatremia Chronic CAD (coronary artery disease) - s/p CABG x6- 1983 - stent placement in a vein graft in September 2005 - several drug-eluting stents were placed in the vein graft to the right coronary artery on 09/10/2014 - recurrent angina and catheterization on 04/25/2015 showed significant disease but it was felt to be high risk for intervention therefore he has been treated medically since - exertional discomfort and we did a pharmacologic nuclear study on March 15, 2018, that showed fixed defects but no ischemia Cardiomyopathy, ischemic EF 40-45% per 03/2022 ECHO (stable per cardio records) Osteoporosis Neuropathy of both feet Spinal stenosis GERD (gastroesophageal reflux disease) controlled Hiatal hernia Depression Pulmonary embolism Post-op prostate surgery (1999) Myocardial Infarction 1983: CABG 2015: stents, [facility] Hyperlipidemia Hypertension Sleep apnea CPAP Nephrolithiasis History of adenocarcinoma of prostate dx 1999, s/p prostatectomy IVCD (intraventricular conduction defect) - left bundle type IVCD per cardio records- follows with Dr. Veronica - no indication for biventricular pacing as his ejection fraction has not been severely reduced and he does not have a lot of heart failure symptoms, although with limited activity per 08/2022 cardio records History of basal cell carcinoma removed History of squamous cell carcinoma removed Surgical History History of esophagogastroduodenoscopy (EGD) History of colonoscopy History of tooth extraction H/O cataract extraction bilat History of tonsillectomy and adenoidectomy History of lithotripsy (~2012) History of prostatectomy (~1999) hx of cancer> no radiation History of hernia repair History of coronary artery bypass graft x 6 (~1983) 1983, [facility] > follows with Dr. Veronica History of appendectomy Status post arterial stent 4 stents total 2005, 2014 Family History Mother , age 86 of heart issues Myocardial infarction Hypertension Heart disease Father , age 88 of heart issues Myocardial infarction Prostate cancer Hypertension Heart disease Brother Myocardial infarction Lung cancer Hypertension Heart disease Sister Hypertension Heart disease Other No family history of adverse response to anesthesia No family history of bleeding disorder Denies family history of Colon cancer Ovarian cancer Breast cancer Social History Smoking Status: Former smoker Tobacco Type: Cigarettes Age Started Using Tobacco: 18; Age Quit Using Tobacco: 27; packs per day: 2; Second Hand Exposure: No; Do You Dip or Chew Tobacco: No; Hx Alcohol Use: No Hx Substance Use: No Preferred Language: Frisian Communication Ability: Effective Visual Impairment: No Limitations Hearing Ability: Normal Residential Leasing Agent Required: No Beliefs That Will Affect Care: None marital status: / Current Living Situation: Alone current occupational status: retired 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) How many Children do You have: 1 Feels Safe at Home: Yes Childhood Exposure to Second-Hand Smoke: No Diet: regular caffeine: No during the past year weight has: remained stable Dental Care, Regularly: Yes Physical Activity Frequency: Does not Exercise Seatbelt Use: always Sunscreen Use: No Assistive Devices: Walker Allergies Allergies Allergy/AdvReac Type Severity Reaction Status Date / Time dapagliflozin [From [facility]] AdvReac Mild Fatigued Verified 04/04/24 11:14 meloxicam AdvReac Mild nausea Verified 04/04/24 11:14 Home Meds Home Medications Medication Instructions Recorded Confirmed multivitamin 1 tab PO HS 12/17/18 04/04/24 denosumab 60 mg/mL subcutaneous 60 mg subcut .Q6M 06/05/21 04/04/24 syringe (Prolia) coQ10 (ubiquinol) 100 mg capsule 200 mg PO HS 08/13/23 04/04/24 atorvastatin 80 mg tablet 80 mg PO QAM 04/04/24 04/04/24 clopidogrel 75 mg tablet 75 mg PO QAM 04/04/24 04/04/24 Previous Rx's Medication Instructions Recorded Hospital Bed Homecare #1 ea 09/13/23 Lift Chair #1 ea 09/13/23 lisinopril 10 mg tablet 10 mg PO QAM #90 tabs 09/20/23 nitroglycerin 0.4 mg sublingual 0.4 mg sublingual UD PRN chest 11/14/23 tablet (Nitrostat) pain #30 tabs famotidine 40 mg tablet (Pepcid) 40 mg PO BID #180 tabs 12/23/23 bupropion HCl 150 mg tablet,12 hr 150 mg PO BID #180 ea 03/29/24 sustained-release ezetimibe 10 mg tablet 10 mg PO QAM #90 tabs 03/29/24 gabapentin 400 mg capsule 400 mg PO TID #90 caps 03/29/24 Results & Data (ED) Vital Signs Vital Signs - 24 hr 04/04/24 12:10 04/04/24 12:13 04/04/24 12:13 Temperature 36.6 C Temperature Source Temporal Artery Scan Pulse Rate 87 Pulse Rate [Apical] 88 Respiratory Rate 18 16 Blood Pressure 158/87 H Blood Pressure Mean 110 Pulse Oximetry 100 96 Oxygen Delivery Method Room Air Room Air Sepsis Recent Fever Within 48 Hours No Sepsis New/Unexplained Change in Mental Status N/A Sepsis Action Taken by Nursing No Action Required 04/04/24 12:26 04/04/24 12:28 Temperature Temperature Source Pulse Rate 86 Pulse Rate [Apical] Respiratory Rate Blood Pressure Blood Pressure Mean Pulse Oximetry 98 Oxygen Delivery Method Sepsis Recent Fever Within 48 Hours Sepsis New/Unexplained Change in Mental Status Sepsis Action Taken by Nursing Laboratory Data 04/04/24 12:33 04/04/24 12:33 Lab Results 04/04/24 04/04/24 04/04/24 Range/Units 12:21 12:33 12:45 WBC 8.06 (4.8-10.8) K/ul RBC 3.72 L (4.70-6.10) M/uL Hgb 12.3 L (14.0-18.0) g/dl Hct 37.3 L (42.0-52.0) % MCV 100.3 H (80.0-100.0) fL MCH 33.1 (25.0-34.0) pg MCHC 33.0 (32.0-36.0) g/dL RDW Std Deviation 51.6 H (36.4-46.3) fL RDW Coeff of [place]ito 13.9 (11.5-14.5) % Plt Count 243 (130-400) K/uL MPV 10.2 (9.4-12.4) fL Immature Gran % (Auto) 0.5 % Neut % (Auto) 72.6 % Lymph % (Auto) 11.4 % [place] % (Auto) 13.2 % Eos % (Auto) 1.9 % Baso % (Auto) 0.4 % Neut # (Auto) 5.86 (1.40-6.50) K/uL Lymph # (Auto) 0.92 L (1.20-3.40) K/uL [place] # (Auto) 1.06 H (0.11-0.59) K/uL Eos # (Auto) 0.15 (0.00-0.50) K/uL Baso # (Auto) 0.03 (0.00-0.20) K/uL Immature Gran # (Auto) 0.04 (0.01-0.20) K/uL PT 11.3 (9.0-12.0) Seconds INR 1.0 (0.9-1.1) Sodium 136 (136-145) mmol/L Potassium 4.6 (3.5-5.1) mmol/L Chloride 102 (98-107) mmol/L Carbon Dioxide 27 (21-32) mmol/L Anion Gap 7 (3-11) BUN 24 H (6-23) mg/dl Creatinine 1.37 (0.6-1.4) mg/dl Est Cr Clr Drug Dosing 38.5 ml/min eGFR 49.62 BUN/Creatinine Ratio 17.5 (10-20) Glucose 98 (70-99(Fasting)) mg/dl Calcium 9.4 (8.6-10.3) mg/dl Magnesium 1.6 L (1.7-2.4) mg/dl Total Bilirubin 0.9 (0.2-1.0) mg/dl AST 24 (13-39) U/L ALT 29 (7-52) U/L Alkaline Phosphatase 75 (34-104) U/L Troponin I High Sens 19.5 (0-20) pg/ml B-Natriuretic Peptide 163 H (0-100) pg/ml Total Protein 6.9 (6.0-8.3) gm/dl Albumin 4.0 (3.4-5.0) gm/dl Globulin 2.9 (2.5-4.0) gm/dl Albumin/Globulin Ratio 1.4 (0.9-2) TSH 1.772 (0.300-4.500) uIu/ml Urine Color Yellow Urine Appearance Cloudy A (Clear) Urine pH 7.5 (4.5-7.5) Ur Specific [place] 1.014 (1.000-1.030) Urine Protein 1+ H (Negative) Urine Glucose (UA) Negative (Negative) Urine Ketones Negative (Negative) Urine Blood Trace H (Negative) Urine Nitrite Positive A (Negative) Urine Bilirubin Negative (Negative) Urine Urobilinogen Negative (Negative) Ur Leukocyte Esterase 3+ H (Negative) Urine WBC (Auto) >50 H (0-5) /hpf Urine RBC (Auto) 0-2 (0-2) /hpf U Hyaline Cast (Auto) 0-2 (0-2) /lpf U Epithel Cells (Auto) 0-2 (0-2) /hpf Urine Bacteria (Auto) 4+ H (None Seen) Adenovirus (PCR) Not Detected (NotDetected) B. pertussis DNA (PCR) Not Detected (NotDetected) B.parapertussis DNA PCR Not Detected (NotDetected) C. pneumoniae DNA (PCR) Not Detected (NotDetected) Coronavirus OC43 (PCR) Not Detected (NotDetected) Coronavirus HKU1 (PCR) Not Detected (NotDetected) Coronavirus 229E (PCR) Not Detected (NotDetected) SARS-CoV-2 (PCR) Not Detected (NotDetected) Coronavirus NL63 (PCR) Not Detected (NotDetected) Human Metapneumovir PCR Not Detected (NotDetected) Influenza Type A (PCR) Not Detected (NotDetected) Influenza Type B (PCR) Not Detected (NotDetected) M. pneumoniae (PCR) Not Detected (NotDetected) Parainfluenza 1 (PCR) Not Detected (NotDetected) Parainfluenza 2 (PCR) Not Detected (NotDetected) Parainfluenza 3 (PCR) Not Detected (NotDetected) Parainfluenza 4 (PCR) Not Detected (NotDetected) RSV (PCR) Not Detected (NotDetected) Entero/Rhino (PCR) Not Detected (NotDetected) Administered Medications Magnesium Sulfate/Dextrose (Magnesium Sulfate / D5w) 1 gm in 100 mls @ 100 mls/hr IV NOW STA Stop: 04/04/24 14:23 Last Admin: 04/04/24 13:29 Dose: 100 mls/hr Documented By: RAEGAN Discontinued Medications Ceftriaxone Sodium (Rocephin) 2,000 mg in 50 mls @ 100 mls/hr IV NOW STA Stop: 04/04/24 13:53 Last Admin: 04/04/24 13:29 Dose: 100 mls/hr Documented By: RAEGAN Imaging Data Radiologist's Impression: Chest X-Ray 04/04/24 12:28 XR chest 1V portable CLINICAL HISTORY: weakness COMPARISON STUDY: Chest radiograph August 05, 2023. PET/CT June 10, 2023. FINDINGS: Lung volumes are mildly diminished. There are median sternotomy wires and mediastinal surgical clips. Cardiac mediastinal silhouette is unremarkable. Is no evidence for pulmonary edema or pneumonia. There is no pneumothorax or pleural effusion. IMPRESSION: No acute cardiopulmonary findings. ACT 112: Negative or not required by law. Electronically signed by: Umang Smith M.D. 04/04/2024 1:[address] 04/04/24 12:28 CT OF THE HEAD WITHOUT CONTRAST CLINICAL HISTORY: Weakness. COMPARISON STUDY: Head CT, CTA of the head and MRI of the brain March 25, 2022. CT DOSE: 625.8 mGy.cm TECHNIQUE: Helical axial images of the head were obtained without IV contrast. Automated exposure control was utilized for the study. A dose lowering technique was utilized adhering to the principles of ALARA. FINDINGS: No acute intracranial hemorrhage, midline shift or mass effect is present. The ventricular system is stable. White matter hypodensities favor small vessel disease. The basal cisterns are patent. No extra-axial collections are present. There are no findings to suggest acute dural sinus thrombosis or acute territorial infarct. No significant calvarial abnormalities are present. There is mild sinus mucosal thickening. IMPRESSION: No acute intracranial findings. ACT 112: Negative or not required by law. Electronically signed by: Umang Smith M.D. 04/04/2024 1:33 PM Discharge Plan Visit Data Chief Complaint: Weakness Stated Complaint: WEAKNESS ED Provider: Shelly Pereira Discharge Problem: Acute UTI (urinary tract infection), Generalized weakness, Hypomagnesemia Forms Stand Alone Forms: [facility] Prescriptions Prescriptions: No Action lisinopril 10 mg tablet 10 mg PO QAM Qty: 90 3RF nitroglycerin [Nitrostat] 0.4 mg tablet, sublingual 0.4 mg sublingual UD PRN (Reason: chest pain) Qty: 30 2RF famotidine [Pepcid] 40 mg tablet 40 mg PO BID Qty: 180 3RF ezetimibe 10 mg tablet 10 mg PO QAM Qty: 90 3RF Hold Instructions: Side effects Patient Comments: pt stated no side effects for him Rx Instructions: TAKE 1 TABLET BY MOUTH DAILY (DME) Hospital Bed Homecare Misc See Rx Instructions .Route Qty: 1 0RF Rx Instructions: As directed> Length of Need: 99 (DME) Lift Chair Misc See Rx Instructions .Route Qty: 1 0RF Rx Instructions: As directed. Length of need:99 bupropion HCl 150 mg tablet sustained-release 12 hr 150 mg PO BID Qty: 180 3RF gabapentin 400 mg capsule 400 mg PO TID Qty: 90 2RF Rx Instructions: filled 03/29 30 day supply multivitamin Tablet 1 tab PO HS Prolia 60 mg/mL syringe 60 mg SUBCUT .Q6M Patient Comments: last dose last week, 01/2023 Rx Instructions: 60 mg subcut q 6 months coQ10 (ubiquinol) 100 mg capsule 200 mg PO HS atorvastatin 80 mg tablet 80 mg PO QAM Rx Instructions: TAKE 1 TABLET BY MOUTH EVERY DAY IN THE MORNING clopidogrel 75 mg tablet 75 mg PO QAM Rx Instructions: TAKE 1 TABLET BY MOUTH DAILY IN THE MORNING Referrals Referrals: Jorge Owens III, CRNP [Primary Care Provider] -
[2024-04-04 13:04] LABS: Appearance Urine Cloudy (Clear); Bacteria Urine Automated 4+ (None Seen); Bilirubin Urine Negative (Negative); Blood Urine Trace (Negative); Cast Urine Automated 0-2 /lpf (0-2); Color Urine Yellow; Epithelial Cell Urine Auto 0-2 /hpf (0-2); Glucose Urine UA Negative (Negative); Ketones Urine Negative (Negative); Leukocyte Esterase Urine 3+ (Negative); Nitrite Urine Positive (Negative); Protein Urine 1+ (Negative); RBC Urine Automated 0-2 /hpf (0-2); Specific Gravity Urine 1.014 (1.000-1.030); Urobilinogen Urine Negative (Negative); WBC Urine Automated >50 /hpf (0-5); pH Urine 7.5 (4.5-7.5)
[2024-04-04 13:08] LABS: Basophils # (auto) 0.03 K/uL (0.00-0.20); Basophils % (auto) 0.4 %; Eosinophils # (auto) 0.15 K/uL (0.00-0.50); Eosinophils % (auto) 1.9 %; Hematocrit (blood only) 37.3 % (42.0-52.0); Hemoglobin 12.3 g/dl (14.0-18.0); Immature Granulocytes # (auto) 0.04 K/uL (0.01-0.20); Immature Granulocytes % (auto) 0.5 %; Lymphocytes # (auto) 0.92 K/uL (1.20-3.40); Lymphocytes % (auto) 11.4 %; Mean Corpuscular Hemoglobin 33.1 pg (25.0-34.0); Mean Corpuscular Volume 100.3 fL (80.0-100.0); Mean Platelet Volume 10.2 fL (9.4-12.4); Monocytes # (auto) 1.06 K/uL (0.11-0.59); Monocytes % (auto) 13.2 %; Neutrophils # (auto) 5.86 K/uL (1.40-6.50); Neutrophils % (auto) 72.6 %; Platelet Count 243 K/uL (130-400); RDW Coefficient of Variation 13.9 % (11.5-14.5); RDW Standard Deviation 51.6 fL (36.4-46.3); Red Blood Count 3.72 M/uL (4.70-6.10); White Blood Count 8.06 K/ul (4.8-10.8)
[2024-04-04 13:21] LABS: Albumin Globulin Ratio 1.4 (0.9-2); BUN Creatinine Ratio 17.5 (10-20); Bilirubin,Total 0.9 mg/dl (0.2-1.0); Calcium 9.4 mg/dl (8.6-10.3); Creatinine Clr Calc Pharmacy 38.5 ml/min; Globulin 2.9 gm/dl (2.5-4.0); Magnesium 1.6 mg/dl (1.7-2.4); Potassium 4.6 mmol/L (3.5-5.1); Total Protein 6.9 gm/dl (6.0-8.3)
[2024-04-04 13:25] LABS: Troponin I High Sensitivity 19.5 pg/ml (0-20)
--- NOTE | 2024-04-04 13:25 | XRay Report ---
XR chest 1V portable CLINICAL HISTORY: weakness COMPARISON STUDY: Chest radiograph August 05, 2023. PET/CT June 10, 2023. FINDINGS: Lung volumes are mildly diminished. There are median sternotomy wires and mediastinal surgi rd clips. Cardiac mediastinal silhouette is unremarkable. Is no evidence for pulmonary edema or pneu monia. There is no pneumothorax or pleural effusion. IMPRESSION: No acute cardiopulmonary findings. ACT 112: Negative or not required by law. Electronically signed by: Umang Smith M.D. 04/04/2024 1:24 PM
[2024-04-04 13:29] LABS: Adenovirus PCR Not Detected (NotDetected); Bordetella parapertussis PCR Not Detected (NotDetected); Bordetella pertussis PCR Not Detected (NotDetected); Chlamydia pneumoniae PCR Not Detected (NotDetected); Coronavirus 229E PCR Not Detected (NotDetected); Coronavirus CoV-2 (COVID19)PCR Not Detected (NotDetected); Coronavirus HKU1 PCR Not Detected (NotDetected); Coronavirus NL63 PCR Not Detected (NotDetected); Coronavirus OC43PCR Not Detected (NotDetected); Human Metapneumovirus PCR Not Detected (NotDetected); Influenza A PCR Not Detected (NotDetected); Influenza B PCR Not Detected (NotDetected); Mycoplasma pneumoniae PCR Not Detected (NotDetected); Parainfluenza Virus 1 PCR Not Detected (NotDetected); Parainfluenza Virus 2 PCR Not Detected (NotDetected); Parainfluenza Virus 3 PCR Not Detected (NotDetected); Parainfluenza Virus 4 PCR Not Detected (NotDetected); Respiratory Syncytial VirusPCR Not Detected (NotDetected); Rhinovirus/Enterovirus PCR Not Detected (NotDetected)
[2024-04-04] MEDS: cefTRIAXone SODIUM 2,000 MG/50 ML BAG IV STA (13:29)
[2024-04-04] MEDS: MAGNESIUM SULFATE / D5W 1 GM/100 ML BAG IV STA (13:29)
[2024-04-04 13:32] LABS: Prothrombin Time 11.3 Seconds (9.0-12.0)
[2024-04-04 13:34] LABS: Thyroid Stimulating Hormone 1.772 uIu/ml (0.300-4.500)
--- NOTE | 2024-04-04 13:35 | CT Scan Report ---
CT OF THE HEAD WITHOUT CONTRAST CLINICAL HISTORY: Weakness. COMPARISON STUDY: Head CT, CTA of the head and MRI of the brain March 25, 2022. CT DOSE: 625.8 mGy.cm TECHNIQUE: Helical axial images of the head were obtained without IV contrast. Automated exposure con trol was utilized for the study. A dose lowering technique was utilized adhering to the principles o f ALARA. FINDINGS: No acute intracranial hemorrhage, midline shift or mass effect is present. The ventricular system is stable. White matter hypodensities favor small vessel disease. The basal cisterns are paten t. No extra-axial collections are present. There are no findings to suggest acute dural sinus thrombo sis or acute territorial infarct. No significant calvarial abnormalities are present. There is mild s inus mucosal thickening. IMPRESSION: No acute intracranial findings. ACT 112: Negative or not required by law. Electronically signed by: Umang Smith M.D. 04/04/2024 1:33 PM
--- NOTE | 2024-04-04 14:16 | History & Physical Report ---
Date of Service April 04, 2024 Assessment & Plan (1) Weakness: Plan: Patient is 88-year-old male with new onset of weakness and significant history of CAD, cardiomyopathy, prior PE, and prior TIA. Found to have UTI upon diagnostic workup, will be treated with antibiotics. Electrolyte abnormalities being replaced. PT/OT consulted for weakness. #UTI/weakness Symptoms of weakness in legs and fingers, reports of head/sinus pressure; susp ect secondary to UTI - No history of Pseudomonas grown on urine cultures, but has a history of Klebsiella, diphtheroids, Corynebacterium - UA show cloudy 1+ protein, trace blood, positive nitrite, presence of LE, WBC, 4+ bacteria - Pending cx - Continue Rocephin - PT/OT consults placed- pt utilizes walker at baseline #Hypomagnesemia - Mg 1.6 - Replaced w/ Mag sulfate in ED - BMP am #CAD/Ischemic Cardiomyopathy/HLD Follows w/ HF clinic (01/2024) and cardiology (10/2023) - H/o CAD, h/o stents + s/p CABG x 6 in 1983, [place] in [place] - No current symptoms of chest pain, SOB, or palpitations - EKG NSR w/ LBBB (chronic), rate ~ 85-90 bpm - Troponin 19.5 - BNP 163 --> Not volume overloaded at this time, supported by exam - Medications atorvastatin, ezetimibe, clopidogrel, lisinopril Chronic conditions: GERD- Famotidine Neuropathy- Gabapentin Dispo: Admit Diet: Heart healthy VTE Prophylaxis: Lovenox Code: DNR/DNI This document was dictated utilizing Snaptu. Please excuse any grammatical errors that may be secondary to use of this software. (2) HTN (hypertension): (3) Coronary artery disease: (4) Cardiomyopathy, ischemic: Admission and Anticipated Discharge Date Admission Date: 04/04/2024 History of Present Illness Chief Complaint: Weakness Primary Care Provider: Jorge Owens III, IMANI 88-year-old male presenting to ED via EMS for weakness in legs and fingers. ED course: CBC RBC 3.72, H&H 12.3/37.3, MCV 100.3, RDW 51.6, lymphocytes 0.92, monocytes 1.06; PT/INR WNL; CMP BUN 24; magnesium 1.6; BNP 163; TSH 1.772; UA cloudy, 1+ protein, trace blood, positive nitrate, presence of LE, WBC, and 4+ bacteria; BioFire negative; CXR without acute cardiopulmonary findings; head CT without acute intracranial findings; EKG NSR, LBBB, rate around 85 to 90 bpm.; Patient provided with magnesium and ceftriaxone in ED. Patient is 88-year-old male with PMHx CAD, ischemic cardiomyopathy, GERD, HLD, HTN, sleep apnea (CPAP), depression, and prior pulmonary embolism (1999 and) and TIA (2021) who presents for new onset weakness. States that this began approximately 3 days ago, just mainly in his legs he says that he has neuropathy at baseline site. This is also impacting the weakness. He does not have any neurologic deficits otherwise to include headache, vision changes, abnormalities of numbness/tingling, or specific limb weakness. Patient states that he normally does not have symptoms when he has a UTI, therefore denying LUTS at this time. Patient denies recent falls, lightheadedness, syncope, or LOC. Also denying chest pain, shortness of breath, palpitations, abdominal pain, N/V/D/C. Please use the following medications. Please see Dr. Razo's attestation for adjustments/additions to treatment plan. Allergies Allergy/AdvReac Type Severity Reaction Status Date / Time dapagliflozin [From [facility]] AdvReac Mild Fatigued Verified 04/04/24 11:14 meloxicam AdvReac Mild nausea Verified 04/04/24 11:14 Home Medications Medication Instructions Recorded Confirmed Type multivitamin 1 tab PO HS 12/17/18 04/04/24 History denosumab 60 mg/mL subcutaneous 60 mg subcut .Q6M 06/05/21 04/04/24 History syringe (Prolia) coQ10 (ubiquinol) 100 mg capsule 200 mg PO HS 08/13/23 04/04/24 History Hospital Bed Homecare #1 ea 09/13/23 04/04/24 Rx Lift Chair #1 ea 09/13/23 04/04/24 Rx lisinopril 10 mg tablet 10 mg PO QAM #90 tabs 09/20/23 04/04/24 Rx nitroglycerin 0.4 mg sublingual 0.4 mg sublingual UD PRN chest 11/14/23 04/04/24 Rx tablet (Nitrostat) pain #30 tabs famotidine 40 mg tablet (Pepcid) 40 mg PO BID #180 tabs 12/23/23 04/04/24 Rx bupropion HCl 150 mg tablet,12 hr 150 mg PO BID #180 ea 03/29/24 04/04/24 Rx sustained-release ezetimibe 10 mg tablet 10 mg PO QAM #90 tabs 03/29/24 04/04/24 Rx gabapentin 400 mg capsule 400 mg PO TID #90 caps 03/29/24 04/04/24 Rx atorvastatin 80 mg tablet 80 mg PO QAM 04/04/24 04/04/24 History clopidogrel 75 mg tablet 75 mg PO QAM 04/04/24 04/04/24 History Past Med/Surg History Problem List (Updated 04/04/24 @ 16:47 by Katerine Renteria) Hypomagnesemia (Acute) Generalized weakness (Acute) Acute UTI (urinary tract infection) (Acute) Weakness Skin tear of right upper extremity (Acute) Chronic venous insufficiency Abnormal ankle brachial index (JOE) (Acute) Venous ulcer of left leg (Acute) Depression (Chronic) Obstructive sleep apnea (Chronic) Osteoporosis (Chronic) Coronary artery disease (Chronic) Benign essential hypertension (Chronic) Hypercholesterolemia (Chronic) Gastro-esophageal reflux disease without esophagitis (Chronic) Cardiomyopathy, ischemic (Chronic) Liver lesion Kidney lesion, upper [place], bilateral Lower extremity weakness (Chronic) Idiopathic polyneuropathy (Chronic) Lumbar radicular pain Spinal stenosis of lumbar region at multiple levels (Chronic) Sensory ataxia Incomplete bladder emptying Lumbosacral radiculopathy at S1 CAD, multiple vessel S/P CABG x 6 Heart failure with mid-range ejection fraction Urinary incontinence Acute hyponatremia (Acute) Urethral stricture Hypomagnesemia Anemia Bladder neck contracture Sensorineural hearing loss (SNHL) of both ears Orthostatic hypotension IVCD (intraventricular conduction defect) History of prostate cancer Lumbosacral radiculopathy due to degenerative joint disease of spine Medical History Cataracts, bilateral Poor balance recently fell at home, no injuries Stroke-like symptom 03/2022, "had a mini-stroke", went to [facility] ER, admitted for 8 days, transferred to [facility]>no residual effects Urinary retention Hyponatremia Chronic CAD (coronary artery disease) - s/p CABG x6- 1983 - stent placement in a vein graft in September 2005 - several drug-eluting stents were placed in the vein graft to the right coronary artery on 09/10/2014 - recurrent angina and catheterization on 04/25/2015 showed significant disease but it was felt to be high risk for intervention therefore he has been treated medically since - exertional discomfort and we did a pharmacologic nuclear study on March 15, 2018, that showed fixed defects but no ischemia Cardiomyopathy, ischemic EF 40-45% per 03/2022 ECHO (stable per cardio records) Osteoporosis Neuropathy of both feet Spinal stenosis GERD (gastroesophageal reflux disease) controlled Hiatal hernia Depression Pulmonary embolism Post-op prostate surgery (1999) Myocardial Infarction 1983: CABG 2014: stents, [facility] Hyperlipidemia Hypertension Sleep apnea CPAP Nephrolithiasis History of adenocarcinoma of prostate dx 1999, s/p prostatectomy IVCD (intraventricular conduction defect) - left bundle type IVCD per cardio records- follows with Dr. Veronica - no indication for biventricular pacing as his ejection fraction has not been severely reduced and he does not have a lot of heart failure symptoms, although with limited activity per 08/2022 cardio records History of basal cell carcinoma removed History of squamous cell carcinoma removed Surgical History History of esophagogastroduodenoscopy (EGD) History of colonoscopy History of tooth extraction H/O cataract extraction bilat History of tonsillectomy and adenoidectomy History of lithotripsy (~2012) History of prostatectomy (~1999) hx of cancer> no radiation History of hernia repair History of coronary artery bypass graft x 6 (~1983) 1984, [facility] [place] > follows with Dr. Veronica History of appendectomy Status post arterial stent 4 stents total 2005, 2014 Family History Mother , age 86 of heart issues Myocardial infarction Hypertension Heart disease Father , age 88 of heart issues Myocardial infarction Prostate cancer Hypertension Heart disease Brother Myocardial infarction Lung cancer Hypertension Heart disease Sister Hypertension Heart disease Other No family history of adverse response to anesthesia No family history of bleeding disorder Denies family history of Colon cancer Ovarian cancer Breast cancer Social History Smoking Status: Former smoker Tobacco Type: Cigarettes Age Started Using Tobacco: 18; Age Quit Using Tobacco: 27; packs per day: 2; Second Hand Exposure: No; Do You Dip or Chew Tobacco: No; Hx Alcohol Use: No Hx Substance Use: No Preferred Language: Slovak Communication Ability: Effective Visual Impairment: No Limitations Hearing Ability: Normal Blast Furnace Blower Required: No Beliefs That Will Affect Care: None marital status: / Current Living Situation: Alone current occupational status: retired 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) How many Children do You have: 1 Feels Safe at Home: Yes Childhood Exposure to Second-Hand Smoke: No Diet: regular caffeine: No during the past year weight has: remained stable Dental Care, Regularly: Yes Physical Activity Frequency: Does not Exercise Seatbelt Use: always Sunscreen Use: No Assistive Devices: Walker Review of Systems Review of Systems: All systems reviewed & are unremarkable except as noted in Subjective Physical Exam Physical Exam: General: No acute distress Skin: Warm and dry, without rashes or lesions Head: Normocephalic, atraumatic Eyes: PERRL, conjunctivae clear, sclera non-icteric; EOM intact ENT: External ear and ear canal without swelling; nose atraumatic; good dentition, tongue normal appearance, pharynx normal without tonsillar swelling or exudate Neck: Supple, no LAD Cardio: RRR, no M/G/R, S1 and S2 normal Resp: o respiratory distress, Lungs CTA in all lobes bilaterally, no wheezes, rales, or rhonchi Abdomen: Soft, symmetric, nontender; No visible lesions or scars; no distention; No masses or hepatosplenomegaly; Bowel sounds normoactive MSK: No deformities, full ROM throughout; pulses palpable and equal; no edema; L ankle wrapped in RUFINO wrap s/p [place] Sx Neuro: Awake, alert; Muscle strength 5/5 bilaterally in UE/LE; Sensation intact bilaterally; CN intact Psych: Appropriate mood and affect; good judgement and insight. Results & Data Results & Data Vital Signs (Past 12 Hours) Vital Signs Temp Pulse Pulse Resp BP Pulse Ox O2 Del Method 04/04/24 12:28 98 04/04/24 12:26 86 04/04/24 12:13 88 16 96 04/04/24 12:13 Room Air 04/04/24 12:10 36.6 C 87 18 158/87 H 100 Room Air Laboratory Results 04/04/24 12:45 Urine Culture - Pending Urine,Clean Catch 04/04/24 04/04/24 04/04/24 12:45 12:33 12:21 WBC 8.06 RBC 3.72 L Hgb 12.3 L Hct 37.3 L MCV 100.3 H MCH 33.1 MCHC 33.0 RDW Std Deviation 51.6 H RDW Coeff of Pito 13.9 Plt Count 243 MPV 10.2 Immature Gran % (Auto) 0.5 Neut % (Auto) 72.6 Lymph % (Auto) 11.4 [place] % (Auto) 13.2 Eos % (Auto) 1.9 Baso % (Auto) 0.4 Neut # (Auto) 5.86 Lymph # (Auto) 0.92 L [place] # (Auto) 1.06 H Eos # (Auto) 0.15 Baso # (Auto) 0.03 Immature Gran # (Auto) 0.04 PT 11.3 INR 1.0 Sodium 136 Potassium 4.6 Chloride 102 Carbon Dioxide 27 Anion Gap 7 BUN 24 H Creatinine 1.37 Est Cr Clr Drug Dosing 38.5 eGFR 49.62 BUN/Creatinine Ratio 17.5 Glucose 98 Calcium 9.4 Magnesium 1.6 L Total Bilirubin 0.9 AST 24 ALT 29 Alkaline Phosphatase 75 Troponin I High Sens 19.5 B-Natriuretic Peptide 163 H Total Protein 6.9 Albumin 4.0 Globulin 2.9 Albumin/Globulin Ratio 1.4 TSH 1.772 Urine Color Yellow Urine Appearance Cloudy A Urine pH 7.5 Ur Specific Faison 1.014 Urine Protein 1+ H Urine Glucose (UA) Negative Urine Ketones Negative Urine Blood Trace H Urine Nitrite Positive A Urine Bilirubin Negative Urine Urobilinogen Negative Ur Leukocyte Esterase 3+ H Urine WBC (Auto) >50 H Urine RBC (Auto) 0-2 U Hyaline Cast (Auto) 0-2 U Epithel Cells (Auto) 0-2 Urine Bacteria (Auto) 4+ H Adenovirus (PCR) Not Detected B. pertussis DNA (PCR) Not Detected B.parapertussis DNA PCR Not Detected C. pneumoniae DNA (PCR) Not Detected Coronavirus OC43 (PCR) Not Detected Coronavirus HKU1 (PCR) Not Detected Coronavirus 229E (PCR) Not Detected SARS-CoV-2 (PCR) Not Detected Coronavirus NL63 (PCR) Not Detected Human Metapneumovir PCR Not Detected Influenza Type A (PCR) Not Detected Influenza Type B (PCR) Not Detected M. pneumoniae (PCR) Not Detected Parainfluenza 1 (PCR) Not Detected Parainfluenza 2 (PCR) Not Detected Parainfluenza 3 (PCR) Not Detected Parainfluenza 4 (PCR) Not Detected RSV (PCR) Not Detected Entero/Rhino (PCR) Not Detected Diagnostic Findings Chest X-Ray 04/04/24 12:28 XR chest 1V portable CLINICAL HISTORY: weakness COMPARISON STUDY: Chest radiograph August 05, 2023. PET/CT June 10, 2023. FINDINGS: Lung volumes are mildly diminished. There are median sternotomy wires and mediastinal surgical clips. Cardiac mediastinal silhouette is unremarkable. Is no evidence for pulmonary edema or pneumonia. There is no pneumothorax or pleural effusion. IMPRESSION: No acute cardiopulmonary findings. ACT 112: Negative or not required by law. Electronically signed by: Umang Smith M.D. 04/04/2024 1:[address] 04/04/24 12:28 CT OF THE HEAD WITHOUT CONTRAST CLINICAL HISTORY: Weakness. COMPARISON STUDY: Head CT, CTA of the head and MRI of the brain March 25, 2022. CT DOSE: 625.8 mGy.cm TECHNIQUE: Helical axial images of the head were obtained without IV contrast. Automated exposure control was utilized for the study. A dose lowering technique was utilized adhering to the principles of ALARA. FINDINGS: No acute intracranial hemorrhage, midline shift or mass effect is present. The ventricular system is stable. White matter hypodensities favor small vessel disease. The basal cisterns are patent. No extra-axial collections are present. There are no findings to suggest acute dural sinus thrombosis or acute territorial infarct. No significant calvarial abnormalities are present. There is mild sinus mucosal thickening. IMPRESSION: No acute intracranial findings. ACT 112: Negative or not required by law. Electronically signed by: Umang Smith M.D. 04/04/2024 1:33 PM Code Status & VTE Plan Code Status DNR/DNI Supervising Physician Co-Signing Physician Notes Patient seen and examined, chart reviewed, case discussed with Ruddy Danny, PA-C and I agree with the assessment and plan as above except as otherwise noted Labs and images reviewed 88-year-old male presents with weakness of 3 days. No focal neurologic deficits. No fevers or chills. No dyspnea, chest pain, nausea, vomiting, or abdominal pain. He does not have a leukocytosis. He does not have an CESAR. UA is infected of urine, BioFire is negative. Due to weakness and inability to ambulate at baseline patient is recommended for observation, PT/OT, and UTI treatment. He is seen following admission on evening reevaluation nontoxic- appearing at the bedside. He does not meet sepsis criteria. Agree with above PG Care Time/CCT Total # of Minutes Spent Total Time Spent with Patient: Total time spent is greater than 50% in coordination of care (as documented) at patient's floor/unit and/or counseling patient: Coding Level of Care Code 55350 INT INP/OBS CARE 3/75MIN Diagnoses Weakness R53.1 HTN (hypertension) I10 Coronary artery disease involving autologous vein coronary bypass graft without angina pectoris I25.810 Associated angina: without angina Coronary Disease-Associated Artery/Lesion type: bypass graft, autologous vein Cardiomyopathy, ischemic I25.5 (3) Coronary artery disease Associated angina: without angina Coronary Disease-Associated Artery/Lesion type: bypass graft, autologous vein Qualified Code(s): I25.810 - Atherosclerosis of coronary artery bypass graft(s) without angina pectoris
[2024-04-04] MEDS ORDERED: NITROGLYCERIN SL 0.4 MG/TAB TAB SL PRN (16:52)
--- NOTE | 2024-04-04 17:46 | Electrocardiogram Report ---
Test Reason : Blood Pressure : */* mmHG Vent. Rate : 87 BPM Atrial Rate : 87 BPM P-R Int : 208 ms QRS Dur : 152 ms QT Int : 376 ms P-R-T Axes : 48 36 230 degrees QTcB Int : 452 ms Normal sinus rhythm Left bundle branch block Abnormal ECG When compared with ECG of 11-Oct-2023 12:01, (unconfirmed) Premature ventricular complexes are no longer Present Confirmed by Carlo Navarro ([id number]) on 04/04/2024 5:46:35 PM Referred By: Confirmed By: Carlo Navarro
[2024-04-04] MEDS ORDERED: NON-FORMULARY MEDICATION (Coq10 (Ubiquinol) 100 mg capsule) PO SCH (21:00)
[2024-04-04] MEDS: FAMOTIDINE 40 MG TABLET PO SCH (21:04)
[2024-04-04] MEDS: ENOXAPARIN INJ 40 MG/0.4 ML SYR SQ SCH (21:04)
[2024-04-04] MEDS: GABAPENTIN 400 MG CAP PO SCH (21:04)
[2024-04-04] MEDS: buPROPion SR 150 MG TABCR PO SCH (21:04)
[2024-04-05 06:28] LABS: Hematocrit (blood only) 36.1 % (42.0-52.0); Mean Corpuscular Hemoglobin 33.2 pg (25.0-34.0); Mean Corpuscular Hgb Conc 33.2 g/dL (32.0-36.0); Mean Platelet Volume 10.1 fL (9.4-12.4); Platelet Count 227 K/uL (130-400); RDW Coefficient of Variation 13.5 % (11.5-14.5); RDW Standard Deviation 50.2 fL (36.4-46.3); Red Blood Count 3.61 M/uL (4.70-6.10); White Blood Count 7.42 K/ul (4.8-10.8)
[2024-04-05 06:51] LABS: BUN Creatinine Ratio 16.9 (10-20); Creatinine Clr Calc Pharmacy 40.6 ml/min; Potassium 4.4 mmol/L (3.5-5.1)
[2024-04-05] MEDS: EZETIMIBE 10 MG TAB PO SCH (08:24)
[2024-04-05] MEDS: ATORVASTATIN 40 MG TAB PO SCH (08:24)
[2024-04-05] MEDS: CLOPIDOGREL BISULFATE 75 MG TAB PO SCH (08:25)
[2024-04-05] MEDS: lisinopril 10 MG TAB PO SCH (08:26)
[2024-04-05] MEDS: cefTRIAXone SODIUM 2,000 MG/50 ML BAG IV SCH (13:21)
--- NOTE | 2024-04-05 15:05 | Hospitalist Progress Note ---
Date of Service April 05, 2024 Assessment & Plan (1) Weakness: (2) HTN (hypertension): (3) Coronary artery disease: (4) Cardiomyopathy, ischemic: Plan Patient is 88-year-old male with new onset of weakness and significant history of CAD, cardiomyopathy, prior PE, and prior TIA. Found to have UTI upon diagnostic workup, will be treated with antibiotics. Electrolyte abnormalities being replaced. PT/OT consulted for weakness. #UTI/weakness Symptoms of weakness in legs and fingers, reports of head/sinus pressure; suspect secondary to UTI - No history of Pseudomonas grown on urine cultures, but has a history of Klebsiella, diphtheroids, Corynebacterium - UA show cloudy 1+ protein, trace blood, positive nitrite, presence of LE, WBC, 4+ bacteria - Urine cx positive for Morganella morgani, sensitivities pending - Continue Rocephin - PT/OT consults placed- pt utilizes walker at baseline - Plan for d/c once sensitivities and PT/OT recommendations are completed #Hypomagnesemia - Mg 1.6, Replaced w/ Mag sulfate in ED - Resolved #CAD/Ischemic Cardiomyopathy/HLD Follows w/ HF clinic (01/2024) and cardiology (10/2023) - H/o CAD, h/o stents + s/p CABG x 6 in 1983, [place] in 2014 - No current symptoms of chest pain, SOB, or palpitations - EKG NSR w/ LBBB (chronic), rate ~ 85-90 bpm - Troponin 19.5 - BNP 163 --> Not volume overloaded at this time, supported by exam - Medications atorvastatin, ezetimibe, clopidogrel, lisinopril outpatient Chronic conditions: GERD- Famotidine Neuropathy- Gabapentin Dispo: Admit Diet: Heart healthy VTE Prophylaxis: Lovenox Code: DNR/DNI Admission and Anticipated Discharge Date Admission Date: April 04, 2024 Supervising Physician Co-Signing Physician Notes Attending attestation Pt seen and examined in concert with Dr. Cardoso. In agreement with the documented findings as noted in the resident documentation with any exceptions or additions as noted here. Reports some improvement in fatigue and weakness since admission, but still having fatigability with ambulation from bathroom to bed and back. On examination, S1/S2 nl RRR no MCG. CTAB. Abd NT/ND BS+ve Generalized weakness in the setting of UTI - improving - continue rocephin and follow cultures. PT/OT evaluation. Else see resident documentation as noted. Subjective Sawyer Rahman is a 88 y/o M arriving at [facility] with a past medical history of CAD, cardiomyopathy, PE, TIA arriving at [facility] for confusion, electrolyte abnormalities, and weakness. This morning patient is seen resting comfortably in bed. Patient denies burning and dysuria but endorses increased urinary urgency. Patient denies chest pain, palpitations, SOB, cough, wheeze, abdominal pain, nausea, or vomiting. Patient is alert and oriented and has no acute complaints or concerns. Physical Exam Physical Exam: General: patient resting comfortably, NAD, non-toxic in appearance, answers questions appropriately. Skin: warm, dry, intact HEENT: NC/AT, anicteric sclera, conjunctiva without injection, moist mucus membranes. Heart: +S1/S2, regular, no m/r/g Lungs: equal air entry bilaterally, no rales/rhonchi/wheezes Abd: +BS, soft, NT/ND Ext: warm, no clubbing/cyanosis or edema Neuro: nonfocal, speech intact, no facial droop, moving all extremities. Results & Data Results & Data Vital Signs (Past 12 Hours) Vital Signs Temp Pulse Resp BP Pulse Ox O2 Del Method 04/05/24 07:09 36.6 C 64 18 148/69 H 96 Room Air Resident Activity Tracking Resident Involvement: Resident Care Provided Care Provided: Adult Hospital Medicine (3) Coronary artery disease Associated angina: without angina Coronary Disease-Associated Artery/Lesion type: bypass graft, autologous vein Qualified Code(s): I25.810 - Atheroscleros is of coronary artery bypass graft(s) without angina pectoris
[2024-04-06 07:53] VITALS: BP 143/70; PULSE 68; RESP 16; TEMP 97.3; O2SAT 97
[2024-04-06 08:11] LABS: Hemoglobin 12.2 g/dl (14.0-18.0); Mean Platelet Volume 10.4 fL (9.4-12.4); Platelet Count 231 K/uL (130-400); RDW Coefficient of Variation 13.8 % (11.5-14.5); RDW Standard Deviation 50.7 fL (36.4-46.3); White Blood Count 8.14 K/ul (4.8-10.8)
[2024-04-06 08:14] LABS: BUN Creatinine Ratio 18.4 (10-20); Calcium 8.8 mg/dl (8.6-10.3); Creatinine Clr Calc Pharmacy 38.8 ml/min; Potassium 4.2 mmol/L (3.5-5.1)
--- NOTE | 2024-04-06 15:11 | Discharge Summary ---
Date of Service April 06, 2024 Admission HPI Per Admitting Provider 88-year-old male presenting to ED via EMS for weakness in legs and fingers. ED course: CBC RBC 3.72, H&H 12.3/37.3, MCV 100.3, RDW 51.6, lymphocytes 0.92, monocytes 1.06; PT/INR WNL; CMP BUN 24; magnesium 1.6; BNP 163; TSH 1.772; UA cloudy, 1+ protein, trace blood, positive nitrate, presence of LE, WBC, and 4+ bacteria; BioFire negative; CXR without acute cardiopulmonary findings; head CT without acute intracranial findings; EKG NSR, LBBB, rate around 85 to 90 bpm.; Patient provided with magnesium and ceftriaxone in ED. Patient is 88-year-old male with PMHx CAD, ischemic cardiomyopathy, GERD, HLD, HTN, sleep apnea (CPAP), depression, and prior pulmonary embolism (1999 and) and TIA (2021) who presents for new onset weakness. States that this began approximately 3 days ago, just mainly in his legs he says that he has neuropathy at baseline site. This is also impacting the weakness. He does not have any neurologic deficits otherwise to include headache, vision changes, abnormalities of numbness/tingling, or specific limb weakness. Patient states that he normally does not have symptoms when he has a UTI, therefore denying LUTS at this time. Patient denies recent falls, lightheadedness, syncope, or LOC. Also denying chest pain, shortness of breath, palpitations, abdominal pain, N/V/D/C. Please use the following medications. Please see Dr. Razo's attestation for adjustments/additions to treatment plan. Principal Diagnosis UTI, confusion, weakness Discharge Exam General: patient resting comfortably, NAD, non-toxic in appearance, answers questions appropriately. Skin: warm, dry, intact HEENT: NC/AT, anicteric sclera, conjunctiva without injection, moist mucus membranes. Heart: +S1/S2, regular, no m/r/g Lungs: equal air entry bilaterally, no rales/rhonchi/wheezes Abd: +BS, soft, NT/ND Ext: warm, no clubbing/cyanosis or edema Neuro: nonfocal, speech intact, no facial droop, moving all extremities. Discharge Data Allergies Allergy/AdvReac Type Severity Reaction Status Date / Time dapagliflozin [From [facility]] AdvReac Mild Fatigued Verified 04/04/24 11:14 meloxicam AdvReac Mild nausea Verified 04/04/24 11:14 Consultations 04/04/24 14:03 ED Decision to Admit Stat Ordered Studies 04/04/24 12:28 CT head/brain wo con Stat Hospital Course (1) Weakness: (2) HTN (hypertension): (3) Coronary artery disease: (4) Cardiomyopathy, ischemic: Plan Patient is 88-year-old male with new onset of weakness and significant history of CAD, cardiomyopathy, prior PE, and prior TIA. Found to have UTI upon diagnostic workup, will be treated with antibiotics. Electrolyte abnormalities being replaced. PT/OT consulted for weakness. #UTI/weakness Symptoms of weakness in legs and fingers, reports of head/sinus pressure; suspect secondary to UTI - No history of Pseudomonas grown on urine cultures, but has a history of Klebsiella, diphtheroids, Corynebacterium - UA show cloudy 1+ protein, trace blood, positive nitrite, presence of LE, WBC, 4+ bacteria - Urine cx positive for Morganella morgani, sensitivities pending - Continue Rocephin - PT/OT consults placed- pt utilizes walker at baseline - d/c with cefpodoxime 200mg BID x5 days, PT evaluation completed and wnl, comfortable sending patient back to [facility] #Hypomagnesemia - Mg 1.6, Replaced w/ Mag sulfate in ED - Resolved #CAD/Ischemic Cardiomyopathy/HLD Follows w/ HF clinic (01/2024) and cardiology (10/2023) - H/o CAD, h/o stents + s/p CABG x 6 in 1983, VT in 2014 - No current symptoms of chest pain, SOB, or palpitations - EKG NSR w/ LBBB (chronic), rate ~ 85-90 bpm - Troponin 19.5 - BNP 163 --> Not volume overloaded at this time, supported by exam - Medications atorvastatin, ezetimibe, clopidogrel, lisinopril outpatient Chronic conditions: GERD- Famotidine Neuropathy- Gabapentin Dispo: Admit Diet: Heart healthy VTE Prophylaxis: Lovenox Code: DNR/DNI Total Time Total Time Spent Total Time Spent (In Minutes): See attending attestation Discharge Plan Discharge Items Patient Disposition: Personal Shelter Reason For Visit: WEAKNESS, UTI Discharge Diagnosis: Weakness, UTI Activity: Per Instructions section Non-emergency contact: Primary Care Provider Call non-emergency contact if: your symptoms worsen and your pain is not controlled Follow-up/Referrals: Jorge Owens III, CRNP [Primary Care Provider] - Diet: Regular Addtl Attending Provider Instructions: You were admitted to [facility] due to electrolyte abnormalities, confusion, weakness, and a urinary tract infection. While at [facility] over the past two days you quickly improved and returned to baseline status. While at [facility] you were treated with magnesium and potassium replenishment, this quickly restored these electrolytes to normal levels. After this a urine sample was obtained and cultured, and was shown to grow bacteria. Although you did not have symptoms of urinary tract infection during your stay, these infections can often cause confusion and weakness, and thus you were treated with an antibiotic, ceftriaxone, during your stay. In addition, physical therapy worked with you today and assessed that you were able to independently ambulate with your rollator and were close to baseline levels of mobility. Continue to use the exercise techniques you have learned with PT when going back to [place]. A antibiotic has been prescribed for you to take one dose of tonight, and then twice daily for the next 5 days to clear up your urinary tract infection. The antibiotic dosages and instructions are outlined below and have also been sent to your pharmacy. A discharge summary will be sent to your primary care physician to ensure continuity of care. Please bring this discharge summary with you to your next office appointment so that your provider can review it at that time. Medications: Your medication list has been reviewed and reconciled upon discharge to ensure accuracy and continuity of care. An updated list of all your medications is included with your hospital discharge paperwork. Please review this list closely, and make note of any changes. Please take Cefpodoxime 200mg one tablet tonight. After this take Cefpodoxime 200mg twice daily for the next 5 days. In summary 1 tablet tonight and 10 tablets over the next 5 days for a total of 11 tablets. Take your medications as instructed; do not skip a dose of your medicines. Make sure all of your doctors know every medicine you are taking (including [id number] medicines, vitamins, and supplements). Call your primary care provider before taking any new medicines (including umna-aob-ufzqtgi medicines, vitamins, and supplements), because some of these may interact with your current medications, or may make your symptoms worse. Tell your primary care provider if you cannot afford your medications. CALL 911 OR GO TO THE EMERGENCY DEPARTMENT if you experience any of the following: Sudden, severe abdominal pain or nausea/vomiting Severe chest pain, or chest pain that radiates (moves) to your jaw or arm Sudden, severe shortness of breath or difficulty breathing Thank you for allowing us to participate in your care. Pending Studies at Discharge: No Stand-Alone Forms: [facility] [employer], Smoking Cessation Skilled Items Patient informed of condition?: Yes DNR: Yes Discharge Level of Care: Other Communicable Disease: No Discharge Prognosis: Stable Lines: None Urinary Catheter: No Medications and DC Order Prescriptions: New cefpodoxime 200 mg tablet 200 mg PO BID Qty: 11 0RF Rx Instructions: must administer with a meal/food. Please take cefpodoxime 200mg one tablet tonight. After take Cefpodoxime 200mg twice daily for the next 5 days. Continued lisinopril 10 mg tablet 10 mg PO QAM Qty: 90 3RF nitroglycerin [Nitrostat] 0.4 mg tablet, sublingual 0.4 mg sublingual UD PRN (Reason: chest pain) Qty: 30 2RF famotidine [Pepcid] 40 mg tablet 40 mg PO BID Qty: 180 3RF ezetimibe 10 mg tablet 10 mg PO QAM Qty: 90 3RF Hold Instructions: Side effects Patient Comments: pt stated no side effects for him Rx Instructions: TAKE 1 TABLET BY MOUTH DAILY (DME) Hospital Bed [facility] See Rx Instructions .Route Qty: 1 0RF Rx Instructions: As directed> Length of Need: 99 (DME) Lift Chair Misc See Rx Instructions .Route Qty: 1 0RF Rx Instructions: As directed. Length of need:99 bupropion HCl 150 mg tablet sustained-release 12 hr 150 mg PO BID Qty: 180 3RF gabapentin 400 mg capsule 400 mg PO TID Qty: 90 2RF Rx Instructions: filled 03/29 30 day supply multivitamin Tablet 1 tab PO HS Prolia 60 mg/mL syringe 60 mg SUBCUT .Q6M Patient Comments: last dose last week, 01/2023 Rx Instructions: 60 mg subcut q 6 months coQ10 (ubiquinol) 100 mg capsule 200 mg PO HS atorvastatin 80 mg tablet 80 mg PO QAM Rx Instructions: TAKE 1 TABLET BY MOUTH EVERY DAY IN THE MORNING clopidogrel 75 mg tablet 75 mg PO QAM Rx Instructions: TAKE 1 TABLET BY MOUTH DAILY IN THE MORNING Discharge Orders: Discharge Order (Routine); Ordered 04/06/24 Ordered By: Shankar Bell/Other Patient Handouts: Cefpodoxime Oral Tablet, Urinary Tract Infections in Men Admission Data Admit Date/Time: 04/04/24 14:34 Attending Provider: Carlo Fuentes Admit Provider: Pavan Razo Primary Care Provider: Jorge Owens III Other Providers: Pavan Razo Supervising Physician Co-Signing Physician Notes Attending attestation Pt seen and examined in concert with Dr. Cardoso. In agreement with the documented findings as noted in the resident documentation with any exceptions or additions as noted here. Ongoing improvement in fatigue and weakness since admission. On examination, S1/S2 nl RRR no MCG. CTAB. Abd NT/ND BS+ve Generalized weakness in the setting of UTI - improving - transition to PO cefpodoxime to complete course. Encourage ongoing engagement with rehab services. Else see resident documentation as noted. Total attending physician time spent with this patient's care on the day of discharge: 32 minutes. Resident Activity Tracking Resident Involvement: Resident Care Provided Care Provided: Adult Hospital Medicine
== END 2024-04-06 16:46 | disposition home or self-care (01) | DRG 690 ==
LOC: ED 12:17 → SUATTDRO 14:34 → EDINP 14:34 → 3W 16:53